=== PATIENT | female | born 1945 | race Caucasian/White ===

== ENCOUNTER → 2020-08-08 14:03 | Outpatient (BNVA) | payer MEDICARE, SELFPAY | PROVIDERS: PCP Internal Medicine; Visit Provider Hospitalist | DX: J47.9 Bronchiectasis, uncomplicated (principal); J45.909 Unspecified asthma, uncomplicated; R91.8 Other nonspecific abnormal finding of lung field; A31.9 Mycobacterial infection, unspecified | CPT/HCPCS: 99212 ==

== ENCOUNTER 2020-10-28 13:59 | Outpatient (REF) | payer MEDICARE, SELFPAY ==
--- NOTE | 2020-10-28 16:34 | PFT_ITS ---
INDICATION: Bronchiectasis. SPIROMETRY: The FEV1 to FVC 54% with an FEV1 of 1.1 L, which is 49% predicted, and an FVC of 2.05 L, which is 69% predicted. There was a significant response to bronchodilators noted. Maximum voluntary ventilation 49% predicted. LUNG VOLUMES: Total lung capacity 73% predicted. DIFFUSION CAPACITY: DLCO 31% predicted. COMPARISONS: None available. INTERPRETATION: There is an obstructive ventilatory defect consistent with severe COPD. There was a significant response to bronchodilators noted. There is a moderate to severe decrease in the maximum voluntary ventilation secondary to likely deconditioning. 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 In addition to that, there appears to be a severe diffusion impairment. Also to note, the patient did go for 6 minutes walk test where she desaturated down to 86% on room air with activity. The patient did qualify for oxygen 2 L with activity, maintaining a pulse ox in the low 90s. MD AZUCENA Gonzalez/VIANEY / [id number]
[2020-10-28 18:13] LABS: MANUAL DIFF FLAG NO
[2020-10-28 18:24] LABS: Basophils Absolute Auto 0.1 X10*3/uL (0.0-0.2); Basophils Percent Auto 0.7 % (0-2); D Dimer 252 NG/ML; Eosinophils Absolute Auto 0.4 X10*3/uL (0.0-0.4); Eosinophils Percent Auto 3.8 % (0-4); Hematocrit 37.1 % (37-47); Hemoglobin 12.9 g/dl (12.0-16.0); Imm Gran Abs Auto 0.05 X10*3/uL (0.00-0.03); Imm Gran Pct Auto 0.5 % (0.0-0.4); Lymphocytes Percent Auto 18.1 % (20-40); Mean Corpuscular HGB Conc 34.8 g/dl (31.0-35.0); Mean Corpuscular Hemoglobin 31.9 pg (27.0-33.0); Mean Corpuscular Volume 91.6 fL (80-98); Mean Platelet Volume 11.1 fL (9.4-12.3); Monocytes Absolute Auto 1.1 X10*3/uL (0.1-1.2); Monocytes Percent Auto 9.5 % (2-11); Neutrophils Absolute Auto 7.4 X10*3/uL (2.0-8.3); Neutrophils Percent Auto 67.4 % (45-73); Platelet Count 250 X10*3/uL (160-400); Red Blood Count 4.05 X10*6/uL (4.20-5.50); Red Cell Distribution Width 11.9 % (11.0-16.0)
[2020-10-28 18:36] LABS: Anion Gap 15 (12-20); Blood Urea Nitrogen 15 mg/dL (9-16); Calcium 9.1 mg/dL (8.4-10.2); Carbon Dioxide 28 mmol/L (22-29); Chloride 96 mmol/L (96-108); Estimated Glomerular Filt Rate > 60; Glucose Random 86 mg/dL (60-115); Potassium 3.6 mmol/L (3.3-5.1); Sodium 135 mmol/L (135-145)
[2020-10-28 18:41] LABS: Troponin-I High Sensitivity 3.9 ng/L (<3.5-17.0)
[2020-10-28 18:56] LABS: Erythrocyte Sedimentation Rate 6 MM/HR (0-20)
[2020-10-30 06:46] LABS: Immunoglobulin E 47 kU/L (<OR=114)
[2020-10-30 13:56] LABS: IgA 256 mg/dL (70-320); IgG 918 mg/dL (600-1540); IgM 34 mg/dL (50-300)
[2020-10-30 23:57] LABS: Immunoglobulin G Subclass 1 573 mg/dL (382-929); Immunoglobulin G Subclass 2 232 mg/dL (241-700); Immunoglobulin G Subclass 3 49 mg/dL (22-178); Immunoglobulin G Subclass 4 3.2 mg/dL (4-86); Immunoglobulin G Total 916 mg/dL (600-1540)
== END 2020-10-28 14:00 | disposition home or self-care (01) ==
LOC: HO.RESP 13:59
PROVIDERS: PCP Internal Medicine; Visit Provider Hospitalist
DX: J47.9 Bronchiectasis, uncomplicated (principal); R09.02 Hypoxemia; R91.8 Other nonspecific abnormal finding of lung field; A31.9 Mycobacterial infection, unspecified; R79.89 Other specified abnormal findings of blood chemistry
CPT/HCPCS: 36415; 80048; 82784; 82785; 84484; 85025; 85379; 85652; 94060; 94727; 94729; 99212

== ENCOUNTER 2020-10-29 13:48 | Outpatient (REF) | payer MEDICARE, SELFPAY ==
--- NOTE | ~2020-10-29 | CT_ITS ---
EXAMINATION: CT ANGIOGRAM OF THE CHEST WITH AND WITHOUT CONTRAST (CT PULMONARY ANGIOGRAM FOR PE) CLINICAL INFORMATION: Reason for Exam R09.02 - Hypoxemia COMPARISON: None TECHNIQUE: Prior to contrast administration, noncontrast localization images were obtained. Subsequently, multidetector volumetric imaging was performed from the thoracic inlet to below the diaphragms following the administration of 65 mL Omnipaque 350 intravenous contrast. No contrast reaction reported Sagittal, coronal, and MIP oblique sagittal reformatted images were obtained on the CT workstation, uploaded to PACS, and reviewed. This CT examination was performed using dose optimization techniques as appropriate, variously including the following: *Automated exposure control *Adjustment of mA and/or kV according to patient size (this includes techniques or standardized protocols for targeted exams where dose is matched to indication/reason for exam; i.e. extremities or head) *Use of iterative reconstruction technique Total exam dose-length product 109 mGy-cm FINDINGS: QUALITY OF STUDY/CONTRAST BOLUS: Satisfactory. PULMONARY ARTERIES: No central or segmental pulmonary emboli. THORACIC AORTA: No aneurysm or dissection. There are vascular calcifications of the wall of the thoracic aorta. LUNG: There is mild mosaic attenuation of lung parenchyma. There are numerous calcified and noncalcified lung nodules bilaterally. Largest nodule in the left upper lobe is densely calcified consistent with granuloma measuring 6 mm, axial image 28/49 series 6. There is a partially calcified 6 mm nodule in the medial right lower lobe axial image 30/49. Most of the nodules are micronodules measuring less than 3 mm in size. There is diffuse scattered mild bronchiectasis. This is associated with bronchial wall thickening. There are a few scattered regions of architectural distortion, for example right upper lobe axial image 15/49 series 6, coronal image 57/104 series 7. There are scattered tree-in-bud opacities predominating in the upper lobes. Focal pleural-based lesion at the anterior right lung base and right middle lobe measuring 2.7 x 1 x 1 cm which has faint calcifications within. PLEURA: No pleural effusion or pneumothorax. MEDIASTINUM: Normal heart size. No pericardial effusion. No hilar or mediastinal lymphadenopathy. No evidence of septal bowing or right heart strain. CHEST WALL/AXILLA: No axillary or internal mammary lymphadenopathy. OSSEOUS STRUCTURES: No acute or suspicious osseous abnormality. UPPER ABDOMEN: There is a vague 6 mm hypodensity in the dome right lobe of liver axial image 43/60 series 5. Visualized portions of spleen, pancreas, kidneys and adrenal gland are unremarkable. No reflux of contrast into the hepatic veins to suggest elevated right heart pressures. CT/CT angio chest PE protocol IMPRESSION: 1. No evidence of pulmonary embolus. 2. Mild mosaic attenuation lung parenchyma. Diffuse mild bronchiectasis with bronchial wall thickening. Scattered micronodules and architectural distortion lungs that are likely chronic. There are tree-in-bud opacities in the upper lobes which can be seen with indolent infection though there is no dense consolidation. 3. Focal pleural density at the right anterior lung base with calcification likely chronic therefore. There are no old films available for comparison. Consider short-term follow-up CT chest study in 3 months. VTE: negative
== END 2020-10-29 13:49 | disposition home or self-care (01) ==
LOC: HO.CT 13:48
PROVIDERS: PCP Internal Medicine; Visit Provider Hospitalist
DX: R09.02 Hypoxemia (principal); R79.89 Other specified abnormal findings of blood chemistry
CPT/HCPCS: 71275

== ENCOUNTER → 2020-11-13 14:02 | Outpatient (BNVA) | payer MEDICARE, SELFPAY | PROVIDERS: PCP Internal Medicine; Visit Provider Hospitalist | DX: J44.9 Chronic obstructive pulmonary disease, unspecified (principal); R91.8 Other nonspecific abnormal finding of lung field; A31.9 Mycobacterial infection, unspecified; J47.9 Bronchiectasis, uncomplicated | CPT/HCPCS: 99212 ==

== ENCOUNTER → 2021-01-01 13:46 | Outpatient (BNVA) | payer MEDICARE, SELFPAY | PROVIDERS: PCP Internal Medicine; Visit Provider Hospitalist | DX: J44.9 Chronic obstructive pulmonary disease, unspecified (principal); A31.9 Mycobacterial infection, unspecified; R09.02 Hypoxemia; R91.8 Other nonspecific abnormal finding of lung field; J47.9 Bronchiectasis, uncomplicated | CPT/HCPCS: 99212 ==

== ENCOUNTER → 2021-03-26 13:21 | Outpatient (BNVA) | payer MEDICARE, SELFPAY | PROVIDERS: PCP Internal Medicine; Visit Provider Hospitalist | DX: J44.9 Chronic obstructive pulmonary disease, unspecified (principal); A31.9 Mycobacterial infection, unspecified; R09.02 Hypoxemia; R91.8 Other nonspecific abnormal finding of lung field; R94.31 Abnormal electrocardiogram [ECG] [EKG]; J47.9 Bronchiectasis, uncomplicated; K76.89 Other specified diseases of liver | CPT/HCPCS: 99212 ==

== ENCOUNTER 2021-06-30 12:53 | Outpatient (REF) | payer MEDICARE, SELFPAY ==
--- NOTE | ~2021-06-30 | CT_ITS ---
EXAMINATION: CT CHEST WITHOUT CONTRAST CLINICAL INFORMATION: Follow-up pulmonary nodules COMPARISON: Previous chest CT scans most recent October 2020 TECHNIQUE: Multidetector volumetric CT imaging of the chest was done. Axial MIP volume rendering provided. Sagittal and coronal reformatted images were obtained. This CT examination was performed using dose optimization techniques as appropriate, variously including the following: *Automated exposure control *Adjustment of mA and/or kV according to patient size (this includes techniques or standardized protocols for targeted exams where dose is matched to indication/reason for exam; i.e. extremities or head) *Use of iterative reconstruction technique DLP: 103 mGy-cm FINDINGS: LUNGS: There is extensive bronchiectasis, bronchial wall thickening, peribronchial attenuation and clustered peribronchial nodules or tree-in-bud appearance seen throughout the lungs. This is greatest in the right right lung and left lower lobe. There are areas of mucus plugging seen in the bilateral lower lobes. This is not appear appreciably changed from previous exams. Large noncalcified pulmonary nodule measures 9 mm in the superior segment of the right lower lobe axial image 27 series 3. Largest calcified pulmonary nodules are multiple adjacent clustered calcified right middle lobe nodules and 6 mm left upper lobe nodule. MEDIASTINUM: There are small subcarinal and left hilar calcified lymph nodes. No enlarged hilar or mediastinal lymph nodes are seen. The mediastinum is otherwise normal. PLEURA: There is no pleural effusion. No pleural mass or thickening. AXILLA: No lymphadenopathy. UPPER ABDOMEN: There is a small 7 mm low-attenuation lesion at the junction of the anterior segment of the right lobe and medial segment the left lobe of the liver axial image 46 that is stable and may represent a small cyst or OSSEOUS STRUCTURES: There are degenerative changes of the spine, curvature to the right and increased thoracic kyphosis. CT/CT chest wo con IMPRESSION: Bronchiectasis and extensive airways disease similar to previous exams. Fleischner guidelines were followed.
== END 2021-06-30 12:54 | disposition home or self-care (01) ==
LOC: HO.CT 12:53
PROVIDERS: PCP Internal Medicine; Visit Provider Hospitalist
DX: R91.8 Other nonspecific abnormal finding of lung field (principal); J47.9 Bronchiectasis, uncomplicated
CPT/HCPCS: 71250

== ENCOUNTER 2021-11-09 12:58 | Outpatient (REF) | payer MEDICARE, SELFPAY ==
--- NOTE | 2021-11-09 16:56 | PFT_ITS ---
INDICATION: Dyspnea and bronchiectasis. SPIROMETRY: FEV1 to FVC of 55% with an FEV1 of 1.13 L which is 53% predicted, an FVC of 2.06 L which is 72% predicted. No significant response to bronchodilators noted. Of note, the patient has significant small airways disease with a FEF 25/75 of 16% predicted. Maximum voluntary ventilation 42% predicted. LUNG VOLUMES: Total lung capacity 68% predicted. DIFFUSION CAPACITY: DLCO 35% predicted. COMPARISONS: PFTs from 2020. INTERPRETATION: There is an obstructive ventilatory defect consistent with [id number] COPD. No significant response to bronchodilators noted. There is also [id number] decrease in the maximum voluntary ventilation secondary to likely deconditioning. In addition to the lung volumes demonstrate a restrictive ventilatory defect, consistent with moderate restrictive lung disease. The patient also has severe diffusion impairment. When compared to 2020, there was a trend improvement of the FVC, a trend improvement in the FEV1, trend improvement in the diffusion capacity, but trend decrease in the total lung capacity. Clinical correlation warranted. MD AZUCENA Gonzalez/MODL / [id number]
== END 2021-11-09 12:59 | disposition home or self-care (01) ==
LOC: HO.RESP 12:58
PROVIDERS: PCP Internal Medicine; Visit Provider Hospitalist
DX: R06.00 Dyspnea, unspecified (principal); R91.8 Other nonspecific abnormal finding of lung field; A31.9 Mycobacterial infection, unspecified; J47.9 Bronchiectasis, uncomplicated; M54.50 Low back pain, unspecified; M54.6 Pain in thoracic spine; Z79.899 Other long term (current) drug therapy
CPT/HCPCS: 94060; 94727; 94729; 99212

== ENCOUNTER 2021-12-31 11:53 | Outpatient (RCR) | payer MEDICARE, SELFPAY ==
--- NOTE | 2021-12-31 14:45 | MHC.PT.EP ---
[facility] [place] Office [place] [facility] [place] Office [address] [phone] F: [phone] F: [phone] F: [phone] F: [phone] Physical Therapy Plan of Care Date of Evaluation: Date of Surgery: n/a Diagnosis: Low back pain, unspecified pain in thoracic spine Assessment: Pt is a pleasant 76yo F who presents to PT with burning sensation in thoracic spine region for years. She reports recently burning sensation has increased in frequency. She has also been wearing percussion vest recently as she has significant pulmonary PMH. She presents today with current impairments in pain/burning, decreased thoracic ROM, soft tissue restrictions, impaired posture and gait. She is TTP throughout medial scap border B, B UT and levator, and B thoracic paraspinals. She is limited functionally by prolonged standing and walking. She is a good candidate for skilled PT in order to address current impairments to facilitate return to PLOF. She will be seen 2x/week for 4 weeks and will be reassessed at that time. Frequency and Duration: The patient will be seen 2x/week for 4 weeks Short Term Goals: Pt will be I with HEP to promote self management of symptoms Pt will demonstrate improvements in postural awareness Mcc Goals: Pt will tolerate prolonged standing > 30 min with minimal to no discomfort to assist with standing functional tasks Pt will demonstrate improvements in function as evidenced by statistically significant improvement in Modified Oswestry Low Back Pain Disability Questionnaire Treatment Plan: Modalities to reduce pain, spasms and effusion. Manual therapy to restore motion and function. Therapeutic exercise to improve strength and flexibility. Neuromuscular re-education for posture and balance. Therapeutic activities to return to functional activities of daily living. Electronically signed by: Carolyn Bal, PT, DPT Please sign and return to therapist. Thank you for your referral.
--- NOTE | 2022-02-04 15:23 | MHC.PT.DC ---
[facility] [place] [facility] [place] [facility] [place] Office [address] Vipul Serrano [address] [phone] F: [phone] F: [phone] F: [phone] F: [phone] Physical Therapy Discharge Report Diagnosis: Low back pain, unspecified pain in thoracic spine Date of Surgery: n/a Date of Evaluation: 12/31/21 Date of Discharge: 02/04/22 Treatments to Date: 1 Cancellations to Date: 9 No Shows to Date: Discharge Status: Visit Non-compliance Discharge Summary: Pt attended initial PT evaluation on 12/31/21. She has had 9 cancellations since initial PT evaluation. Pt is being D/C per visit non-compliance as she has not attended in > 30 days. Pt current level of function unknown at this time. Electronically signed by: Carolyn Bal, PT, DPT Please sign and return to therapist. Thank you for your referral.
== END 2022-02-04 15:23 | disposition home or self-care (01) ==
LOC: HO.PT 11:53
PROVIDERS: PCP Internal Medicine; Visit Provider Hospitalist
DX: M54.50 Low back pain, unspecified (principal); M54.6 Pain in thoracic spine
CPT/HCPCS: 97110; 97162

== ENCOUNTER → 2022-05-17 13:54 | Outpatient (BNVA) | payer MEDICARE, SELFPAY | PROVIDERS: PCP Internal Medicine; Visit Provider Hospitalist | DX: J44.9 Chronic obstructive pulmonary disease, unspecified (principal); R09.02 Hypoxemia; R91.8 Other nonspecific abnormal finding of lung field; A31.9 Mycobacterial infection, unspecified; J47.9 Bronchiectasis, uncomplicated; K76.89 Other specified diseases of liver | CPT/HCPCS: 93005; 99212 ==

== ENCOUNTER 2022-06-03 09:28 | Outpatient (REF) | payer MEDICARE, SELFPAY ==
--- NOTE | ~2022-06-03 | CT_ITS ---
EXAMINATION: CT CHEST WITHOUT CONTRAST CLINICAL INFORMATION: R91.8 - Other nonspecific abnormal finding of lung field. Pulmonary nodules, bronchiectasis. COMPARISON: CT chest noncontrast 06/30/2021, CT chest with contrast 06/30/2021, outside CT chest noncontrast 07/02/2020 ([facility] TECHNIQUE: Multidetector volumetric CT imaging of the chest is performed without intravenous contrast. Axial MIP volume rendering provided. Sagittal and coronal reformatted images were obtained. This CT examination was performed using dose optimization techniques as appropriate, variously including the following: *Automated exposure control *Adjustment of mA and/or kV according to patient size (this includes techniques or standardized protocols for targeted exams where dose is matched to indication/reason for exam; i.e. extremities or head) *Use of iterative reconstruction technique DLP: 98 mGy-cm FINDINGS: LUNGS: The lungs appear stable from prior exam 06/30/2021 and outside exam 07/02/2020. There is no interval mass or enlarging nodule or airspace consolidation. Extensive bronchiectasis and bronchiolar wall thickening is again seen with some scattered areas of mucous plugging. Dominant predominantly calcified nodule anterior lateral left upper lobe approximately 0.7 cm again seen. There is a stable 0.4 cm nodule superior segment left lower lobe. Scattered accentuated reticular markings are similar in distribution and severity. There are reticulonodular changes left apex. Scattered reticular nodular densities right upper lobe and apex. Pleural superior segment right lower lobe stable. There is a pleural-based lobulated density anterior lateral base with scattered coarse calcifications which is a chronic finding. Small scattered calcified granulomata are again noted right upper lobe adjacent to minor fissure. MEDIASTINUM: Heart size normal. No pericardial effusion. Thoracic aorta normal in caliber. No hilar or mediastinal adenopathy. Small calcified subcarinal and left hilar nodes again seen. There is nonspecific mild circumferential thickening lower esophagus. No definable esophageal mass. CORONARY ARTERY CALCIFICATION: No definite coronary artery calcification. PLEURA: No pleural effusion. No interval pleural mass or thickening. No pneumothorax. AXILLA: No lymphadenopathy. UPPER ABDOMEN: Probable small cysts on liver similar to CT with contrast 2020. OSSEOUS STRUCTURES: No acute bony abnormality. CT/CT chest wo IV con IMPRESSION: -Chronic lung abnormalities similar to prior studies 06/30/2021,07/02/2020. -No enlarging nodule or interval mass, airspace consolidation, adenopathy, or effusion. -Bronchiectasis and bronchiolar wall thickening with scattered areas of mucous plugging. -Scattered reticular nodular densities and pleural-based densities stable from prior exams. -Mild nonspecific circumferential thickening lower esophagus. No definable esophageal mass. Fleischner guidelines were followed.
== END 2022-06-03 09:29 | disposition home or self-care (01) ==
LOC: HO.CT 09:28
PROVIDERS: Visit Provider Hospitalist
DX: R91.8 Other nonspecific abnormal finding of lung field (principal)
CPT/HCPCS: 71250

== ENCOUNTER → 2022-08-02 14:09 | Outpatient (BNVA) | payer MEDICARE, SELFPAY | PROVIDERS: PCP Internal Medicine; Visit Provider Hospitalist | DX: J47.1 Bronchiectasis with (acute) exacerbation (principal); R09.02 Hypoxemia; A31.9 Mycobacterial infection, unspecified; R91.8 Other nonspecific abnormal finding of lung field; K76.89 Other specified diseases of liver | CPT/HCPCS: 87070; 87077; 87116; 87185; 87205; 87206; 94640; 99212 ==

== ENCOUNTER 2022-08-02 15:09 | Outpatient (REF) | payer MEDICARE, SELFPAY | END 2022-08-02 15:10 | disposition home or self-care (01) | LOC: HO.LNP 15:09 | PROVIDERS: Visit Provider Hospitalist | DX: Z13.89 Encounter for screening for other disorder (principal) | CPT/HCPCS: 87070; 87116; 87205; 87206; 99212 ==

== ENCOUNTER → 2022-09-20 14:02 | Outpatient (BNVA) | payer MEDICARE, SELFPAY | PROVIDERS: PCP Internal Medicine; Visit Provider Hospitalist | DX: J47.1 Bronchiectasis with (acute) exacerbation (principal); A31.9 Mycobacterial infection, unspecified; R09.02 Hypoxemia; R91.8 Other nonspecific abnormal finding of lung field; K76.89 Other specified diseases of liver; Z79.899 Other long term (current) drug therapy; Z99.81 Dependence on supplemental oxygen | CPT/HCPCS: 99212 ==

== ENCOUNTER 2022-10-29 14:21 | Emergency (ER) | payer MEDICARE, SELFPAY ==
--- NOTE | ~2022-10-29 | XR_ITS ---
EXAMINATION: XR CHEST CLINICAL INFORMATION: Torus breath COMPARISON: CT of June 03, 2022 and studies dating back to July 02, 2020 TECHNIQUE: 2 views of the chest were obtained. FINDINGS: There are changes of chronic interstitial lung disease and scarring within the right lung with some loss of volume. Stable irregular density about the right lower lung with diaphragmatic attachment again seen. Calcified granuloma noted within the mid left lung. No pneumothorax or significant pleural effusion. Heart normal size. No evidence of pulmonary edema. XR/XR chest 2V IMPRESSION: Chronic interstitial lung disease with associated scarring. Old granulomatous disease. No significant acute parenchymal disease appreciated.
[2022-10-29 14:31] VITALS: BP 146/67; PULSE 73; RESP 18; TEMP 37.1; O2SAT 93; BMI 23.1
[2022-10-29 14:49] LABS: MANUAL DIFF FLAG NO
[2022-10-29 14:58] LABS: Basophils Absolute Auto 0.1 X10*3/uL (0.0-0.2); Basophils Percent Auto 0.7 % (0-2); Eosinophils Percent Auto 7.8 % (0-4); Hematocrit 33.8 % (37.0-47.0); Hemoglobin 11.5 g/dl (12.0-16.0); Imm Gran Pct Auto 0.8 % (0.0-0.4); Lymphocytes Absolute Auto 1.6 X10*3/uL (1.2-4.9); Lymphocytes Percent Auto 13.4 % (20-40); Mean Corpuscular Hemoglobin 31.3 pg (27.0-33.0); Mean Corpuscular Volume 92.1 fL (80.0-98.0); Monocytes Absolute Auto 1.1 X10*3/uL (0.1-1.2); Monocytes Percent Auto 9.1 % (2-11); Neutrophils Absolute Auto 8.4 x10*3/uL (2.0-8.3); Neutrophils Percent Auto 68.2 % (45-73); Platelet Count 189 X10*3/uL (160-400); Red Blood Count 3.67 X10*6/uL (4.20-5.50); White Blood Count 12.2 X10*3/uL (4.8-10.8)
[2022-10-29 15:03] LABS: Anion Gap 10 (12-20); Blood Urea Nitrogen 31 mg/dL (9-16); Calcium 8.9 mg/dL (8.4-10.2); Carbon Dioxide 28 mmol/L (22-29); Chloride 101 mmol/L (96-108); Creatinine Clr Calc Pharmacy 44.4; Estimated Glomerular Filt Rate 59; Glucose Random 118 mg/dL (60-115); Potassium 3.7 mmol/L (3.3-5.1); Sodium 135 mmol/L (135-145)
--- NOTE | 2022-10-29 18:30 | ED_ITS ---
HPI - General Adult General Chief complaint: Dyspnea <STEPHEN Bryant - Last Filed: 10/29/22 18:31> Stated complaint: Diff Breathing <STEPHEN Bryant - Last Filed: 10/29/22 18:31> Time Seen by Provider: 10/29/22 21:34 <STEPHEN Bryant - Last Filed: 10/29/22 18:31> Source: patient <Fareed Sotelo MD - Last Filed: 10/29/22 23:10> Mode of arrival: ambulatory <Fareed Sotelo MD - Last Filed: 10/29/22 23:10> Limitations: no limitations <Fareed Sotelo MD - Last Filed: 10/29/22 23:10> History of Present Illness HPI narrative: Patient is 77 years old with history of bronchiectasis, COPD, known tuberculosis mycobacterial infection, colonization with Pseudomonas and frequent exacerbation of bronchiectasis on 3 L of oxygen as needed on exertion at home comes here as patient noticed pulse ox dropped to 85% on slight ambulation u sually patient dropped to 89% but this time to 85% no fever no chills no increase in phlegm production no chest pain or palpitations. Patient just finished a course of prednisone and doxycycline <Fareed Sotelo MD - Last Filed: 10/29/22 23:10> Related Data Home medications: Home Medications Medication Instructions Recorded Confirmed amlodipine 5 mg tablet 5 mg PO DAILY 08/08/20 01/01/21 hydrochlorothiazide 25 mg tablet 25 mg PO DAILY 08/08/20 01/01/21 levothyroxine 88 mcg capsule 88 mcg PO DAILY 08/08/20 01/01/21 metoprolol tartrate 50 mg tablet 50 mg PO DAILY 08/08/20 01/01/21 trazodone 50 mg tablet 50 mg PO DAILY 08/08/20 01/01/21 nebulizers 05/17/22 Previous Rx's Medication Instructions Recorded budesonide-formoterol HFA 160 2 puff inhalation BID #10.2 grams 08/11/20 mcg-4.5 mcg/actuation aerosol inhaler (Symbicort) sodium chloride 7 % for 4 ml inhalation BID #240 mL 05/13/22 nebulization azithromycin 500 mg tablet 500 mg PO 3XW #12 tabs 05/17/22 benzonatate 200 mg capsule 200 mg PO BID PRN cough 30 days 05/17/22 #30 caps codeine 10 mg-guaifenesin 100 mg/5 10 ml PO Q6H PRN cough 10 days 05/17/22 mL oral liquid #300 mL amoxicillin 875 mg-potassium 1 tab PO BID 14 days #28 tabs 09/20/22 clavulanate 125 mg tablet prednisone 20 mg tablet See Rx Instructions PO DAILY 10 09/20/22 days #15 tabs doxycycline monohydrate 100 mg 100 mg PO BID 14 days #28 tabs 10/15/22 tablet prednisone 20 mg tablet See Rx Instructions PO DAILY 10 10/15/22 days #15 tabs albuterol sulfate 2.5 mg/3 mL 2.5 mg (3 mL) inhalation Q4H #150 10/27/22 (0.083 %) solution for nebulization mL <STEPHEN Bryant - Last Filed: 10/29/22 18:31> Allergies/adverse reactions: Allergies Allergy/AdvReac Type Severity Reaction Status Date / Time Cipro Allergy Severe Rash Uncoded 09/20/22 14:12 <STEPHEN Bryant - Last Filed: 10/29/22 18:31> Review of Systems Review of Systems: Yes all other systems are reviewed and are negative <Fareed Sotelo MD - Last Filed: 10/29/22 23:10> [facility] Past Medical History Medical History: Medical History Abnormal EKG Asthma Asthma-COPD overlap syndrome Back pain of thoracolumbar region Bronchiectasis Chest pain D-dimer, elevated Hypoxia Mycobacterial disease Nodule on liver Pulmonary nodules <STEPHEN Bryant - Last Filed: 10/29/22 18:31> Social History Social History: Social History Household Members: Spouse Household Members Other:: Fili Patient Tobacco Use Status: Never used Tobacco Second Hand Smoke Exposure: No Advance Directives: No Advance Directives Information Provided: No <STEPHEN Bryant - Last Filed: 10/29/22 18:31> Physical Exam ED Vital Signs: Vital Signs - 24 hr 10/29/22 14:31 10/29/22 21:36 10/29/22 23:04 Temperature 98.7 F 98.0 F 97.9 F Pulse Rate 73 71 69 Respiratory Rate 18 21 H 17 Blood Pressure 146/67 H 158/80 H 169/76 H Pulse Oximetry 93 92 92 Oxygen Delivery Method Room Air Room Air Room Air BMI result Body Mass Index 23.1 <STEPHEN Bryant - Last Filed: 10/29/22 18:31> Vital Signs - 24 hr 10/29/22 14:31 10/29/22 21:36 10/29/22 23:04 Temperature 98.7 F 98.0 F 97.9 F Pulse Rate 73 71 69 Respiratory Rate 18 21 H 17 Blood Pressure 146/67 H 158/80 H 169/76 H Pulse Oximetry 93 92 92 Oxygen Delivery Method Room Air Room Air Room Air BMI result Body Mass Index 23.1 <Fareed Sotelo MD - Last Filed: 10/29/22 23:10> Appearance: Alert. Oriented X3. No acute distress. Eyes: PERRLA, No Nystagmus ENT: Pharynx normal. Oral Mucosa moist Neck: Normal inspection. Neck supple. CVS: Normal heart rate and rhythm. Pulses normal. Respiratory: No respiratory distress. Equal air entry bilateral, prolonged expiration occasional crackles Abdomen: Soft and nontender. Bowel sounds are present, no mass palpable, no CVA tenderness Skin: Skin warm and dry. Normal skin color. Normal skin turgor. Extremities: No lower extremity edema. No calf tenderness Neuro: Oriented X 3. No motor deficit. No sensory deficit.No cerebellar signs , cranial nerves II-XII intact <Fareed Sotelo MD - Last Filed: 10/29/22 23:10> Course Course Course Narrative: RME performed by Anitha Feliz PA-C. Patient is a 77 year old assigned female at presenting to the emergency department with increased SOB and decreased SPO2 levels. Patient was sent in by her buttonhole maker Dr. Rocha. Labs, imaging, and swab ordered. Patient placed back in the waiting room pending room availability and results. <STEPHEN Bryant - Last Filed: 10/29/22 18:31> Medications Administered Discontinued Medications Generic Name Dose Route Start Last Admin Trade Name Freq PRN Reason Stop Dose Admin Albuterol Sulfate 2.5 mg/ 0 mg 10/29/22 21:45 10/29/22 22:49 Albuterol/Ipratropium 3 ml INHALE 10/29/22 21:46 Not Given ONCE ONE <STEPHEN Bryant - Last Filed: 10/29/22 18:31> Medications Administered Discontinued Medications Generic Name Dose Route Start Last Admin Trade Name Karlie PRN Reason Stop Dose Admin Albuterol Sulfate 2.5 mg/ 0 mg 10/29/22 21:45 10/29/22 22:49 Albuterol/Ipratropium 3 ml INHALE 10/29/22 21:46 Not Given ONCE ONE <Fareed Sotelo MD - Last Filed: 10/29/22 23:10> Medical Decision Making Medical Decision Making [facility] Narrative: Patient with known lung disease with bronchiectasis no acute chest x-ray findings labs are stable saturating 93% at room air will discharge patient home advised to use oxygen and nebulized treatment as needed and follow with lung spe cialist <Fareed Sotelo MD - Last Filed: 10/29/22 23:10> Lab Data [facility] Lab Attestation statement: I reviewed the patient's lab results. <Fareed Sotelo MD - Last Filed: 10/29/22 23:10> Result Diagrams: 10/29/22 14:45 10/29/22 14:45 <STEPHEN Bryant - Last Filed: 10/29/22 18:31> Labs: Lab Results 10/29/22 10/29/22 10/29/22 Range/Units 14:45 14:45 18:41 WBC 12.2 H (4.8-10.8) X10*3/uL RBC 3.67 L (4.20-5.50) X10*6/uL Hgb 11.5 L (12.0-16.0) g/dl Hct 33.8 L (37.0-47.0) % MCV 92.1 (80.0-98.0) fL MCH 31.3 (27.0-33.0) pg MCHC 34.0 (31.0-35.0) g/dl RDW 12.0 (11.0-16.0) % Plt Count 189 (160-400) X10*3/uL MPV 10.0 (9.4-12.3) fL Immature Gran % (Auto) 0.8 H (0.0-0.4) % Neut % (Auto) 68.2 (45-73) % Lymph % (Auto) 13.4 L (20-40) % [place] % (Auto) 9.1 (2-11) % Eos % (Auto) 7.8 H (0-4) % Baso % (Auto) 0.7 (0-2) % Lymph # (Auto) 1.6 (1.2-4.9) X10*3/uL [place] # (Auto) 1.1 (0.1-1.2) X10*3/uL Eos # (Auto) 1.0 H (0.0-0.4) X10*3/uL Baso # (Auto) 0.1 (0.0-0.2) X10*3/uL Abs Immat Gran (auto) 0.10 H (0.00-0.03) X10*3/uL Absolute Neuts (auto) 8.4 H (2.0-8.3) x10*3/uL Absolute Nucleated RBC 0.000 (0.0-0.012) X10*3/uL Nucleated RBC % (auto) 0.0 (0.0-0.2) /100WBC Sodium 135 (135-145) mmol/L Potassium 3.7 (3.3-5.1) mmol/L Chloride 101 (96-108) mmol/L Carbon Dioxide 28 (22-29) mmol/L Anion Gap 10 L (12-20) BUN 31 H (9-16) mg/dL Creatinine 0.93 (0.5-1.4) mg/dL Estim Creat Clear Calc 44.4 Estimated GFR 59 Random Glucose 118 H (60-115) mg/dL Calcium 8.9 (8.4-10.2) mg/dL Influenza Type A (PCR) NEGATIVE (Negative) Influenza Type B (PCR) NEGATIVE (Negative) RSV RNA Qual (PCR) NEGATIVE (Negative) SARS-CoV-2 RNA (RT-PCR) NEGATIVE (Negative) <STEPHEN Bryant - Last Filed: 10/29/22 18:31> Lab Results 10/29/22 10/29/22 10/29/22 Range/Units 14:45 14:45 18:41 WBC 12.2 H (4.8-10.8) X10*3/uL RBC 3.67 L (4.20-5.50) X10*6/uL Hgb 11.5 L (12.0-16.0) g/dl Hct 33.8 L (37.0-47.0) % MCV 92.1 (80.0-98.0) fL MCH 31.3 (27.0-33.0) pg MCHC 34.0 (31.0-35.0) g/dl RDW 12.0 (11.0-16.0) % Plt Count 189 (160-400) X10*3/uL MPV 10.0 (9.4-12.3) fL Immature Gran % (Auto) 0.8 H (0.0-0.4) % Neut % (Auto) 68.2 (45-73) % Lymph % (Auto) 13.4 L (20-40) % [place] % (Auto) 9.1 (2-11) % Eos % (Auto) 7.8 H (0-4) % Baso % (Auto) 0.7 (0-2) % Lymph # (Auto) 1.6 (1.2-4.9) X10*3/uL [place] # (Auto) 1.1 (0.1-1.2) X10*3/uL Eos # (Auto) 1.0 H (0.0-0.4) X10*3/uL Baso # (Auto) 0.1 (0.0-0.2) X10*3/uL Abs Immat Gran (auto) 0.10 H (0.00-0.03) X10*3/uL Absolute Neuts (auto) 8.4 H (2.0-8.3) x10*3/uL Absolute Nucleated RBC 0.000 (0.0-0.012) X10*3/uL Nucleated RBC % (auto) 0.0 (0.0-0.2) /100WBC Sodium 135 (135-145) mmol/L Potassium 3.7 (3.3-5.1) mmol/L Chloride 101 (96-108) mmol/L Carbon Dioxide 28 (22-29) mmol/L Anion Gap 10 L (12-20) BUN 31 H (9-16) mg/dL Creatinine 0.93 (0.5-1.4) mg/dL Estim Creat Clear Calc 44.4 Estimated GFR 59 Random Glucose 118 H (60-115) mg/dL Calcium 8.9 (8.4-10.2) mg/dL Influenza Type A (PCR) NEGATIVE (Negative) Influenza Type B (PCR) NEGATIVE (Negative) RSV RNA Qual (PCR) NEGATIVE (Negative) SARS-CoV-2 RNA (RT-PCR) NEGATIVE (Negative) <Fareed Sotelo MD - Last Filed: 10/29/22 23:10> Discharge Plan Discharge Clinical Impression: Chronic interstitial lung disease, Bronchiectasis <STEPHEN Bryant - Last Filed: 10/29/22 18:31> Patient Disposition: Home, Self-Care <STEPHEN Bryant - Last Filed: 10/29/22 18:31> Instructions: Bronchiectasis (ED) <STEPHEN Bryant - Last Filed: 10/29/22 18:31> Additional Instructions: Continue antibiotics and nebulizing treatment as provided by a lung specialist Continue to use your oxygen as needed Follow with your lung specialist <STEPHEN Bryant - Last Filed: 10/29/22 18:31> Prescriptions: No Action budesonide-formoterol [Symbicort] 160-4.5 mcg/actuation HFA aerosol inhaler 2 puff inhalation BID Qty: 10.2 2RF sodium chloride 7 % solution for nebulization 4 ml inhalation BID Qty: 240 11RF azithromycin 500 mg tablet 500 mg PO 3XW Qty: 12 6RF prednisone 20 mg tablet See Rx Instructions PO DAILY 10 Days Qty: 15 0RF Rx Instructions: PO daily; Take 2 tabs daily x 5 days, then 1 tablet daily x 5 days doxycycline monohydrate 100 mg tablet 100 mg PO BID 14 Days Qty: 28 0RF albuterol sulfate 2.5 mg /3 mL (0.083 %) solution for nebulization 2.5 mg inhalation Q4H Qty: 150 0RF metoprolol tartrate 50 mg tablet 50 mg PO DAILY amlodipine 5 mg tablet 5 mg PO DAILY levothyroxine 88 mcg capsule 88 mcg PO DAILY trazodone 50 mg tablet 50 mg PO DAILY hydrochlorothiazide 25 mg tablet 25 mg PO DAILY (DME) nebulizers Mis See Rx Instructions .ROUTE Rx Instructions: As directed benzonatate 200 mg capsule 200 mg PO BID PRN (Reason: cough) 30 Days Qty: 30 0RF codeine-guaifenesin 10-100 mg/5 mL liquid 10 ml PO Q6H PRN (Reason: cough) 10 Days Qty: 300 0RF prednisone 20 mg tablet See Rx Instructions PO DAILY 10 Days Qty: 15 0RF Rx Instructions: PO daily; Take 2 tabs daily x 5 days, then 1 tablet daily x 5 days amoxicillin-pot clavulanate 875-125 mg tablet 1 tab PO BID 14 Days Qty: 28 0RF <STEPHEN Bryant - Last Filed: 10/29/22 18:31>
[2022-10-29 19:27] LABS: Influenza A PCR NEGATIVE (Negative); Influenza B PCR NEGATIVE (Negative); Resp Syncy Virus RNA Qual PCR NEGATIVE (Negative); SARS COV2 PCR INHOUSE NEGATIVE (Negative)
[2022-10-29 21:36] VITALS: BP 158/80; PULSE 71; RESP 21; TEMP 36.7; O2SAT 92
[2022-10-29 23:04] VITALS: BP 169/76; PULSE 69; RESP 17; TEMP 36.6; O2SAT 92
== END 2022-10-29 23:19 | disposition home or self-care (01) ==
PROVIDERS: Physician Assistant Medical; Emergency Provider Internal Medicine
DX: J47.9 Bronchiectasis, uncomplicated (principal); Z99.81 Dependence on supplemental oxygen; Z20.822 Contact with and (suspected) exposure to COVID-19; Z20.828 Contact with and (suspected) exposure to other viral communicable diseases; Z79.899 Other long term (current) drug therapy
CPT/HCPCS: 0241U; 36415; 71046; 80048; 85025; 99283; 99284

== ENCOUNTER → 2022-11-30 08:31 | Outpatient (BNVA) | payer MEDICARE, SELFPAY | PROVIDERS: PCP Internal Medicine; Visit Provider Hospitalist | DX: J44.9 Chronic obstructive pulmonary disease, unspecified (principal); J47.9 Bronchiectasis, uncomplicated; I26.99 Other pulmonary embolism without acute cor pulmonale; R09.02 Hypoxemia; R91.8 Other nonspecific abnormal finding of lung field; A31.9 Mycobacterial infection, unspecified; K76.89 Other specified diseases of liver | CPT/HCPCS: 99212 ==

== ENCOUNTER 2022-12-16 13:06 | Outpatient (REF) | payer MEDICARE, SELFPAY ==
--- NOTE | ~2022-12-16 | XR_ITS ---
EXAMINATION: XR CHEST CLINICAL INFORMATION: Hypoxemia. COMPARISON: 10/29/2022 chest radiographs, chest CT scan dated 06/03/2022. TECHNIQUE: 2 views of the chest were obtained. FINDINGS: Chronic interstitial changes including a calcified subpleural nodule at the right lung base and calcified granuloma in the left lower lung without significant change. There are no pleural effusions. The heart and mediastinal structures are unremarkable. XR/XR chest 2V IMPRESSION: Chronic interstitial changes and nodularity bilaterally demonstrating similar distribution and severity to previous studies including the most recent CT scan. No definitive acute abnormality.
[2022-12-16 14:31] LABS: MANUAL DIFF FLAG NO
[2022-12-16 15:03] LABS: Basophils Absolute Auto 0.1 X10*3/uL (0.0-0.2); Basophils Percent Auto 1.3 % (0-2); Eosinophils Absolute Auto 0.2 X10*3/uL (0.0-0.4); Eosinophils Percent Auto 3.2 % (0-4); Hematocrit 24.3 % (37.0-47.0); Hemoglobin 7.7 g/dl (12.0-16.0); Imm Gran Abs Auto 0.06 X10*3/uL (0.00-0.03); Imm Gran Pct Auto 0.9 % (0.0-0.4); Lymphocytes Absolute Auto 1.2 X10*3/uL (1.2-4.9); Lymphocytes Percent Auto 17.8 % (20-40); Mean Corpuscular HGB Conc 31.7 g/dl (31.0-35.0); Mean Corpuscular Hemoglobin 28.9 pg (27.0-33.0); Mean Corpuscular Volume 91.4 fL (80.0-98.0); Mean Platelet Volume 10.5 fL (9.4-12.3); Monocytes Absolute Auto 0.9 X10*3/uL (0.1-1.2); Monocytes Percent Auto 13.6 % (2-11); Neutrophils Absolute Auto 4.3 x10*3/uL (2.0-8.3); Neutrophils Percent Auto 63.2 % (45-73); Platelet Count 410 X10*3/uL (160-400); Red Blood Count 2.66 X10*6/uL (4.20-5.50); Red Cell Distribution Width 12.8 % (11.0-16.0); White Blood Count 6.9 X10*3/uL (4.8-10.8)
[2022-12-16 15:31] LABS: Anion Gap 11 (12-20); Blood Urea Nitrogen 18 mg/dL (9-16); Calcium 9.3 mg/dL (8.4-10.2); Carbon Dioxide 27 mmol/L (22-29); Chloride 105 mmol/L (96-108); Estimated Glomerular Filt Rate > 60; Glucose Random 138 mg/dL (60-115); Potassium 3.7 mmol/L (3.3-5.1); Sodium 139 mmol/L (135-145)
[2022-12-16 15:38] LABS: B Type Natriuretic Peptide 629 pg/mL (<100)
[2022-12-16 15:58] LABS: Troponin-I High Sensitivity < 2.7 ng/L (<3.5-17.0)
[2022-12-16 16:13] LABS: Erythrocyte Sedimentation Rate 14 MM/HR (0-20)
== END 2022-12-16 13:07 | disposition home or self-care (01) ==
LOC: HO.XRAY 13:06
PROVIDERS: PCP Internal Medicine; Visit Provider Hospitalist
DX: R07.9 Chest pain, unspecified (principal); R09.02 Hypoxemia; I26.99 Other pulmonary embolism without acute cor pulmonale; I50.9 Heart failure, unspecified; J44.9 Chronic obstructive pulmonary disease, unspecified; R91.8 Other nonspecific abnormal finding of lung field; A31.9 Mycobacterial infection, unspecified; K76.89 Other specified diseases of liver; R06.00 Dyspnea, unspecified
CPT/HCPCS: 36415; 71046; 80048; 83880; 84484; 85025; 85652; 99212

== ENCOUNTER → 2022-12-20 07:52 | Outpatient (BNV) | payer MEDICARE, SELFPAY | PROVIDERS: PCP Internal Medicine; Visit Provider Internal Medicine Medical Oncology | DX: D64.9 Anemia, unspecified (principal); I26.99 Other pulmonary embolism without acute cor pulmonale | CPT/HCPCS: 99204; 99213 ==

== ENCOUNTER 2022-12-20 13:31 | Outpatient (REF) | payer MEDICARE, SELFPAY ==
--- NOTE | ~2022-12-20 | US_ITS ---
EXAMINATION: US VENOUS ULTRASOUND WITH DOPPLER LOWER EXTREMITY, BILATERAL CLINICAL INFORMATION: Bilateral lower extremity edema, history of PE COMPARISON: None available. TECHNIQUE: Ultrasound of the deep veins is performed from the hip to the calf with compression sonography and color and pulse Doppler assessment. Spectral analysis with color-flow imaging is performed. FINDINGS: RIGHT: There is normal venous compression and respiratory variation and augmented flow. The visualized common femoral vein, superficial femoral vein, profunda femoral vein, popliteal vein, and the trifurcation region shows no evidence of deep venous thrombosis. There is no significant popliteal fossa cyst. LEFT: There is normal venous compression and respiratory variation and augmented flow. The visualized common femoral vein, superficial femoral vein, profunda femoral vein, popliteal vein, and the trifurcation region shows no evidence of deep venous thrombosis. There is no significant popliteal fossa cyst. If the patient's symptoms persist, followup ultrasound in 5 days 7 days might be of value to exclude proximal propagation from a non-visualized calf vein. US/US venous duplex LE BI IMPRESSION: No DVT demonstrated in the bilateral lower extremities.
--- NOTE | 2022-12-20 14:00 | CA_ITS ---
Transthoracic Echocardiogram Patient (Last, First, Middle): Karlene Coates D Gender: Female Date of : 1945 Age: 77 Procedure Date: 12/20/2022 Procedure Type: Transthoracic Echocardiogram Location: OP Height: 162.56 cm Weight: 61.24 kg BSA: 1.66 m2 Heart Rate: bpm BP: 151 / 70 mmHg Liquefaction And Regasification Helper: ALPA Referring MD: Bang Rocha MD Symptoms: I27.20 - Pulmonary hypertension, unspecified Study Quality: Adequate ECG Rhythm: Sinus Conclusions: - The left ventricular systolic function is normal. The calculated ejection fraction is 63% by biplane method. - No obvious valvular pathology seen on this study. - The right ventricular systolic pressure is 51 mmHg. Mild pulmonary hypertension is present. Findings Left Ventricle Normal left ventricular cavity size. There is mildly increased left ventricular wall thickness. The left ventricular systolic function is normal. The calculated ejection fraction is 63% by biplane method. There is no evidence of regional wall motion abnormalities. E/E prime ratio is >15, consistent with elevated filling pressures. Evidence suggests grade I (mild) diastolic dysfunction. LV peak GLS -22.4%. Right Ventricle Normal right ventricular cavity size and systolic function. Atria Both atria are normal in size. Interatrial shunt cannot be excluded. Possible aneurysmal atrial septum. Aortic Valve There is a normal trileaflet aortic valve. There is no aortic valve stenosis. There is no aortic valve regurgitation. Mitral Valve The mitral valve appears normal. There is mild mitral valve regurgitation. There is no mitral valve stenosis. Pulmonic Valve The pulmonic valve is likely normal. Tricuspid Valve There is mild tricuspid valve regurgitation. The right ventricular systolic pressure is 51 mmHg. Mild pulmonary hypertension is present. Great Vessels The asc aorta is normal in size. Venous The inferior vena cava is mildly dilated and collapses greater than 50% with inspiration. Pericardium/Pleural There is no evidence of pericardial effusion. Prior Study Comparison No prior study available for comparison. Recommendations, Care & Conclusions No obvious valvular pathology seen on this study. Measurements 2D Linear Measurements IVSd: 1.14 0.6-0.9/0.6-1.0 cm LVIDd: 3.79 3.9-5.3/4.2-5.9 cm LVIDd Index: 2.28 2.4-3.2/2.2-3.1 cm/m2 LVIDs: 2.77 2.0-3.6 cm LVPWd: 1.03 0.7-1.1 cm LA Diam: 3.30 2.7-3.8/3.0-4.0 cm LAIDs Index: 1.99 1.5-2.3 cm/m2 LV Mass: 163.56 67-162/88-224 g LV Mass Index: 98.53 43-95/49-115 g/m2 LVOT Diam: 1.90 3.0+(-)1.3 cm 2D Systolic Function EF 4C: 62.80 >55% EF 2C: 63.40 >55% EF BiP: 63.30 >55% Mitral Valve MV Pk E: 1.12 MV PK A: 1.22 MV Decel Time: 227.00 E/A: 0.90 E'Lateral: 6.74 E'Medial: 5.77 E/E' Med: 19.40 E/E' Lat: 16.60 PHT: 67.00 MVA PHT: 3.28 Decel [place]: 4.92 Aortic Valve AoV Pk Mitchell: 1.66 AoV Mn Mitchell: 1.17 AoV VTI: 0.39 AoV Pk Grad: 11.00 Aov Mn Grad: 6.00 GENE Cont.VTI: 1.83 LVOT LVOT Pk Mitchell: 1.03 LVOT Mn Mitchell: 0.75 LVOT VTI: 0.25 LVOT Pk Grad: 4.00 LVOT Mn Grad: 3.00 LVOT Diam: 1.90 LVOT Area: 2.84 Diastolic Function MV Pk E: 1.12 MV Pk A: 1.22 E/A: 0.90 E'Medial: 5.77 E/E' Med: 19.40 E' Laterial: 6.74 E/E' Lat: 16.60 Right Ventricle TAPSE (mm): 23.60 TVS' Mitchell: 11.00 Tricuspid Valve TR Pk Mitchell: 3.26 TR Pk Grad: 43.00 RA Press: 8.00 RVSP: 51.00 Great Vessels Aorta Sinus of Valsalva: 2.55 2.0-3.[address] [place]: 1.85 1.7-3.4 cm Ao Asc: 2.80 2.1-3.4 cm Updated in Other Vendor System with Status of Final Juan Almanzar MD electronically signed on 12/21/2022 12:10:52 PM with status of Final
== END 2022-12-20 13:32 | disposition home or self-care (01) ==
LOC: HO.US 13:31
PROVIDERS: PCP Internal Medicine; Visit Provider Hospitalist
DX: I26.99 Other pulmonary embolism without acute cor pulmonale (principal); I27.20 Pulmonary hypertension, unspecified; R60.0 Localized edema
CPT/HCPCS: 93306; 93356; 93970

== ENCOUNTER 2022-12-23 | Outpatient (REF) | payer MEDICARE, SELFPAY ==
[2022-12-25 07:51] LABS: OBS1 POSITIVE (NEGATIVE); OBS2 POSITIVE (NEGATIVE)
[2022-12-25 07:52] LABS: OBS Int Ctl Valid YES; OBS3 POSITIVE (NEGATIVE)
== END 2022-12-23 00:01 | disposition home or self-care (01) ==
LOC: HO.LNP
PROVIDERS: Visit Provider Internal Medicine Medical Oncology
DX: D64.9 Anemia, unspecified (principal)
CPT/HCPCS: 82270

== ENCOUNTER 2022-12-24 15:16 | Outpatient (REF) | payer MEDICARE, SELFPAY | END 2022-12-24 15:17 | disposition home or self-care (01) | LOC: HO.LNP 15:16 | PROVIDERS: Visit Provider Internal Medicine Medical Oncology | DX: Z13.89 Encounter for screening for other disorder (principal) ==

== ENCOUNTER → 2023-01-13 14:10 | Outpatient (BNVA) | payer MEDICARE, SELFPAY | PROVIDERS: PCP Internal Medicine; Visit Provider Hospitalist | DX: I27.20 Pulmonary hypertension, unspecified (principal); I26.99 Other pulmonary embolism without acute cor pulmonale; D64.9 Anemia, unspecified; J47.9 Bronchiectasis, uncomplicated; A31.9 Mycobacterial infection, unspecified; R91.8 Other nonspecific abnormal finding of lung field; R09.02 Hypoxemia; R06.00 Dyspnea, unspecified; Z79.01 Long term (current) use of anticoagulants | CPT/HCPCS: 99212 ==

== ENCOUNTER → 2023-02-18 08:02 | Outpatient (REF) | payer MEDICARE, SELFPAY ==
--- NOTE | ~2023-02-18 | NM_ITS ---
EXAMINATION: PULMONARY PERFUSION STUDY CLINICAL INFORMATION: Other pulmonary embolism without acute cor pulmonale COMPARISON: No previous lung scan is available for comparison. Radiographs of the chest dated 02/18/2023, the same date as this lung scan are available for comparison. CT scan of the chest dated 06/03/2022 is also available for comparison. TECHNIQUE: Following the intravenous administration of 1.0 mCi Tc-99m MAA an 8-view perfusion study was performed using a dual detector gamma scintillation camera. No ventilation images were obtained. FINDINGS: Perfusion images: Multiple segmental and subsegmental perfusion defects are present bilaterally. There is a segmental defect in the anterobasilar segment of the right lower lobe and multiple subsegmental defects are present bilaterally. The contemporaneous chest radiograph shows chronic interstitial changes and subcentimeter nodules which are stable from prior studies. Similar findings are present on the 06/03/[address] scan. NM/NM pul perfusion IMPRESSION: Intermediate probability of pulmonary embolism. These abnormalities may be due to acute or chronic pulmonary embolism superimposed on known interstitial lung disease. Ventilation images were not obtained, but it is unlikely that these would further differentiate acute or chronic pulmonary embolism from perfusion abnormalities due to extensive interstitial lung disease.
--- NOTE | ~2023-02-18 | XR_ITS ---
EXAMINATION: XR CHEST CLINICAL INFORMATION: Pulmonary embolus without cor pulmonale. COMPARISON: Chest radiograph 12/16/[address] chest 06/03/2022 and 10/29/2020. TECHNIQUE: 2 views of the chest were obtained. FINDINGS: Heart size upper limits of normal. Chronic interstitial changes are again noted, most prominent in the right upper lobe and left lower lobe. Again seen is a calcified left-sided granuloma. The right hemidiaphragm is tented anteriorly with an unchanged pleural-based anterior mass with calcifications, better demonstrated on 06/03/2022 CT scan (6:79). No acute infiltrates. No CHF. No pleural effusions. XR/XR chest 2V IMPRESSION: No acute intrathoracic disease. Chronic findings as described above. Stable right lower lobe pleural-based mass with calcifications.
== END ==
LOC: HO.NUCMED 08:02
PROVIDERS: PCP Internal Medicine; Visit Provider Hospitalist
DX: I26.99 Other pulmonary embolism without acute cor pulmonale (principal)
CPT/HCPCS: 71046; 78580; 99212; A9540

== ENCOUNTER 2023-02-18 09:12 | Outpatient (AMB) | payer MEDICARE, SELFPAY ==
[2023-02-18 09:13] VITALS: BP 128/60; PULSE 80; O2SAT 92; BMI 22.3
--- NOTE | 2023-02-18 09:13 | A.OFFVIS_ITS ---
Intake Vital Signs 02/18/23 09:13 Height 5 ft 4 in Weight 130 lb BMI 22.3 BP 128/60 Blood Pressure Location Lt brachial Position Sitting Pulse 80 Pulse Source Pulse Oximeter Pulse Oximetry (%) 92 Oxygen Delivery Method Room Air Intake Visit Reasons: [employer] Required: No Allergies Cipro Allergy (Severe, Uncoded 02/18/23 09:16) Rash HPI HPI Comments History of Present Illness Details The patient is a 78-year-old woman with known history of bronchiectasis, COPD and also nontuberculous mycobacterial infection. She had been treated in the past for this condition. 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 Unfortunately she cannot tolerate quinolones nor THOR due to adverse reactions. She has been doing very well in the meantime. She continues to have shortness of breath with activity mild in severity. Also got worse when she did go up to the high altitudes. Also had productive cough off and on. She continues to use the flutter valve. She has also pulmonary nodules. She had a last CT scan of the chest back in March 2018 that we personally reviewed demonstrating stable pulmonary no 11/09/2021 the patient is here for a pulmonary follow-up visit. Overall the patient has been doing well. She has been participating in pulmonary rehab and has been staying active. She does use her oxygen with activity. This also has been helpful. She also continue with severe chest physical therapy. She does use a percussion vest and this may be affecting her back possibly resulting in some back pain. Patient also has evidence of significant scoliosis. She did undergo pulmonary function studies which was personally by me. It appears that her FVC, FEV1 and diffusing capacity are trending a little bit better. However, her total lung capacity slightly decreased although not significant. This may be multifactorial. But it may to some degree be due to her musculoskeletal issues. I will have her be evaluated by Physical therapy to see if they can provide her with some relief as far as her scoliosis and potentially lung expansion. However, she continues the back pain she also may have to decrease the frequency on her percussion vest which could also be contributing to the pain. In the meantime she will continue participating in pulmonary rehabilitation. No changes on the medications at this time. She did have an EKG sometime in March and she did follow-up with cardiology after that. Will plan to repeat an EKG sometime in the fall 2021. 05/17/2022 the patient is here for pulmonary follow-up visit. Overall she continues to do well from a respiratory status. She continues on the azithromycin. She is using that 3 times a week for the treatment of mycobacterial lung disease. Patient understands that using medication by itself can result in resistance. She also continues to use the hypertonic saline for chest physical therapy. She continues to participate in pulmonary rehab which has been very effective beneficial for her. The only issue is that she still has a persistent cough. The cough for the most part is nonproductive in nature. Sometimes when she starts coughing she has a hard time stopping in therefore she has a hard time going to places like muslim or the gatherings where she becomes conscientious about her cough. We talked about different cough suppressants use. Tessalon Perles may be effective however the probably will not be covered. She can also use cough medicine with codeine also in certain occasions where she is at home and not driving which she can take a small dose to help with suppress the cough. The patient has had also some pleuritic chest discomfort. Currently she she states that her symptoms have resolved. If her symptoms persist she is to get a chest x-ray. In the meantime she did have a CT scan of the chest back in June 2021 demonstrating pulmonary nodules and bronchiectatic changes. She is scheduled to have a repeat CT scan June of this year. During the visit the patient did have an EKG done demonstrating normal QTC. Although, her EKG is abnormal with a left bundle branch block and left axis deviation. I did give her a copy of the EKG. This left bundle branch block has been well documented in the past. 08/02/2022 the patient is here for a pulmonary follow-up visit. The patient has not been feeling well now for the last several months. However, she has further declining the last several weeks. Started developing worsening cough with chest congestion. Addition to increasing shortness of breath. She denies any fevers or chills. She denies any sick contacts. The phlegm is thicker and darker in color. Usually yellowish green. She has been taking the azithromycin 3 times a week and was working well for her. She did have a CT scan of the chest sometime in May 2022 which demonstrated the underlying bronchiectatic changes in the bronchiolitis. Relatively unchanged. In the office we were able to give her neb treatment with Xopenex and hypertonic saline. She was able to produce a sputum that was sent for culture and also AFB. In the meantime the patient does have some increased wheezing on examination so therefore will start her on a course of prednisone. She is reluctant to take high doses therefore I gave a small prednisone taper. She has responded well to Augmentin in the past therefore she will also start that. She has had history of Pseudomonas so therefore the patient understands that Pseudomonas would only be treated with quinolones and unfortunately she had a hard time tolerating quinolones in the past. Other options to treat Pseudomonas would be inhaled tobramycin or IV antibiotics if she were to worsen further. For now will just have to await the results of the culture. In meantime she is going to start the antibiotic therapy. 09/20/2022 the patient is here for a pulmonary follow-up visit. Overall she is feeling a lot better. She did complete the prednisone and also the Augmentin. Her sputum culture was positive for Haemophilus influenzae which was penicillin resistant. In addition to that her sputum culture was positive for mycobacterium speciaes. The she has been on the azithromycin 3 times a week. Therefore, explained to her that we are waiting for sensitivities. Clinically the patient is doing better so which is weight she get back the results. Based on the result will talk about any a mentation of the therapy that needs to be done in order to avoid progression of disease. The patient also has complaint of intermittent right-sided chest discomfort. Right now she feels better. She does not have it all the time. It is not reproducible. I did give her chest x- ray order for her to have it x-ray if her symptoms worsen or persist. The patient otherwise feels well and she will monitor closely. Her last CT scan was back in the fall 2021. Therefore will hopefully hold off to repeating the CAT scan of that time. I am hoping to be able to discuss this insipidus with her and decide on management before repeating the imaging. 11/30/2022 the patient is here for a pulmonary hospital follow-up visit. The patient recently came back from [place]. She was noted to have more shortness of breath and hypoxia. She required additional oxygen. Check call the office initially and our nurse triage recommend that she go to the ER. She did go to the ER here although she was subsequently discharged. Unclear the workup she had. She continued having difficulties with breathing. A week later she called again to the office and again will concerned because of the acute on chronic hypoxic respiratory failure airway recommended this time that she go to the [facility] ER. She went to the ER there quickly had a CT scan of the chest PE protocol demonstrating bilateral basilar pulmonary emboli. The patient also had extensive treating budding bronchiectasis due to mycobacterial disease. Therefore, she was started on Eliquis and was subsequently discharged. She the patient did not have an echocardiogram and did not have lower extremity Dopplers for reason. Patient feels a little better. Although she is still short of breath with activity. Kzbb-[id number] severity. She has wondered if she is going to be able to get back to her baseline. The patient did have mo derate amount of blood clot burden. Explained to her that this will take a couple months her to clear. In the meantime we need to address her mycobacterial disease. She did culture different organism still sensitive to the azithromycin. I am concerned that monotherapy will result in increased resistance specially with the exposure to other mycobacterial disease. The patient is willing to start ethambutol. She can not started 3 times a week and then increase the azithromycin to daily. If the patient can tolerate that regimen then she can increase the ethambutol to daily as well. On the combination therapy we will plan to repeat her sputum in a couple months. Hopefully the cultures come back negative and we can decrease her regimen again to 3 times a week. In regards the blood clots the patient will have to get an echocardiogram and also a V/Q scan in a couple months to make sure there is complete clearance of her clot burden. She will continue with the Eliquis twice a day as prescribed at this time. 12/16/2022 the patient is here for sick visit. She has been experiencing worsening dyspnea on exertion for the last 1-2 weeks. Progressively getting worse. Denies any significant wheezing are productive cough. Denies any chest pains. He is mainly progressive dyspnea with any exertion. She has been using her oxygen more often. The patient did go for chest x-ray demonstrating his chronic airway disease. No evidence of any active disease. On examination she did not have any worsening wheezing or rhonchi. She has been taking her anticoagulation for the recent blood clots and that she has been taking with good adherence. She has not noticed any red blood in her urine or any black stools or any blood in the stools. The patient has been having increasing lower extremity edema. Also, reviewing her x-ray I do appreciate some haziness suggesting the possibility of increasing vascular congestion. Therefore you treatment with diuretics will be reasonable. The patient also undergo blood work. 01/13/2023 the patient is here for a pulmonary follow-up visit. Overall she is doing about the same. Still complaining of dyspnea on exertion. Her last hemoglobin was 7.5. She does have an appointment with Hematology today. The patient does have very low iron levels. It also very low ferritin level. This is likely aggravated by the starting of the anticoagulation. The patient will need to have this further evaluated. The anticoagulation she should continue likely indefinitely if she can tolerate it especially there was no significant bleeding. The patient did have an unprovoked event. She does have a GI doctor that she sees in the past and I do believe that she needs to go back for re- evaluation. I will put in referral at this time. The patient also is complaining of lower extremity swelling. She did respond well to the Lasix. She takes additional Lasix at this time. She also had an echocardiogram that was personally reviewed. The patient does have mild pulmonary hypertension that is likely contributing to the edema although not completely. She has also taken a calcium channel rosio that may also be contributing as well. The patient will take the Lasix for 3 days and movement in a low-sodium diet and will reassess. If she continues to have swelling she will call as far as the mycobacterial disease the patient is tolerating the macrolide and ethambutol on a daily basis. Her blood work was reassuring. She will continue taking the daily dose at this time since she can not tolerate it. Her cough is overall better new lungs are clear. Her CT scan did demonstrate significant tree in budding and bronchiectasis. She will need a repeat CT scan in the near future. 02/18/2023 the patient is here for AA follow-up visit. Patient continues to have dyspnea on exertion. Moderate severity. The oxygen is partially helpful. She has been on all her respiratory therapy. The patient did undergo a V/Q scan in order to follow-up with her pulmonary emboli. I did get a critical call with the V/Q scan findings therefore I had her come in so we can discuss it. It appears that the V/Q scan still shows V/Q mismatches in the areas where she was documented to have blood clots back in October. Therefore the patient has not had significant improvement of the clot brought in after more than 3 months of therapy with Eliquis. Therefore, she is not responding to the anticoagulation. She did have an echocardiogram also in December demonstrating pulmonary hypertension likely from the result of the chronic thromboembolic disease. In the meantime she has been dealing with the issue with the anemia. She will be evaluated by GI soon regarding potential endoscopy to assess for any occult bleeding in view of the significant anemia while on the Eliquis. We did talk about alternative therapies for anticoagulation. Coumadin will be difficult in view of her antibiotic use for the mycobacterial disease. We also talked but injectables including Lovenox and doubt the parent. I did speak briefly with Hematology and they did agree that does to injectables would be reasonable. The dalteparin would be easier as it is only once a day. Fondaparinux is also as good option. I will make a referral to the [facility] [place] disease clinic for furter evaluation. [facility] Medical History (Updated 02/20/23 @ 20:49 by Bang Rocha MD) Abnormal EKG Anemia Anemia aplastic aregenerative Asthma Asthma-COPD overlap syndrome Back pain of thoracolumbar region Bronchiectasis Chest pain Chronic thromboembolic disease D-dimer, elevated Dyspnea Hypoxia Mycobacterial disease Nodule on liver Pulmonary emboli Pulmonary hypertension Pulmonary nodules Social History Household Members: Spouse Household Members Other:: Fili Patient Tobacco Use Status: Never used Tobacco Second Hand Smoke Exposure: No service: No Review of Systems Const Denies chills, Denies fever(s) and Denies night sweats ENT Denies change in voice, Denies lip swelling, Denies mouth pain, Reports nasal congestion, Reports nasal discharge and Denies tongue swelling Card Denies chest pain, Reports leg edema, Reports dyspnea and Reports dyspnea on exertion Resp Denies change in phlegm color, Denies chest congestion, Reports cough, Denies hemoptysis, Reports excessive phlegm production, Denies pain on inspiration, Denies pain with cough, Reports dyspnea, Reports dyspnea on exertion and Denies wheezing GI Denies abdominal pain Musc Reports back pain Neuro Denies Neuro-related abnormal movements Psych Denies no additional complaints Jake/Lymph Denies easy bleeding and Denies lymphadenopathy Aller/Immun Denies lip swelling, Denies tongue swelling and Denies wheezing Physical Exam Vital Signs: Last Vital Signs Pulse 80 02/18/23 09:13 BP 128/60 02/18/23 09:13 Pulse Ox 92 02/18/23 09:13 Oxygen Delivery Method Room Air 02/18/23 09:13 BMI result Body Mass Index 22.3 Const General: alert Neck Neck: Yes normal visual inspection, Yes full ROM and Yes no lymphadenopathy Chest Chest palpation & inspection: normal inspection of the chest Resp Auscultation: no crackles, no rales, no rhonchi, no wheezes and diminished lung sounds Cardio Rate: regular rate Rhythm: regular rhythm Heart sounds: S1 normal heart sound present and S2 normal heart sound present GI Palpation (GI): Soft to palpation and nontender Auscultation: normal bowel sounds Skin General skin exam: rashes and/or lesions noted Extrem General: No clubbing, No cyanosis and Yes edema Results Reviewed Results Reviewed: [address] [address] Nuclear Medicine Report Signed Patient: Karlene Coates MR#: [id number] : 1945 Acct:[id number] Age/Sex: 78 / F ADM Date: 02/18/23 Loc: [facility] Attending Dr: Bang Rocha MD Ordering Physician: Bang Rocha MD Date of Service: 02/18/23 Procedure(s): NM pul perfusion Accession Number(s): [id number] cc: Bang Rocha MD~ EXAMINATION: PULMONARY PERFUSION STUDY CLINICAL INFORMATION: Other pulmonary embolism without acute cor pulmonale COMPARISON: No previous lung scan is available for comparison. Radiographs of the chest dated 02/18/2023, the same date as this lung scan are available for comparison. CT scan of the chest dated 06/03/2022 is also available for comparison. TECHNIQUE: Following the intravenous administration of 1.0 mCi Tc-99m MAA an 8-view perfusion study was performed using a dual detector gamma scintillation camera. No ventilation images were obtained. FINDINGS: Perfusion images: Multiple segmental and subsegmental perfusion defects are present bilaterally. There is a segmental defect in the anterobasilar segment of the right lower lobe and multiple subsegmental defects are present bilaterally. The contemporaneous chest radiograph shows chronic interstitial changes and subcentimeter nodules which are stable from prior studies. Similar findings are present on the 06/03/[address] scan. NM/NM pul perfusion IMPRESSION: Intermediate probability of pulmonary embolism. These abnormalities may be due to acute or chronic pulmonary embolism superimposed on known interstitial lung disease. Ventilation images were not obtained, but it is unlikely that these would further differentiate acute or chronic pulmonary embolism from perfusion abnormalities due to extensive interstitial lung disease. ? Dictated By: Jose Crouch MD Signed By: <Electronically signed by Jose Crouch MD in OV> 02/18/2338 DD/ Assessment & Plan Assessment & Plan (1) Pulmonary hypertension: Code(s): I27.20 - Pulmonary hypertension, unspecified (2) Pulmonary embolism: Code(s): I26.99 - Other pulmonary embolism without acute cor pulmonale (3) Chronic thromboembolic disease: Code(s): I74.9 - Embolism and thrombosis of unspecified artery (4) Dyspnea: Code(s): R06.00 - Dyspnea, unspecified (5) Mycobacterial disease: Code(s): A31.9 - Mycobacterial infection, unspecified (6) Bronchiectasis: Code(s): J47.9 - Bronchiectasis, uncomplicated (7) Pulmonary nodules: Code(s): R91.8 - Other nonspecific abnormal finding of lung field Plan The patient seems to be failing Eliquis based on the persistent findings on the VQ, abnormal ECHO and persistent dyspnea. Not a good Coumadin candidate due to her Abx use for her chrmonic lung infection. Would benefit from assistance for hematology. LMWH versus Factor 1o inhibitor. REC: Bloodwork Switch anticoagulation to LMWH, could also consider Fondaparinux. Ideally, should have her GI evaluation before switching her anticoagulation. referral to [facility] [place] [place] Continue Azithromycin/Ethambutol daily Awaiting GI eval for the anemia. Hematology eval regarding the lack of response to Eliquis. Will start the process to look for alternative medication approval Continue oxygen supplementation Would recommend holding off on the pulmonary rehab while evaluationg these issues Orders: Orders Ferritin 02/18/23 I26.99 - Other pulmonary embolism without acute cor pulmonale, I27.20 - Pulmonary hypertension, unspecified IRON PROFILE 02/18/23 I26.99 - Other pulmonary embolism without acute cor pul monale, I27.20 - Pulmonary hypertension, unspecified Complete Blood Count Auto Diff 02/18/23 I26.99 - Other pulmonary embolism without acute cor pulmonale, I27.20 - Pulmonary hypertension, unspecified Basic Metabolic Panel 02/18/23 I26.99 - Other pulmonary embolism without acute cor pulmonale, I27.20 - Pulmonary hypertension, unspecified Liver Panel 02/18/23 I26.99 - Other pulmonary embolism without acute cor pulmonale, I27.20 - Pulmonary hypertension, unspecified PT, INR - Anti Coag 02/18/23 I26.99 - Other pulmonary embolism without acute cor pulmonale, I27.20 - Pulmonary hypertension, unspecified Referrals Pulmonology Referral I26.99 - Other pulmonary embolism without acute cor pulmonale, I27.20 - Pulmonary hypertension, unspecified, I74.9 - Embolism and thrombosis of unspecified artery Medications: New dalteparin (porcine) 12,500 units (0.5 mL) subcut DAILY 30 days 15 mL 11RF Coding Level of Care Code Est Pt Level 5 (22039) Diagnoses Pulmonary hypertension I27.20 Pulmonary embolism I26.99 Chronic thromboembolic disease I74.9 Dyspnea R06.00 Mycobacterial disease A31.9 Bronchiectasis J47.9 Pulmonary nodules R91.8 Time Spent (min) 60
== END 2023-02-18 09:41 | disposition home or self-care (01) ==
PROVIDERS: PCP Internal Medicine; Visit Provider Hospitalist
DX: I27.20 Pulmonary hypertension, unspecified (principal); I26.99 Other pulmonary embolism without acute cor pulmonale; I74.9 Embolism and thrombosis of unspecified artery; R06.00 Dyspnea, unspecified; A31.9 Mycobacterial infection, unspecified; J47.9 Bronchiectasis, uncomplicated; R91.8 Other nonspecific abnormal finding of lung field
CPT/HCPCS: 99215

== ENCOUNTER 2023-03-17 10:26 | Outpatient (AMB) | payer MEDICARE, SELFPAY ==
[2023-03-17 10:34] VITALS: BP 128/60; PULSE 70; O2SAT 96; BMI 22.3
--- NOTE | 2023-03-17 10:34 | A.OFFVIS_ITS ---
Intake Vital Signs 03/17/23 10:34 Height 5 ft 4 in Weight 130 lb BMI 22.3 BP 128/60 Blood Pressure Location Lt brachial Position Sitting Pulse 70 Pulse Source Pulse Oximeter Pulse Oximetry (%) 96 Oxygen Delivery Method Room Air Intake Visit Reasons: PE [employer] Required: No Allergies Cipro Allergy (Severe, Uncoded 03/17/23 10:37) Rash HPI HPI Comments History of Present Illness Details The patient is a 78-year-old woman with known history of bronchiectasis, COPD and also nontuberculous mycobacterial infection. She had been treated in the past for this condition. 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 Unfortunately she cannot tolerate quinolones nor THOR due to adverse reactions. She has been doing very well in the meantime. She continues to have shortness of breath with activity mild in severity. Also got worse when she did go up to the high altitudes. Also had productive cough off and on. She continues to use the flutter valve. She has also pulmonary nodules. She had a last CT scan of the chest back in March 2018 that we personally reviewed demonstrating stable pulmonary no 11/09/2021 the patient is here for a pulmonary follow-up visit. Overall the patient has been doing well. She has been participating in pulmonary rehab and has been staying active. She does use her oxygen with activity. This also has been helpful. She also continue with severe chest physical therapy. She does use a percussion vest and this may be affecting her back possibly resulting in some back pain. Patient also has evidence of significant scoliosis. She did undergo pulmonary function studies which was personally by me. It appears that her FVC, FEV1 and diffusing capacity are trending a little bit better. However, her total lung capacity slightly decreased although not significant. This may be multifactorial. But it may to some degree be due to her musculoskeletal issues. I will have her be evaluated by Physical therapy to see if they can provide her with some relief as far as her scoliosis and potentially lung expansion. However, she continues the back pain she also may have to decrease the frequency on her percussion vest which could also be contributing to the pain. In the meantime she will continue participating in pulmonary rehabilitation. No changes on the medications at this time. She did have an EKG sometime in March and she did follow-up with cardiology after that. Will plan to repeat an EKG sometime in the fall 2021. 05/17/2022 the patient is here for pulmonary follow-up visit. Overall she continues to do well from a respiratory status. She continues on the azithromycin. She is using that 3 times a week for the treatment of mycobacterial lung disease. Patient understands that using medication by itself can result in resistance. She also continues to use the hypertonic saline for chest physical therapy. She continues to participate in pulmonary rehab which has been very effective beneficial for her. The only issue is that she still has a persistent cough. The cough for the most part is nonproductive in nature. Sometimes when she starts coughing she has a hard time stopping in therefore she has a hard time going to places like pentecostalism or the gatherings where she becomes conscientious about her cough. We talked about different cough suppressants use. Tessalon Perles may be effective however the probably will not be covered. She can also use cough medicine with codeine also in certain occasions where she is at home and not driving which she can take a small dose to help with suppress the cough. The patient has had also some pleuritic chest discomfort. Currently she she states that her symptoms have resolved. If her symptoms persist she is to get a chest x-ray. In the meantime she did have a CT scan of the chest back in June 2021 demonstrating pulmonary nodules and bronchiectatic changes. She is scheduled to have a repeat CT scan June of this year. During the visit the patient did have an EKG done demonstrating normal QTC. Although, her EKG is abnormal with a left bundle branch block and left axis deviation. I did give her a copy of the EKG. This left bundle branch block has been well documented in the past. 08/02/2022 the patient is here for a pulmonary follow-up visit. The patient has not been feeling well now for the last several months. However, she has further declining the last several weeks. Started developing worsening cough with chest congestion. Addition to increasing shortness of breath. She denies any fevers or chills. She denies any sick contacts. The phlegm is thicker and darker in color. Usually yellowish green. She has been taking the azithromycin 3 times a week and was working well for her. She did have a CT scan of the chest sometime in May 2022 which demonstrated the underlying bronchiectatic changes in the bronchiolitis. Relatively unchanged. In the office we were able to give her neb treatment with Xopenex and hypertonic saline. She was able to produce a sputum that was sent for culture and also AFB. In the meantime the patient does have some increased wheezing on examination so therefore will start her on a course of prednisone. She is reluctant to take high doses therefore I gave a small prednisone taper. She has responded well to Augmentin in the past therefore she will also start that. She has had history of Pseudomonas so therefore the patient understands that Pseudomonas would only be treated with quinolones and unfortunately she had a hard time tolerating quinolones in the past. Other options to treat Pseudomonas would be inhaled tobramycin or IV antibiotics if she were to worsen further. For now will just have to await the results of the culture. In meantime she is going to start the antibiotic therapy. 09/20/2022 the patient is here for a pulmonary follow-up visit. Overall she is feeling a lot better. She did complete the prednisone and also the Augmentin. Her sputum culture was positive for Haemophilus influenzae which was penicillin resistant. In addition to that her sputum culture was positive for mycobacterium speciaes. The she has been on the azithromycin 3 times a week. Therefore, explained to her that we are waiting for sensitivities. Clinically the patient is doing better so which is weight she get back the results. Based on the result will talk about any a mentation of the therapy that needs to be done in order to avoid progression of disease. The patient also has complaint of intermittent right-sided chest discomfort. Right now she feels better. She does not have it all the time. It is not reproducible. I did give her chest x- ray order for her to have it x-ray if her symptoms worsen or persist. The patient otherwise feels well and she will monitor closely. Her last CT scan was back in the fall 2021. Therefore will hopefully hold off to repeating the CAT scan of that time. I am hoping to be able to discuss this insipidus with her and decide on management before repeating the imaging. 11/30/2022 the patient is here for a pulmonary hospital follow-up visit. The patient recently came back from [place]. She was noted to have more shortness of breath and hypoxia. She required additional oxygen. Check call the office initially and our nurse triage recommend that she go to the ER. She did go to the ER here although she was subsequently discharged. Unclear the workup she had. She continued having difficulties with breathing. A week later she called again to the office and again will concerned because of the acute on chronic hypoxic respiratory failure airway recommended this time that she go to the [facility] ER. She went to the ER there quickly had a CT scan of the chest PE protocol demonstrating bilateral basilar pulmonary emboli. The patient also had extensive treating budding bronchiectasis due to mycobacterial disease. Therefore, she was started on Eliquis and was subsequently discharged. She the patient did not have an echocardiogram and did not have lower extremity Dopplers for reason. Patient feels a little better. Although she is still short of breath with activity. [id number] severity. She has wondered if she is going to be able to get back to her baseline. The patient did have mo derate amount of blood clot burden. Explained to her that this will take a couple months her to clear. In the meantime we need to address her mycobacterial disease. She did culture different organism still sensitive to the azithromycin. I am concerned that monotherapy will result in increased resistance specially with the exposure to other mycobacterial disease. The patient is willing to start ethambutol. She can not started 3 times a week and then increase the azithromycin to daily. If the patient can tolerate that regimen then she can increase the ethambutol to daily as well. On the combination therapy we will plan to repeat her sputum in a couple months. Hopefully the cultures come back negative and we can decrease her regimen again to 3 times a week. In regards the blood clots the patient will have to get an echocardiogram and also a V/Q scan in a couple months to make sure there is complete clearance of her clot burden. She will continue with the Eliquis twice a day as prescribed at this time. 12/16/2022 the patient is here for sick visit. She has been experiencing worsening dyspnea on exertion for the last 1-2 weeks. Progressively getting worse. Denies any significant wheezing are productive cough. Denies any chest pains. He is mainly progressive dyspnea with any exertion. She has been using her oxygen more often. The patient did go for chest x-ray demonstrating his chronic airway disease. No evidence of any active disease. On examination she did not have any worsening wheezing or rhonchi. She has been taking her anticoagulation for the recent blood clots and that she has been taking with good adherence. She has not noticed any red blood in her urine or any black stools or any blood in the stools. The patient has been having increasing lower extremity edema. Also, reviewing her x-ray I do appreciate some haziness suggesting the possibility of increasing vascular congestion. Therefore you treatment with diuretics will be reasonable. The patient also undergo blood work. 01/13/2023 the patient is here for a pulmonary follow-up visit. Overall she is doing about the same. Still complaining of dyspnea on exertion. Her last hemoglobin was 7.5. She does have an appointment with Hematology today. The patient does have very low iron levels. It also very low ferritin level. This is likely aggravated by the starting of the anticoagulation. The patient will need to have this further evaluated. The anticoagulation she should continue likely indefinitely if she can tolerate it especially there was no significant bleeding. The patient did have an unprovoked event. She does have a GI doctor that she sees in the past and I do believe that she needs to go back for re- evaluation. I will put in referral at this time. The patient also is complaining of lower extremity swelling. She did respond well to the Lasix. She takes additional Lasix at this time. She also had an echocardiogram that was personally reviewed. The patient does have mild pulmonary hypertension that is likely contributing to the edema although not completely. She has also taken a calcium channel rosio that may also be contributing as well. The patient will take the Lasix for 3 days and movement in a low-sodium diet and will reassess. If she continues to have swelling she will call as far as the mycobacterial disease the patient is tolerating the macrolide and ethambutol on a daily basis. Her blood work was reassuring. She will continue taking the daily dose at this time since she can not tolerate it. Her cough is overall better new lungs are clear. Her CT scan did demonstrate significant tree in budding and bronchiectasis. She will need a repeat CT scan in the near future. 02/18/2023 the patient is here for AA follow-up visit. Patient continues to have dyspnea on exertion. Moderate severity. The oxygen is partially helpful. She has been on all her respiratory therapy. The patient did undergo a V/Q scan in order to follow-up with her pulmonary emboli. I did get a critical call with the V/Q scan findings therefore I had her come in so we can discuss it. It appears that the V/Q scan still shows V/Q mismatches in the areas where she was documented to have blood clots back in October. Therefore the patient has not had significant improvement of the clot brought in after more than 3 months of therapy with Eliquis. Therefore, she is not responding to the anticoagulation. She did have an echocardiogram also in December demonstrating pulmonary hypertension likely from the result of the chronic thromboembolic disease. In the meantime she has been dealing with the issue with the anemia. She will be evaluated by GI soon regarding potential endoscopy to assess for any occult bleeding in view of the significant anemia while on the Eliquis. We did talk about alternative therapies for anticoagulation. Coumadin will be difficult in view of her antibiotic use for the mycobacterial disease. We also talked but injectables including Lovenox and doubt the parent. I did speak briefly with Hematology and they did agree that does to injectables would be reasonable. The dalteparin would be easier as it is only once a day. Fondaparinux is also as good option. I will make a referral to the [facility] chronic thrombo-embolic disease clinic for furter evaluation. 03/17/2023 the patient is here for a pulmonary follow-up visit. She continues to have significant dyspnea on exertion. Has a hard time doing any activities outside of the house causing her to have significant fatigue the next day. She is having hard time. Recently was evaluated by Hematology. It was noted that hemoglobin dropped from 9.9-9.1. Ferritin level continues to be low even on iron supplementation. Not she is scheduled to undergo IV iron infusions. In addition to that she is scheduled for her endoscopy colonoscopy on Tuesday. I did recommend she can talk to her chef about a capsule endoscopy if nothing is found on her studies. We also again talked about her abnormal V/Q scan. the results were suggestive of the possibility of acute or chronic clot. Difficult to differentiate since a did not have the CTA available. I had looked at the CTA and felt strongly that there were all chronic clots. Although still suggesting that she is failing Eliquis. In view of the positive of acute on chronic clots will request a CTA to better address the abnormal V/Q scan findings. Also based on the fact the patient continues to be symptomatic. we did talk about the importance of considering a different anticoagulation agent. However, will have to wait until after she is further evaluated for the anemia as additional blood thinners may be potential problematic if they worsen her anemia. We have referred her to [place] to the Pulmonary hypertension Clinic based on the fact that she does have evidence of chronic thromboembolic disease resulting in pulmonary hypertension. will wait to see if she is consider. One option will be to consider vasodilators therapy for the patient to help her with the pulmonary hypertension. 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 She also continues use her oxygen. She finds that she is using her oxygen more often. [facility] Medical History (Updated 03/14/23 @ 15:24 by Charles Burton MD) Abnormal EKG Anemia Anemia aplastic aregenerative Asthma Asthma-COPD overlap syndrome Back pain of thoracolumbar region Bronchiectasis Chest pain Chronic thromboembolic disease D-dimer, elevated Dyspnea Hypoxia Mycobacterial disease Nodule on liver Pulmonary emboli Pulmonary hypertension Pulmonary nodules Social History Household Members: Spouse Household Members Other:: Fili Patient Tobacco Use Status: Never used Tobacco Second Hand Smoke Exposure: No service: No Review of Systems Const Denies chills, Reports fatigue, Denies fever(s), Reports lethargy and Denies night sweats ENT Denies change in voice, Denies lip swelling, Denies mouth pain, Reports nasal congestion, Reports nasal discharge and Denies tongue swelling Card Denies chest pain, Reports leg edema, Reports dyspnea and Reports dyspnea on exertion Resp Denies change in phlegm color, Denies chest congestion, Reports cough, Denies hemoptysis, Reports excessive phlegm production, Denies pain on inspiration, Denies pain with cough, Reports dyspnea, Reports dyspnea on exertion and Denies wheezing GI Denies abdominal pain Musc Reports back pain Neuro Denies Neuro-related abnormal movements Psych Denies no additional complaints Endo Reports fatigue Jake/Lymph Denies easy bleeding and Denies lymphadenopathy Aller/Immun Denies lip swelling, Denies tongue swelling and Denies wheezing Physical Exam Vital Signs: Last Vital Signs Pulse 70 03/17/23 10:34 BP 128/60 03/17/23 10:34 Pulse Ox 96 03/17/23 10:34 Oxygen Delivery Method Room Air 03/17/23 10:34 BMI result Body Mass Index 22.3 Const General: alert Neck Neck: Yes normal visual inspection, Yes full ROM and Yes no lymphadenopathy Chest Chest palpation & inspection: normal inspection of the chest Resp Auscultation: no crackles, no rales, no rhonchi, no wheezes and diminished lung sounds Cardio Rate: regular rate Rhythm: regular rhythm Heart sounds: S1 normal heart sound present and S2 normal heart sound present GI Palpation (GI): Soft to palpation and nontender Auscultation: normal bowel sounds Skin General skin exam: rashes and/or lesions noted Extrem General: No clubbing, No cyanosis and Yes edema Assessment & Plan Assessment & Plan (1) Pulmonary hypertension: Code(s): I27.20 - Pulmonary hypertension, unspecified (2) Pulmonary embolism: Code(s): I26.99 - Other pulmonary embolism without acute cor pulmonale (3) Chronic thromboembolic disease: Code(s): I74.9 - Embolism and thrombosis of unspecified artery (4) Dyspnea: Code(s): R06.00 - Dyspnea, unspecified (5) Mycobacterial disease: Code(s): A31.9 - Mycobacterial infection, unspecified (6) Bronchiectasis: Code(s): J47.9 - Bronchiectasis, uncomplicated (7) Pulmonary nodules: Code(s): R91.8 - Other nonspecific abnormal finding of lung field (8) Anemia: Code(s): D64.9 - Anemia, unspecified Plan CTA to better address the abnormal VQ and her on going symptoms referral to [facility] CTED clinic pending Continue Azithromycin/Ethambutol daily Awaiting GI eval for the anemia. EGD/colonoscopy Tuesday. ?capsule enteroscopy Hematology following, IV Iron x 2 Continue oxygen supplementation Would recommend holding off on the pulmonary rehab while evaluationg these issues Orders: Orders CT angio chest PE protocol Today I26.99 - Other pulmonary embolism without acute cor pulmonale Medications: Discontinued ferrous sulfate 325 mg PO BID 60 tabs 5RF Coding Level of Care Code Est Pt Level 5 (96735) Diagnoses Pulmonary hypertension I27.20 Pulmonary embolism I26.99 Chronic thromboembolic disease I74.9 Dyspnea R06.00 Mycobacterial disease A31.9 Bronchiectasis J47.9 Pulmonary nodules R91.8 Anemia D64.9 Time Spent (min) 60
== END 2023-03-17 11:11 | disposition home or self-care (01) ==
PROVIDERS: PCP Internal Medicine; Visit Provider Hospitalist
DX: I26.99 Other pulmonary embolism without acute cor pulmonale (principal); J47.9 Bronchiectasis, uncomplicated; R91.8 Other nonspecific abnormal finding of lung field; I27.20 Pulmonary hypertension, unspecified; A31.9 Mycobacterial infection, unspecified; I74.9 Embolism and thrombosis of unspecified artery
CPT/HCPCS: 99215

== ENCOUNTER → 2023-03-17 10:26 | Outpatient (BNVA) | payer MEDICARE, SELFPAY | PROVIDERS: PCP Internal Medicine; Visit Provider Hospitalist | DX: I26.99 Other pulmonary embolism without acute cor pulmonale (principal); I27.20 Pulmonary hypertension, unspecified; I74.9 Embolism and thrombosis of unspecified artery; R06.00 Dyspnea, unspecified; A31.9 Mycobacterial infection, unspecified; J47.9 Bronchiectasis, uncomplicated; R91.8 Other nonspecific abnormal finding of lung field; D64.9 Anemia, unspecified; Z79.899 Other long term (current) drug therapy; Z99.81 Dependence on supplemental oxygen | CPT/HCPCS: 99212 ==

== ENCOUNTER 2023-03-18 11:27 | Outpatient (REF) | payer MEDICARE, SELFPAY ==
--- NOTE | ~2023-03-18 | CT_ITS ---
EXAMINATION: CT ANGIOGRAM OF THE CHEST WITH AND WITHOUT CONTRAST (CT PULMONARY ANGIOGRAM FOR PE) CLINICAL INFORMATION: Reason for Exam I26.99 - Other pulmonary embolism without acute cor pulmonale COMPARISON: Previous chest CT May 2022 TECHNIQUE: Prior to contrast administration, noncontrast localization images were obtained. Subsequently, multidetector volumetric imaging was performed from the thoracic inlet to below the diaphragms following the administration of 65 mL Omnipaque 350 intravenous contrast. No contrast reaction reported Sagittal, coronal, and MIP oblique sagittal reformatted images were obtained on the CT workstation, uploaded to PACS, and reviewed. This CT examination was performed using dose optimization techniques as appropriate, variously including the following: *Automated exposure control *Adjustment of mA and/or kV according to patient size (this includes techniques or standardized protocols for targeted exams where dose is matched to indication/reason for exam; i.e. extremities or head) *Use of iterative reconstruction technique Total exam dose-length product 104 mGy-cm FINDINGS: QUALITY OF STUDY/CONTRAST BOLUS: Satisfactory. PULMONARY ARTERIES: No pulmonary emboli. THORACIC AORTA: No aneurysm. Atherosclerotic disease. Replaced right subclavian artery. LUNG: Biapical pleural and parenchymal scarring that is stable. Right upper lobe bronchial wall thickening and clustered peribronchial nodules suggestive of airways disease. This is similar to previous exam. Focal right middle lobe, right upper lobe bronchiectasis. Stable mild bronchiectasis bronchial wall thickening and increased peribronchial attenuation in the left lower lobe. Stable calcified pulmonary nodules. Largest pulmonary nodule is a 1.5 cm calcified right middle lobe nodule axial image 36 series 5. PLEURA: No pleural effusion or pneumothorax. MEDIASTINUM: Normal heart size. No pericardial effusion. Small calcified and noncalcified mediastinal and bilateral hilar lymph nodes. No enlarged lymph nodes. No evidence of septal bowing or right heart strain. CORONARY ARTERY CALCIFICATION: None visualized on this study. CHEST WALL/AXILLA: No axillary or internal mammary lymphadenopathy. OSSEOUS STRUCTURES: No acute or suspicious osseous abnormality. Degenerative changes of the spine. UPPER ABDOMEN: Unremarkable. No reflux of contrast into the hepatic veins to suggest elevated right heart pressures. CT/CT angio chest PE protocol IMPRESSION: No evidence of pulmonary embolism. Diffuse airways disease similar to previous exam. Stable bilateral calcified pulmonary nodules probably from old granulomatous disease. VTE: negative
[2023-03-18] MEDS: iohexoL 350 MG/ML 100 ML INFUS..BTL IV (12:56)
== END 2023-03-18 11:28 | disposition home or self-care (01) ==
LOC: HO.CT 11:27
PROVIDERS: PCP Internal Medicine; Visit Provider Hospitalist
DX: I26.99 Other pulmonary embolism without acute cor pulmonale (principal)
CPT/HCPCS: 71275; Q9967

== ENCOUNTER 2023-03-25 08:31 | Outpatient (REF) | payer MEDICARE, SELFPAY | END 2023-03-25 08:32 | disposition home or self-care (01) | LOC: HO.MDS 08:31 | PROVIDERS: Visit Provider Internal Medicine Medical Oncology | DX: D50.8 Other iron deficiency anemias (principal) | CPT/HCPCS: 96365; J1756 ==

== ENCOUNTER 2023-03-28 12:27 | Outpatient (REF) | payer MEDICARE, SELFPAY | END 2023-03-28 12:28 | disposition home or self-care (01) | LOC: HO.MDS 12:27 | PROVIDERS: Visit Provider Internal Medicine Medical Oncology | DX: D50.8 Other iron deficiency anemias (principal) | CPT/HCPCS: 96365; J1756 ==

== ENCOUNTER 2023-04-04 14:27 | Outpatient (REF) | payer MEDICARE, SELFPAY | END 2023-04-04 14:28 | disposition home or self-care (01) | LOC: HO.MDS 14:27 | PROVIDERS: Visit Provider Internal Medicine Medical Oncology | DX: D50.8 Other iron deficiency anemias (principal) | CPT/HCPCS: 96365; J1756 ==

== ENCOUNTER 2023-04-19 14:51 | Outpatient (REF) | payer MEDICARE, SELFPAY ==
[2023-04-19 15:22] LABS: MANUAL DIFF FLAG NO
[2023-04-19 15:27] LABS: Basophils Percent Auto 0.3 % (0-2); Eosinophils Percent Auto 0.1 % (0-4); Hematocrit 28.5 % (37.0-47.0); Hemoglobin 9.3 g/dl (12.0-16.0); Imm Gran Abs Auto 0.09 X10*3/uL (0.00-0.03); Imm Gran Pct Auto 1.2 % (0.0-0.4); Lymphocytes Absolute Auto 0.5 X10*3/uL (1.2-4.9); Lymphocytes Percent Auto 6.5 % (20-40); Mean Corpuscular HGB Conc 32.6 g/dl (31.0-35.0); Mean Corpuscular Hemoglobin 31.8 pg (27.0-33.0); Mean Corpuscular Volume 97.6 fL (80.0-98.0); Mean Platelet Volume 10.5 fL (9.4-12.3); Monocytes Absolute Auto 0.3 X10*3/uL (0.1-1.2); Monocytes Percent Auto 4.2 % (2-11); Neutrophils Absolute Auto 6.4 x10*3/uL (2.0-8.3); Neutrophils Percent Auto 87.7 % (45-73); Platelet Count 266 X10*3/uL (160-400); Red Blood Count 2.92 X10*6/uL (4.20-5.50); Red Cell Distribution Width 13.1 % (11.0-16.0); White Blood Count 7.3 X10*3/uL (4.8-10.8)
== END 2023-04-19 14:52 | disposition home or self-care (01) ==
LOC: HO.MDS 14:51
PROVIDERS: Visit Provider Internal Medicine Medical Oncology
DX: D50.8 Other iron deficiency anemias (principal)
CPT/HCPCS: 36415; 85025; 96365; J1756

== ENCOUNTER 2023-04-20 08:52 | Outpatient (REF) | payer MEDICARE, SELFPAY ==
[2023-04-20 10:00] VITALS: O2SAT 96
== END 2023-04-20 08:53 | disposition home or self-care (01) ==
LOC: HO.RESP 08:52
PROVIDERS: PCP Internal Medicine; Visit Provider Hospitalist
DX: R06.00 Dyspnea, unspecified (principal)
CPT/HCPCS: 36600; 82803; 94010; 94727; 94729

== ENCOUNTER 2023-04-21 09:55 | Outpatient (AMB) | payer MEDICARE, SELFPAY ==
[2023-04-21 09:59] VITALS: BP 132/70; PULSE 77; O2SAT 95; BMI 22.2
--- NOTE | 2023-04-21 09:59 | MHC.OFFVIS ---
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 She had been treated in the past for this condition. 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 Unfortunately she cannot tolerate quinolones nor THOR due to adverse reactions. She has been doing very well in the meantime. She continues to have shortness of breath with activity mild in severity. Also got worse when she did go up to the high altitudes. Also had productive cough off and on. She continues to use the flutter valve. She has also pulmonary nodules. She had a last CT scan of the chest back in March 2018 that we personally reviewed demonstrating stable pulmonary no 11/09/2021 the patient is here for a pulmonary follow-up visit. Overall the patient has been doing well. She has been participating in pulmonary rehab and has been staying active. She does use her oxygen with activity. This also has been helpful. She also continue with severe chest physical therapy. She does use a percussion vest and this may be affecting her back possibly resulting in some back pain. Patient also has evidence of significant scoliosis. She did undergo pulmonary function studies which was personally by me. It appears that her FVC, FEV1 and diffusing capacity are trending a little bit better. However, her total lung capacity slightly decreased although not significant. This may be multifactorial. But it may to some degree be due to her musculoskeletal issues. I will have her be evaluated by Physical therapy to see if they can provide her with some relief as far as her scoliosis and potentially lung expansion. However, she continues the back pain she also may have to decrease the frequency on her percussion vest which could also be contributing to the pain. In the meantime she will continue participating in pulmonary rehabilitation. No changes on the medications at this time. She did have an EKG sometime in March and she did follow-up with cardiology after that. Will plan to repeat an EKG sometime in the fall 2021. 05/17/2022 the patient is here for pulmonary follow-up visit. Overall she continues to do well from a respiratory status. She continues on the azithromycin. She is using that 3 times a week for the treatment of mycobacterial lung disease. Patient understands that using medication by itself can result in resistance. She also continues to use the hypertonic saline for chest physical therapy. She continues to participate in pulmonary rehab which has been very effective beneficial for her. The only issue is that she still has a persistent cough. The cough for the most part is nonproductive in nature. Sometimes when she starts coughing she has a hard time stopping in therefore she has a hard time going to places like latter-day or the gatherings where she becomes conscientious about her cough. We talked about different cough suppressants use. Tessalon Perles may be effective however the probably will not be covered. She can also use cough medicine with codeine also in certain occasions where she is at home and not driving which she can take a small dose to help with suppress the cough. The patient has had also some pleuritic chest discomfort. Currently she she states that her symptoms have resolved. If her symptoms persist she is to get a chest x-ray. In the meantime she did have a CT scan of the chest back in June 2021 demonstrating pulmonary nodules and bronchiectatic changes. She is scheduled to have a repeat CT scan June of this year. During the visit the patient did have an EKG done demonstrating normal QTC. Although, her EKG is abnormal with a left bundle branch block and left axis deviation. I did give her a copy of the EKG. This left bundle branch block has been well documented in the past. 08/02/2022 the patient is here for a pulmonary follow-up visit. The patient has not been feeling well now for the last several months. However, she has further declining the last several weeks. Started developing worsening cough with chest congestion. Addition to increasing shortness of breath. She denies any fevers or chills. She denies any sick contacts. The phlegm is thicker and darker in color. Usually yellowish green. She has been taking the azithromycin 3 times a week and was working well for her. She did have a CT scan of the chest sometime in May 2022 which demonstrated the underlying bronchiectatic changes in the bronchiolitis. Relatively unchanged. In the office we were able to give her neb treatment with Xopenex and hypertonic saline. She was able to produce a sputum that was sent for culture and also AFB. In the meantime the patient does have some increased wheezing on examination so therefore will start her on a course of prednisone. She is reluctant to take high doses therefore I gave a small prednisone taper. She has responded well to Augmentin in the past therefore she will also start that. She has had history of Pseudomonas so therefore the patient understands that Pseudomonas would only be treated with quinolones and unfortunately she had a hard time tolerating quinolones in the past. Other options to treat Pseudomonas would be inhaled tobramycin or IV antibiotics if she were to worsen further. For now will just have to await the results of the culture. In meantime she is going to start the antibiotic therapy. 09/20/2022 the patient is here for a pulmonary follow-up visit. Overall she is feeling a lot better. She did complete the prednisone and also the Augmentin. Her sputum culture was positive for Haemophilus influenzae which was penicillin resistant. In addition to that her sputum culture was positive for mycobacterium speciaes. The she has been on the azithromycin 3 times a week. Therefore, explained to her that we are waiting for sensitivities. Clinically the patient is doing better so which is weight she get back the results. Based on the result will talk about any a mentation of the therapy that needs to be done in order to avoid progression of disease. The patient also has complaint of intermittent right-sided chest discomfort. Right now she feels better. She does not have it all the time. It is not reproducible. I did give her chest x-ray order for her to have it x-ray if her symptoms worsen or persist. The patient otherwise feels well and she will monitor closely. Her last CT scan was back in the fall 2021. Therefore will hopefully hold off to repeating the CAT scan of that time. I am hoping to be able to discuss this insipidus with her and decide on management before repeating the imaging. 11/30/2022 the patient is here for a pulmonary hospital follow-up visit. The patient recently came back from [place]. She was noted to have more shortness of breath and hypoxia. She required additional oxygen. Check call the office initially and our nurse triage recommend that she go to the ER. She did go to the ER here although she was subsequently discharged. Unclear the workup she had. She continued having difficulties with breathing. A week later she called again to the office and again will concerned because of the acute on chronic hypoxic respiratory failure airway recommended this time that she go to the [facility] ER. She went to the ER there quickly had a CT scan of the chest PE protocol demonstrating bilateral basilar pulmonary emboli. The patient also had extensive treating budding bronchiectasis due to mycobacterial disease. Therefore, she was started on Eliquis and was subsequently discharged. She the patient did not have an echocardiogram and did not have lower extremity Dopplers for reason. Patient feels a little better. Although she is still short of breath with activity. [id number] severity. She has wondered if she is going to be able to get back to her baseline. The patient did have moderate amount of blood clot burden. Explained to her that this will take a couple months her to clear. In the meantime we need to address her mycobacterial disease. She did culture different organism still sensitive to the azithromycin. I am concerned that monotherapy will result in increased resistance specially with the exposure to other mycobacterial disease. The patient is willing to start ethambutol. She can not started 3 times a week and then increase the azithromycin to daily. If the patient can tolerate that regimen then she can increase the ethambutol to daily as well. On the combination therapy we will plan to repeat her sputum in a couple months. Hopefully the cultures come back negative and we can decrease her regimen again to 3 times a week. In regards the blood clots the patient will have to get an echocardiogram and also a V/Q scan in a couple months to make sure there is complete clearance of her clot burden. She will continue with the Eliquis twice a day as prescribed at this time. 12/16/2022 the patient is here for sick visit. She has been experiencing worsening dyspnea on exertion for the last 1-2 weeks. Progressively getting worse. Denies any significant wheezing are productive cough. Denies any chest pains. He is mainly progressive dyspnea with any exertion. She has been using her oxygen more often. The patient did go for chest x-ray demonstrating his chronic airway disease. No evidence of any active disease. On examination she did not have any worsening wheezing or rhonchi. She has been taking her anticoagulation for the recent blood clots and that she has been taking with good adherence. She has not noticed any red blood in her urine or any black stools or any blood in the stools. The patient has been having increasing lower extremity edema. Also, reviewing her x-ray I do appreciate some haziness suggesting the possibility of increasing vascular congestion. Therefore you treatment with diuretics will be reasonable. The patient also undergo blood work. 01/13/2023 the patient is here for a pulmonary follow-up visit. Overall she is doing about the same. Still complaining of dyspnea on exertion. Her last hemoglobin was 7.5. She does have an appointment with Hematology today. The patient does have very low iron levels. It also very low ferritin level. This is likely aggravated by the starting of the anticoagulation. The patient will need to have this further evaluated. The anticoagulation she should continue likely indefinitely if she can tolerate it especially there was no significant bleeding. The patient did have an unprovoked event. She does have a GI doctor that she sees in the past and I do believe that she needs to go back for re-evaluation. I will put in referral at this time. The patient also is complaining of lower extremity swelling. She did respond well to the Lasix. She takes additional Lasix at this time. She also had an echocardiogram that was personally reviewed. The patient does have mild pulmonary hypertension that is likely contributing to the edema although not completely. She has also taken a calcium channel rosio that may also be contributing as well. The patient will take the Lasix for 3 days and movement in a low-sodium diet and will reassess. If she continues to have swelling she will call as far as the mycobacterial disease the patient is tolerating the macrolide and ethambutol on a daily basis. Her blood work was reassuring. She will continue taking the daily dose at this time since she can not tolerate it. Her cough is overall better new lungs are clear. Her CT scan did demonstrate significant tree in budding and bronchiectasis. She will need a repeat CT scan in the near future. 02/18/2023 the patient is here for a follow-up visit. Patient continues to have dyspnea on exertion. Moderate severity. The oxygen is partially helpful. She has been on all her respiratory therapy. The patient did undergo a V/Q scan in order to follow-up with her pulmonary emboli. I did get a critical call with the V/Q scan findings therefore I had her come in so we can discuss it. It appears that the V/Q scan still shows V/Q mismatches in the areas where she was documented to have blood clots back in October. Therefore the patient has not had significant improvement of the clot brought in after more than 3 months of therapy with Eliquis. Therefore, she is not responding to the anticoagulation. She did have an echocardiogram also in December demonstrating pulmonary hypertension likely from the result of the chronic thromboembolic disease. In the meantime she has been dealing with the issue with the anemia. She will be evaluated by GI soon regarding potential endoscopy to assess for any occult bleeding in view of the significant anemia while on the Eliquis. We did talk about alternative therapies for anticoagulation. Coumadin will be difficult in view of her antibiotic use for the mycobacterial disease. We also talked but injectables including Lovenox and doubt the parent. I did speak briefly with Hematology and they did agree that does to injectables would be reasonable. The dalteparin would be easier as it is only once a day. Fondaparinux is also as good option. I will make a referral to the [facility] chronic thrombo-embolic disease clinic for furter evaluation. 03/17/2023 the patient is here for a pulmonary follow-up visit. She continues to have significant dyspnea on exertion. Has a hard time doing any activities outside of the house causing her to have significant fatigue the next day. She is having hard time. Recently was evaluated by Hematology. It was noted that hemoglobin dropped from 9.9-9.1. Ferritin level continues to be low even on iron supplementation. Not she is scheduled to undergo IV iron infusions. In addition to that she is scheduled for her endoscopy colonoscopy on Tuesday. I did recommend she can talk to her progressive care nurse about a capsule endoscopy if nothing is found on her studies. We also again talked about her abnormal V/Q scan. the results were suggestive of the possibility of acute or chronic clot. Difficult to differentiate since a did not have the CTA available. I had looked at the CTA and felt strongly that there were all chronic clots. Although still suggesting that she is failing Eliquis. In view of the positive of acute on chronic clots will request a CTA to better address the abnormal V/Q scan findings. Also based on the fact the patient continues to be symptomatic. we did talk about the importance of considering a different anticoagulation agent. However, will have to wait until after she is further evaluated for the anemia as additional blood thinners may be potential problematic if they worsen her anemia. We have referred her to [facility] [place] to the Pulmonary hypertension Clinic based on the fact that she does have evidence of chronic thromboembolic disease resulting in pulmonary hypertension. will wait to see if she is consider. One option will be to consider vasodilators therapy for the patient to help her with the pulmonary hypertension. 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 She also continues use her oxygen. She finds that she is using her oxygen more often. 04/21/2023 the patient is here for preoperative evaluation. The patient overall is feeling better today. She has been using her oxygen with good effect. She is completing a course of prednisone. She has 3 more days. Her respiratory exam is indeed better without any significant wheezing which is reassuring. Right now I believe she is at her best from a respiratory status. She did undergo pulmonary function studies the in addition to an ABG. It appears that she does have a severe obstruction consistent with severe COPD which is very similar to her PFTs for the last 2 years. She also has a mild restriction and has a severe diffusion impairment hence the need for oxygen supplementation. Her blood work asthma is actually very reassuring with a normal pH the the and a pCO2 of 34.6 mmHg which is reassuring the the. The PO2 was 78 mmHg on her oxygen supplementation of 2 L. the patient also has been on Eliquis for the blood clots. She understands because she is high risk for further clot formation when she has surgery she will need to stop the Eliquis 3 days prior and ultimately start Lovenox 12 hours after stopping her Eliquis. We did talk about her risk regarding surgery. The patient does have severe respiratory disease and therefore she does have high risk for perioperative pulmonary complications which includes worsening hypoxia, atelectasis, pneumonia and also prolonged mechanical ventilation. At this point the patient is medically maximized from a respiratory status and there are no other alternative, only surgery. [facility] Medical History (Updated 04/21/23 @ 12:03 by Bang Rocha MD) Chronic thromboembolic disease Anemia aplastic aregenerative Pulmonary hypertension Dyspnea Anemia Pulmonary emboli Chest pain Back pain of thoracolumbar region Nodule on liver Abnormal EKG Asthma-COPD overlap syndrome Hypoxia D-dimer, elevated Pulmonary nodules Mycobacterial disease Asthma Bronchiectasis Social History Household Members: Spouse Household Members Other:: Fili Patient Tobacco Use Status: Never used Tobacco Second Hand Smoke Exposure: No service: No Review of Systems Const Denies chills, Denies fever(s) and Denies night sweats ENT Denies change in voice, Denies lip swelling, Denies mouth pain, Reports nasal congestion, Reports nasal discharge and Denies tongue swelling Card Denies chest pain, Reports leg edema and Reports dyspnea on exertion Resp Denies change in phlegm color, Denies chest congestion, Reports cough, Denies hemoptysis, Reports excessive phlegm production, Denies pain on inspiration, Denies pain with cough, Reports dyspnea on exertion and Denies wheezing GI Denies abdominal pain Musc Reports back pain Neuro Denies Neuro-related abnormal movements Psych Denies no additional complaints Jake/Lymph Denies easy bleeding and Denies lymphadenopathy Aller/Immun Denies lip swelling, Denies tongue swelling and Denies wheezing Physical Exam Vital Signs: Last Vital Signs Pulse 77 04/21/23 09:59 BP 132/70 04/21/23 09:59 Pulse Ox 95 04/21/23 09:59 Oxygen Delivery Method Room Air 04/21/23 09:59 BMI result Body Mass Index 22.2 Const General: alert Neck Neck: Yes normal visual inspection, Yes full ROM and Yes no lymphadenopathy Chest Chest palpation & inspection: normal inspection of the chest Resp Auscultation: no crackles, no rales, no rhonchi, no wheezes and diminished lung sounds Cardio Rate: regular rate Rhythm: regular rhythm Heart sounds: S1 normal heart sound present and S2 normal heart sound present GI Palpation (GI): Soft to palpation and nontender Auscultation: normal bowel sounds Skin General skin exam: rashes and/or lesions noted Extrem General: No clubbing, No cyanosis and Yes edema Assessment & Plan Assessment & Plan (1) Pre-op chest exam: Code(s): Z01.811 - Encounter for preprocedural respiratory examination (2) Pulmonary hypertension: Code(s): I27.20 - Pulmonary hypertension, unspecified (3) Pulmonary embolism: Code(s): I26.99 - Other pulmonary embolism without acute cor pulmonale Qualifiers: Pulmonary embolism type: multiple subsegmental (without acute cor pulmonale) Qualified Code(s): I26.94 - Multiple subsegmental pulmonary emboli without acute cor pulmonale (4) Chronic thromboembolic disease: Code(s): I74.9 - Embolism and thrombosis of unspecified artery (5) Dyspnea: Code(s): R06.00 - Dyspnea, unspecified Qualifiers: Dyspnea type: dyspnea on exertion Qualified Code(s): R06.09 - Other forms of dyspnea (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, unspecified (7) Bronchiectasis: Code(s): J47.9 - Bronchiectasis, uncomplicated Qualifiers: Bronchiectasis type: uncomplicated Qualified Code(s): J47.9 - Bronchiectasis, uncomplicated (8) Pulmonary nodules: Code(s): R91.8 - Other nonspecific abnormal finding of lung field (9) Anemia: Code(s): D64.9 - Anemia, unspecified Qualifiers: Anemia type: iron deficiency Iron deficiency anemia type: chronic blood loss Qualified Code(s): D50.0 - Iron deficiency anemia secondary to blood loss (chronic) Plan The patient is here for preoperative evaluation. The patient does have severe COPD based on recent PFTs. Although these have not changed in the last several years. She also has a severe diffusion impairment. The patient did have a blood gas demonstrating a respiratory alkalosis likely due to hyperventilation during the ABG draw. This is reassuring with a pCO2 of 34.6 mmHg and a PaO2 on the 2 L of oxygen on 78 mmHg. Still, the patient has a high risk for perioperative pulmonary complications which includes hypoxia, atelectasis, pneumonia, prolonged mechanical ventilation and exacerbation of her COPD. At this point the patient is medically optimized and is stable from a respiratory status. I do believe that this is the good window for depression to undergo her needed general surgery for her new diagnosis of colon cancer and also received anesthesia. Based on the blood gas the patient should be able to be liberated from the ventilator after surgery. The patient also will need to be monitor closely for her risk for recurrent blood clots. Recommendations: Patient may proceed with consenting for both anesthesia and surgery for colon cancer. The patient understands the risks. She is medically optimize stated above. Start Lovenox 12 hours after stopping the Eliquis in order to avoid recurrent blood clots. She stop the Lovenox 12 hours at least before surgery. The patient should also be started on Lovenox or restart back in Eliquis whenever she has seems safe to do so. To note the patient has evidence of chronic thrombo-embolic disease based on VQ scan. Continue respiratory therapy with bronchodilator therapy pre and post surgery. Early mobilization incentive spirometer and chest physical therapy during the postoperative. Will help with her secretions. Continue Azithromycin/Ethambutol daily for now. She is on mycobacterial therapy. However, the patient may hold the therapy while in the perioperative period Continue oxygen supplementation F/U 2-3 months Coding Level of Care Code Est Pt Level 5 (54611) Diagnoses Pre-op chest exam Z01.811 Pulmonary hypertension I27.20 Multiple subsegmental pulmonary emboli without acute cor pulmonale I26.94 Pulmonary embolism type: multiple subsegmental (without acute cor pulmonale) Chronic thromboembolic disease I74.9 Dyspnea on exertion R06.09 Dyspnea type: dyspnea on exertion Mycobacterial disease A31.9 Bronchiectasis without complication J47.9 Bronchiectasis type: uncomplicated Pulmonary nodules R91.8 Iron deficiency anemia due to chronic blood loss D50.0 Anemia type: iron deficiency Iron deficiency anemia type: chronic blood loss Time Spent (min) 45
== END 2023-04-21 10:26 | disposition home or self-care (01) ==
PROVIDERS: PCP Internal Medicine; Visit Provider Hospitalist
DX: Z01.811 Encounter for preprocedural respiratory examination (principal); I27.20 Pulmonary hypertension, unspecified; I26.94 Multiple subsegmental thrombotic pulmonary emboli without acute cor pulmonale; I74.9 Embolism and thrombosis of unspecified artery
CPT/HCPCS: 94060; 94727; 94729; 99215

== ENCOUNTER → 2023-04-21 09:55 | Outpatient (BNVA) | payer MEDICARE, SELFPAY | PROVIDERS: PCP Internal Medicine; Visit Provider Hospitalist | DX: Z01.811 Encounter for preprocedural respiratory examination (principal); I27.20 Pulmonary hypertension, unspecified; I26.94 Multiple subsegmental thrombotic pulmonary emboli without acute cor pulmonale; I74.9 Embolism and thrombosis of unspecified artery; R06.09 Other forms of dyspnea; A31.9 Mycobacterial infection, unspecified; J47.9 Bronchiectasis, uncomplicated; R91.8 Other nonspecific abnormal finding of lung field; D50.0 Iron deficiency anemia secondary to blood loss (chronic); Z99.81 Dependence on supplemental oxygen | CPT/HCPCS: 99212 ==

== ENCOUNTER 2023-05-02 14:30 | Outpatient (REF) | payer MEDICARE, SELFPAY | END 2023-05-02 14:31 | disposition home or self-care (01) | LOC: HO.MDS 14:30 | PROVIDERS: Visit Provider Internal Medicine Medical Oncology | DX: D50.8 Other iron deficiency anemias (principal) | CPT/HCPCS: 96374; J1756 ==

== ENCOUNTER 2023-07-28 13:21 | Outpatient (AMB) | payer MEDICARE, SELFPAY ==
[2023-07-28 13:27] VITALS: BP 128/70; PULSE 90; O2SAT 94; BMI 18.3
--- NOTE | 2023-07-28 13:27 | MHC.OFFVIS ---
Intake Vital Signs 07/28/23 13:27 Height 5 ft 8 in Weight 120 lb 2.431 oz BMI 18.3 BP 128/70 Blood Pressure Location Rt brachial Position Sitting Pulse 90 Pulse Source Pulse Oximeter Pulse Oximetry (%) 94 Oxygen Delivery Method Room Air Intake Visit Reasons: COPD Photogeologist Required: No Allergies codeine Adverse Reaction (Severe, Verified 07/28/23 13:32) Agitated Cipro Allergy (Severe, Uncoded 07/28/23 13:32) Rash HPI HPI Comments History of Present Illness Details The patient is a 78-year-old woman with known history of bronchiectasis, COPD and also nontuberculous mycobacterial infection. She had been treated in the past for this condition. 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 Unfortunately she cannot tolerate quinolones nor THOR due to adverse reactions. She has been doing very well in the meantime. She continues to have shortness of breath with activity mild in severity. Also got worse when she did go up to the high altitudes. Also had productive cough off and on. She continues to use the flutter valve. She has also pulmonary nodules. She had a last CT scan of the chest back in March 2018 that we personally reviewed demonstrating stable pulmonary no 11/09/2021 the patient is here for a pulmonary follow-up visit. Overall the patient has been doing well. She has been participating in pulmonary rehab and has been staying active. She does use her oxygen with activity. This also has been helpful. She also continue with severe chest physical therapy. She does use a percussion vest and this may be affecting her back possibly resulting in some back pain. Patient also has evidence of significant scoliosis. She did undergo pulmonary function studies which was personally by me. It appears that her FVC, FEV1 and diffusing capacity are trending a little bit better. However, her total lung capacity slightly decreased although not significant. This may be multifactorial. But it may to some degree be due to her musculoskeletal issues. I will have her be evaluated by Physical therapy to see if they can provide her with some relief as far as her scoliosis and potentially lung expansion. However, she continues the back pain she also may have to decrease the frequency on her percussion vest which could also be contributing to the pain. In the meantime she will continue participating in pulmonary rehabilitation. No changes on the medications at this time. She did have an EKG sometime in March and she did follow-up with cardiology after that. Will plan to repeat an EKG sometime in the fall 2021. 05/17/2022 the patient is here for pulmonary follow-up visit. Overall she continues to do well from a respiratory status. She continues on the azithromycin. She is using that 3 times a week for the treatment of mycobacterial lung disease. Patient understands that using medication by itself can result in resistance. She also continues to use the hypertonic saline for chest physical therapy. She continues to participate in pulmonary rehab which has been very effective beneficial for her. The only issue is that she still has a persistent cough. The cough for the most part is nonproductive in nature. Sometimes when she starts coughing she has a hard time stopping in therefore she has a hard time going to places like faith or the gatherings where she becomes conscientious about her cough. We talked about different cough suppressants use. Tessalon Perles may be effective however the probably will not be covered. She can also use cough medicine with codeine also in certain occasions where she is at home and not driving which she can take a small dose to help with suppress the cough. The patient has had also some pleuritic chest discomfort. Currently she she states that her symptoms have resolved. If her symptoms persist she is to get a chest x-ray. In the meantime she did have a CT scan of the chest back in June 2021 demonstrating pulmonary nodules and bronchiectatic changes. She is scheduled to have a repeat CT scan June of this year. During the visit the patient did have an EKG done demonstrating normal QTC. Although, her EKG is abnormal with a left bundle branch block and left axis deviation. I did give her a copy of the EKG. This left bundle branch block has been well documented in the past. 08/02/2022 the patient is here for a pulmonary follow-up visit. The patient has not been feeling well now for the last several months. However, she has further declining the last several weeks. Started developing worsening cough with chest congestion. Addition to increasing shortness of breath. She denies any fevers or chills. She denies any sick contacts. The phlegm is thicker and darker in color. Usually yellowish green. She has been taking the azithromycin 3 times a week and was working well for her. She did have a CT scan of the chest sometime in May 2022 which demonstrated the underlying bronchiectatic changes in the bronchiolitis. Relatively unchanged. In the office we were able to give her neb treatment with Xopenex and hypertonic saline. She was able to produce a sputum that was sent for culture and also AFB. In the meantime the patient does have some increased wheezing on examination so therefore will start her on a course of prednisone. She is reluctant to take high doses therefore I gave a small prednisone taper. She has responded well to Augmentin in the past therefore she will also start that. She has had history of Pseudomonas so therefore the patient understands that Pseudomonas would only be treated with quinolones and unfortunately she had a hard time tolerating quinolones in the past. Other options to treat Pseudomonas would be inhaled tobramycin or IV antibiotics if she were to worsen further. For now will just have to await the results of the culture. In meantime she is going to start the antibiotic therapy. 09/20/2022 the patient is here for a pulmonary follow-up visit. Overall she is feeling a lot better. She did complete the prednisone and also the Augmentin. Her sputum culture was positive for Haemophilus influenzae which was penicillin resistant. In addition to that her sputum culture was positive for mycobacterium speciaes. The she has been on the azithromycin 3 times a week. Therefore, explained to her that we are waiting for sensitivities. Clinically the patient is doing better so which is weight she get back the results. Based on the result will talk about any a mentation of the therapy that needs to be done in order to avoid progression of disease. The patient also has complaint of intermittent right-sided chest discomfort. Right now she feels better. She does not have it all the time. It is not reproducible. I did give her chest x-ray order for her to have it x-ray if her symptoms worsen or persist. The patient otherwise feels well and she will monitor closely. Her last CT scan was back in the fall 2021. Therefore will hopefully hold off to repeating the CAT scan of that time. I am hoping to be able to discuss this insipidus with her and decide on management before repeating the imaging. 11/30/2022 the patient is here for a pulmonary hospital follow-up visit. The patient recently came back from [place]. She was noted to have more shortness of breath and hypoxia. She required additional oxygen. Check call the office initially and our nurse triage recommend that she go to the ER. She did go to the ER here although she was subsequently discharged. Unclear the workup she had. She continued having difficulties with breathing. A week later she called again to the office and again will concerned because of the acute on chronic hypoxic respiratory failure airway recommended this time that she go to the [facility] ER. She went to the ER there quickly had a CT scan of the chest PE protocol demonstrating bilateral basilar pulmonary emboli. The patient also had extensive treating budding bronchiectasis due to mycobacterial disease. Therefore, she was started on Eliquis and was subsequently discharged. She the patient did not have an echocardiogram and did not have lower extremity Dopplers for reason. Patient feels a little better. Although she is still short of breath with activity. [id number] severity. She has wondered if she is going to be able to get back to her baseline. The patient did have moderate amount of blood clot burden. Explained to her that this will take a couple months her to clear. In the meantime we need to address her mycobacterial disease. She did culture different organism still sensitive to the azithromycin. I am concerned that monotherapy will result in increased resistance specially with the exposure to other mycobacterial disease. The patient is willing to start ethambutol. She can not started 3 times a week and then increase the azithromycin to daily. If the patient can tolerate that regimen then she can increase the ethambutol to daily as well. On the combination therapy we will plan to repeat her sputum in a couple months. Hopefully the cultures come back negative and we can decrease her regimen again to 3 times a week. In regards the blood clots the patient will have to get an echocardiogram and also a V/Q scan in a couple months to make sure there is complete clearance of her clot burden. She will continue with the Eliquis twice a day as prescribed at this time. 12/16/2022 the patient is here for sick visit. She has been experiencing worsening dyspnea on exertion for the last 1-2 weeks. Progressively getting worse. Denies any significant wheezing are productive cough. Denies any chest pains. He is mainly progressive dyspnea with any exertion. She has been using her oxygen more often. The patient did go for chest x-ray demonstrating his chronic airway disease. No evidence of any active disease. On examination she did not have any worsening wheezing or rhonchi. She has been taking her anticoagulation for the recent blood clots and that she has been taking with good adherence. She has not noticed any red blood in her urine or any black stools or any blood in the stools. The patient has been having increasing lower extremity edema. Also, reviewing her x-ray I do appreciate some haziness suggesting the possibility of increasing vascular congestion. Therefore you treatment with diuretics will be reasonable. The patient also undergo blood work. 01/13/2023 the patient is here for a pulmonary follow-up visit. Overall she is doing about the same. Still complaining of dyspnea on exertion. Her last hemoglobin was 7.5. She does have an appointment with Hematology today. The patient does have very low iron levels. It also very low ferritin level. This is likely aggravated by the starting of the anticoagulation. The patient will need to have this further evaluated. The anticoagulation she should continue likely indefinitely if she can tolerate it especially there was no significant bleeding. The patient did have an unprovoked event. She does have a GI doctor that she sees in the past and I do believe that she needs to go back for re-evaluation. I will put in referral at this time. The patient also is complaining of lower extremity swelling. She did respond well to the Lasix. She takes additional Lasix at this time. She also had an echocardiogram that was personally reviewed. The patient does have mild pulmonary hypertension that is likely contributing to the edema although not completely. She has also taken a calcium channel rosio that may also be contributing as well. The patient will take the Lasix for 3 days and movement in a low-sodium diet and will reassess. If she continues to have swelling she will call as far as the mycobacterial disease the patient is tolerating the macrolide and ethambutol on a daily basis. Her blood work was reassuring. She will continue taking the daily dose at this time since she can not tolerate it. Her cough is overall better new lungs are clear. Her CT scan did demonstrate significant tree in budding and bronchiectasis. She will need a repeat CT scan in the near future. 02/18/2023 the patient is here for a follow-up visit. Patient continues to have dyspnea on exertion. Moderate severity. The oxygen is partially helpful. She has been on all her respiratory therapy. The patient did undergo a V/Q scan in order to follow-up with her pulmonary emboli. I did get a critical call with the V/Q scan findings therefore I had her come in so we can discuss it. It appears that the V/Q scan still shows V/Q mismatches in the areas where she was documented to have blood clots back in October. Therefore the patient has not had significant improvement of the clot brought in after more than 3 months of therapy with Eliquis. Therefore, she is not responding to the anticoagulation. She did have an echocardiogram also in December demonstrating pulmonary hypertension likely from the result of the chronic thromboembolic disease. In the meantime she has been dealing with the issue with the anemia. She will be evaluated by GI soon regarding potential endoscopy to assess for any occult bleeding in view of the significant anemia while on the Eliquis. We did talk about alternative therapies for anticoagulation. Coumadin will be difficult in view of her antibiotic use for the mycobacterial disease. We also talked but injectables including Lovenox and doubt the parent. I did speak briefly with Hematology and they did agree that does to injectables would be reasonable. The dalteparin would be easier as it is only once a day. Fondaparinux is also as good option. I will make a referral to the [facility] chronic thrombo-embolic disease clinic for furter evaluation. 03/17/2023 the patient is here for a pulmonary follow-up visit. She continues to have significant dyspnea on exertion. Has a hard time doing any activities outside of the house causing her to have significant fatigue the next day. She is having hard time. Recently was evaluated by Hematology. It was noted that hemoglobin dropped from 9.9-9.1. Ferritin level continues to be low even on iron supplementation. Not she is scheduled to undergo IV iron infusions. In addition to that she is scheduled for her endoscopy colonoscopy on Tuesday. I did recommend she can talk to her healthcare project manager about a capsule endoscopy if nothing is found on her studies. We also again talked about her abnormal V/Q scan. the results were suggestive of the possibility of acute or chronic clot. Difficult to differentiate since a did not have the CTA available. I had looked at the CTA and felt strongly that there were all chronic clots. Although still suggesting that she is failing Eliquis. In view of the positive of acute on chronic clots will request a CTA to better address the abnormal V/Q scan findings. Also based on the fact the patient continues to be symptomatic. we did talk about the importance of considering a different anticoagulation agent. However, will have to wait until after she is further evaluated for the anemia as additional blood thinners may be potential problematic if they worsen her anemia. We have referred her to [place] to the Pulmonary hypertension Clinic based on the fact that she does have evidence of chronic thromboembolic disease resulting in pulmonary hypertension. will wait to see if she is consider. One option will be to consider vasodilators therapy for the patient to help her with the pulmonary hypertension. 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 She also continues use her oxygen. She finds that she is using her oxygen more often. 04/21/2023 the patient is here for preoperative evaluation. The patient overall is feeling better today. She has been using her oxygen with good effect. She is completing a course of prednisone. She has 3 more days. Her respiratory exam is indeed better without any significant wheezing which is reassuring. Right now I believe she is at her best from a respiratory status. She did undergo pulmonary function studies the in addition to an ABG. It appears that she does have a severe obstruction consistent with severe COPD which is very similar to her PFTs for the last 2 years. She also has a mild restriction and has a severe diffusion impairment hence the need for oxygen supplementation. Her blood work asthma is actually very reassuring with a normal pH the the and a pCO2 of 34.6 mmHg which is reassuring the the. The PO2 was 78 mmHg on her oxygen supplementation of 2 L. the patient also has been on Eliquis for the blood clots. She understands because she is high risk for further clot formation when she has surgery she will need to stop the Eliquis 3 days prior and ultimately start Lovenox 12 hours after stopping her Eliquis. We did talk about her risk regarding surgery. The patient does have severe respiratory disease and therefore she does have high risk for perioperative pulmonary complications which includes worsening hypoxia, atelectasis, pneumonia and also prolonged mechanical ventilation. At this point the patient is medically maximized from a respiratory status and there are no other alternative, only surgery. 07/28/2023 the patient is here for pulmonary follow-up visit. She has had a very eventful few months. She did undergo her bowel resection for the colon cancer and that was successful. The patient has been able to tolerate the Eliquis and seems like hemoglobins overall better. The iron and ferritin levels also normalized. She has having a lot of constipation so I did recommend she can stop the iron supplementation for now to see if that can improve her significant constipation. Also the patient was evaluated in [place] for her chronic thromboembolic disease and pulmonary hypertension. 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 however, during the angiogram apparently she went into cardiac arrest. I do not have the records at this time . the patient had to be defibrillated and she did stay in the hospital for 3 days. Now she has a Holter monitor. She was started on sildenafil which she will be starting the next day or so for her pulmonary hypertension. In the meantime she continues on the azithromycin and ethambutol for her mycobacterial disease. She was kept in the macrolide therapy. We have to make sure that she is tolerating the macrolide therapy with cardiac history. She did have an EKG in [place]. Will also make sure she has the referral with Cardiology locally as she had this very significant event. [facility] Medical History (Updated 07/28/23 @ 13:56 by Bang Rocha MD) Cardiac arrest Chronic thromboembolic disease Anemia aplastic aregenerative Pulmonary hypertension Dyspnea Anemia Pulmonary emboli Chest pain Back pain of thoracolumbar region Nodule on liver Abnormal EKG Asthma-COPD overlap syndrome Hypoxia D-dimer, elevated Pulmonary nodules Mycobacterial disease Asthma Bronchiectasis Social History Household Members: Spouse Household Members Other:: Fili Patient Tobacco Use Status: Never used Tobacco Second Hand Smoke Exposure: No service: No Review of Systems Const Denies chills, Denies fever(s), Denies night sweats and Reports weight loss ENT Denies change in voice, Denies lip swelling, Denies mouth pain, Reports nasal congestion, Reports nasal discharge and Denies tongue swelling Card Denies chest pain and Reports dyspnea on exertion Resp Denies change in phlegm color, Denies chest congestion, Reports cough, Denies hemoptysis, Reports excessive phlegm production, Denies pain on inspiration, Denies pain with cough, Reports dyspnea on exertion and Denies wheezing GI Reports constipation and Reports nausea Musc Reports back pain Skin/Breast Denies rash Neuro Denies Neuro-related abnormal movements Psych Denies no additional complaints Jake/Lymph Denies easy bleeding and Denies lymphadenopathy Aller/Immun Denies lip swelling, Denies tongue swelling and Denies wheezing Physical Exam Vital Signs: Last Vital Signs Pulse 90 07/28/23 13:27 BP 128/70 07/28/23 13:27 Pulse Ox 94 07/28/23 13:27 Oxygen Delivery Method Room Air 07/28/23 13:27 BMI result Body Mass Index 18.3 Const General: alert Neck Neck: Yes normal visual inspection, Yes full ROM and Yes no lymphadenopathy Chest Chest palpation & inspection: normal inspection of the chest Resp Auscultation: no crackles, no rales, no rhonchi, no wheezes and diminished lung sounds Cardio Rate: regular rate Rhythm: regular rhythm Heart sounds: S1 normal heart sound present and S2 normal heart sound present GI Palpation (GI): Soft to palpation and nontender Auscultation: normal bowel sounds Skin General skin exam: rashes and/or lesions noted Extrem General: No clubbing, No cyanosis and Yes edema Assessment & Plan Assessment & Plan (1) Anemia: Code(s): D64.9 - Anemia, unspecified Qualifiers: Anemia type: iron deficiency Iron deficiency anemia type: chronic blood loss Qualified Code(s): D50.0 - Iron deficiency anemia secondary to blood loss (chronic) (2) Cardiac arrest: Code(s): I46.9 - Cardiac arrest, cause unspecified (3) Pulmonary hypertension: Code(s): I27.20 - Pulmonary hypertension, unspecified (4) Pulmonary embolism: Code(s): I26.99 - Other pulmonary embolism without acute cor pulmonale Qualifiers: Pulmonary embolism type: multiple subsegmental (without acute cor pulmonale) Qualified Code(s): I26.94 - Multiple subsegmental pulmonary emboli without acute cor pulmonale (5) Chronic thromboembolic disease: Code(s): I74.9 - Embolism and thrombosis of unspecified artery (6) Dyspnea: Code(s): R06.00 - Dyspnea, unspecified Qualifiers: Dyspnea type: dyspnea on exertion Qualified Code(s): R06.09 - Other forms of dyspnea (7) Mycobacterial disease: Code(s): A31.9 - Mycobacterial infection, unspecified (8) Bronchiectasis: Code(s): J47.9 - Bronchiectasis, uncomplicated Qualifiers: Bronchiectasis type: uncomplicated Qualified Code(s): J47.9 - Bronchiectasis, uncomplicated (9) Pulmonary nodules: Code(s): R91.8 - Other nonspecific abnormal finding of lung field Plan Continue azithromycin/Ethambutol ANUSHA as needed CPT Awaiting holter monitor results Needs an urgent cardiology eval after her cardiac arrest in [place], saw Dr Metz in the past Bloodwork Stop Iron supplement for now due to contipation continue oxygen supplementation Will be starting Revatio TID as per [facility] continue Eliquis F/U 8-12 weeks Orders: Orders Ferritin Today D64.9 - Anemia, unspecified IRON PROFILE Today D64.9 - Anemia, unspecified Basic Metabolic Panel Today D64.9 - Anemia, unspecified Complete Blood Count Auto Diff Today D64.9 - Anemia, unspecified Referrals Cardiology Referral I46.9 - Cardiac arrest, cause unspecified Coding Level of Care Code Est Pt Level 5 (64603) Diagnoses Iron deficiency anemia due to chronic blood loss D50.0 Anemia type: iron deficiency Iron deficiency anemia type: chronic blood loss Cardiac arrest I46.9 Pulmonary hypertension I27.20 Multiple subsegmental pulmonary emboli without acute cor pulmonale I26.94 Pulmonary embolism type: multiple subsegmental (without acute cor pulmonale) Chronic thromboembolic disease I74.9 Dyspnea on exertion R06.09 Dyspnea type: dyspnea on exertion Mycobacterial disease A31.9 Bronchiectasis without complication J47.9 Bronchiectasis type: uncomplicated Pulmonary nodules R91.8 Time Spent (min) 45
== END 2023-07-28 14:03 | disposition home or self-care (01) ==
PROVIDERS: PCP Internal Medicine; Visit Provider Hospitalist
DX: D50.0 Iron deficiency anemia secondary to blood loss (chronic) (principal); I46.9 Cardiac arrest, cause unspecified; I27.20 Pulmonary hypertension, unspecified; I26.94 Multiple subsegmental thrombotic pulmonary emboli without acute cor pulmonale; I74.9 Embolism and thrombosis of unspecified artery; R06.09 Other forms of dyspnea; A31.9 Mycobacterial infection, unspecified; J47.9 Bronchiectasis, uncomplicated; R91.8 Other nonspecific abnormal finding of lung field
CPT/HCPCS: 99215

== ENCOUNTER → 2023-07-28 13:21 | Outpatient (BNVA) | payer MEDICARE, SELFPAY | PROVIDERS: PCP Internal Medicine; Visit Provider Hospitalist | DX: J47.9 Bronchiectasis, uncomplicated (principal); I27.20 Pulmonary hypertension, unspecified; I46.9 Cardiac arrest, cause unspecified; I26.94 Multiple subsegmental thrombotic pulmonary emboli without acute cor pulmonale; I74.9 Embolism and thrombosis of unspecified artery; D50.0 Iron deficiency anemia secondary to blood loss (chronic); R06.09 Other forms of dyspnea; A31.9 Mycobacterial infection, unspecified; R91.8 Other nonspecific abnormal finding of lung field | CPT/HCPCS: 99212 ==

== ENCOUNTER 2023-10-14 13:21 | Outpatient (AMB) | payer MEDICARE, SELFPAY ==
--- NOTE | 2023-10-14 13:27 | A.OFFVIS_ITS ---
Intake Vital Signs 10/14/23 13:28 Height 5 ft 4 in Weight 111 lb 5.335 oz BMI 19.1 BP 122/64 Blood Pressure Location Lt brachial Position Sitting Pulse 87 Pulse Source Doppler Pulse Oximetry (%) 94 Oxygen Delivery Method Room Air Intake Visit Reasons: COPD Allergies codeine Adverse Reaction (Severe, Verified 10/14/23 13:33) Agitated Cipro Allergy (Severe, Uncoded 07/28/23 13:32) Rash HPI HPI Comments History of Present Illness Details The patient is a 78-year-old woman with known history of bronchiectasis, COPD and also nontuberculous mycobacterial infection. She had been treated in the past for this condition. 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 Unfortunately she cannot tolerate quinolones nor THOR due to adverse reactions. She has been doing very well in the meantime. She continues to have shortness of breath with activity mild in severity. Also got worse when she did go up to the high altitudes. Also had productive cough off and on. She continues to use the flutter valve. She has also pulmonary nodules. She had a last CT scan of the chest back in March 2018 that we personally reviewed demonstrating stable pulmonary no 11/09/2021 the patient is here for a pulmonary follow-up visit. Overall the patient has been doing well. She has been participating in pulmonary rehab and has been staying active. She does use her oxygen with activity. This also has been helpful. She also continue with severe chest physical therapy. She does use a percussion vest and this may be affecting her back possibly resulting in some back pain. Patient also has evidence of significant scoliosis. She did undergo pulmonary function studies which was personally by me. It appears that her FVC, FEV1 and diffusing capacity are trending a little bit better. However, her total lung capacity slightly decreased although not significant. This may be multifactorial. But it may to some degree be due to her musculoskeletal issues. I will have her be evaluated by Physical therapy to see if they can provide her with some relief as far as her scoliosis and potentially lung expansion. However, she continues the back pain she also may have to decrease the frequency on her percussion vest which could also be contributing to the pain. In the meantime she will continue participating in pulmonary rehabilitation. No changes on the medications at this time. She did have an EKG sometime in March and she did follow-up with cardiology after that. Will plan to repeat an EKG sometime in the fall 2021. 05/17/2022 the patient is here for pulmonary follow-up visit. Overall she continues to do well from a respiratory status. She continues on the azithromycin. She is using that 3 times a week for the treatment of mycobacterial lung disease. Patient understands that using medication by itself can result in resistance. She also continues to use the hypertonic saline for chest physical therapy. She continues to participate in pulmonary rehab which has been very effective beneficial for her. The only issue is that she still has a persistent cough. The cough for the most part is nonproductive in nature. Sometimes when she starts coughing she has a hard time stopping in therefore she has a hard time going to places like yazidism or the gatherings where she becomes conscientious about her cough. We talked about different cough suppressants use. Tessalon Perles may be effective however the probably will not be covered. She can also use cough medicine with codeine also in certain occasions where she is at home and not driving which she can take a small dose to help with suppress the cough. The patient has had also some pleuritic chest discomfort. Currently she she states that her symptoms have resolved. If her symptoms persist she is to get a chest x-ray. In the meantime she did have a CT scan of the chest back in June 2021 demonstrating pulmonary nodules and bronchiectatic changes. She is scheduled to have a repeat CT scan June of this year. During the visit the patient did have an EKG done demonstrating normal QTC. Although, her EKG is abnormal with a left bundle branch block and left axis deviation. I did give her a copy of the EKG. This left bundle branch block has been well documented in the past. 08/02/2022 the patient is here for a pulmonary follow-up visit. The patient has not been feeling well now for the last several months. However, she has further declining the last several weeks. Started developing worsening cough with chest congestion. Addition to increasing shortness of breath. She denies any fevers or chills. She denies any sick contacts. The phlegm is thicker and darker in color. Usually yellowish green. She has been taking the azithromycin 3 times a week and was working well for her. She did have a CT scan of the chest sometime in May 2022 which demonstrated the underlying bronchiectatic changes in the bronchiolitis. Relatively unchanged. In the office we were able to give her neb treatment with Xopenex and hypertonic saline. She was able to produce a sputum that was sent for culture and also AFB. In the meantime the patient does have some increased wheezing on examination so therefore will start her on a course of prednisone. She is reluctant to take high doses therefore I gave a small prednisone taper. She has responded well to Augmentin in the past therefore she will also start that. She has had history of Pseudomonas so therefore the patient understands that Pseudomonas would only be treated with quinolones and unfortunately she had a hard time tolerating quinolones in the past. Other options to treat Pseudomonas would be inhaled tobramycin or IV antibiotics if she were to worsen further. For now will just have to await the results of the culture. In meantime she is going to start the antibiotic therapy. 09/20/2022 the patient is here for a pulmonary follow-up visit. Overall she is feeling a lot better. She did complete the prednisone and also the Augmentin. Her sputum culture was positive for Haemophilus influenzae which was penicillin resistant. In addition to that her sputum culture was positive for mycobacterium speciaes. The she has been on the azithromycin 3 times a week. Therefore, explained to her that we are waiting for sensitivities. Clinically the patient is doing better so which is weight she get back the results. Based on the result will talk about any a mentation of the therapy that needs to be done in order to avoid progression of disease. The patient also has complaint of intermittent right-sided chest discomfort. Right now she feels better. She does not have it all the time. It is not reproducible. I did give her chest x- ray order for her to have it x-ray if her symptoms worsen or persist. The patient otherwise feels well and she will monitor closely. Her last CT scan was back in the fall 2021. Therefore will hopefully hold off to repeating the CAT scan of that time. I am hoping to be able to discuss this insipidus with her and decide on management before repeating the imaging. 11/30/2022 the patient is here for a pulmonary hospital follow-up visit. The patient recently came back from [place]. She was noted to have more shortness of breath and hypoxia. She required additional oxygen. Check call the office initially and our nurse triage recommend that she go to the ER. She did go to the ER here although she was subsequently discharged. Unclear the workup she had. She continued having difficulties with breathing. A week later she called again to the office and again will concerned because of the acute on chronic hypoxic respiratory failure airway recommended this time that she go to the [facility] ER. She went to the ER there quickly had a CT scan of the chest PE protocol demonstrating bilateral basilar pulmonary emboli. The patient also had extensive treating budding bronchiectasis due to mycobacterial disease. Therefore, she was started on Eliquis and was subsequently discharged. She the patient did not have an echocardiogram and did not have lower extremity Dopplers for reason. Patient feels a little better. Although she is still short of breath with activity. [id number]-az-[id number] severity. She has wondered if she is going to be able to get back to her baseline. The patient did have moderate amount of blood clot burden. Explained to her that this will take a couple months her to clear. In the meantime we need to address her mycobacterial disease. She did culture different organism still sensitive to the azithromycin. I am concerned that monotherapy will result in increased resistance specially with the exposure to other mycobacterial disease. The pa tonja is willing to start ethambutol. She can not started 3 times a week and then increase the azithromycin to daily. If the patient can tolerate that regimen then she can increase the ethambutol to daily as well. On the combination therapy we will plan to repeat her sputum in a couple months. Hopefully the cultures come back negative and we can decrease her regimen again to 3 times a week. In regards the blood clots the patient will have to get an echocardiogram and also a V/Q scan in a couple months to make sure there is complete clearance of her clot burden. She will continue with the Eliquis twice a day as prescribed at this time. 12/16/2022 the patient is here for sick visit. She has been experiencing worsening dyspnea on exertion for the last 1-2 weeks. Progressively getting worse. Denies any significant wheezing are productive cough. Denies any chest pains. He is mainly progressive dyspnea with any exertion. She has been using her oxygen more often. The patient did go for chest x-ray demonstrating his chronic airway disease. No evidence of any active disease. On examination she did not have any worsening wheezing or rhonchi. She has been taking her antico agulation for the recent blood clots and that she has been taking with good adherence. She has not noticed any red blood in her urine or any black stools or any blood in the stools. The patient has been having increasing lower extremity edema. Also, reviewing her x-ray I do appreciate some haziness suggesting the possibility of increasing vascular congestion. Therefore you treatment with diuretics will be reasonable. The patient also undergo blood work. 01/13/2023 the patient is here for a pulmonary follow-up visit. Overall she is doing about the same. Still complaining of dyspnea on exertion. Her last hemoglobin was 7.5. She does have an appointment with Hematology today. The patient does have very low iron levels. It also very low ferritin level. This is likely aggravated by the starting of the anticoagulation. The patient will need to have this further evaluated. The anticoagulation she should continue likely indefinitely if she can tolerate it especially there was no significant bleeding. The patient did have an unprovoked event. She does have a GI doctor that she sees in the past and I do believe that she needs to go back for re- evaluation. I will put in referral at this time. The patient also is complaining of lower extremity swelling. She did respond well to the Lasix. She takes additional Lasix at this time. She also had an echocardiogram that wa s personally reviewed. The patient does have mild pulmonary hypertension that is likely contributing to the edema although not completely. She has also taken a calcium channel rosio that may also be contributing as well. The patient will take the Lasix for 3 days and movement in a low-sodium diet and will reassess. If she continues to have swelling she will call as far as the mycobacterial disease the patient is tolerating the macrolide and ethambutol on a daily basis. Her blood work was reassuring. She will continue taking the daily dose at this time since she can not tolerate it. Her cough is overall better new lungs are clear. Her CT scan did demonstrate significant tree in budding and bronchiectasis. She will need a repeat CT scan in the near future. 02/18/2023 the patient is here for a follow-up visit. Patient continues to have dyspnea on exertion. Moderate severity. The oxygen is partially helpful. She has been on all her respiratory therapy. The patient did undergo a V/Q scan in order to follow-up with her pulmonary emboli. I did get a critical call with the V/Q scan findings therefore I had her come in so we can discuss it. It appears that the V/Q scan still shows V/Q mismatches in the areas where she was documented to have blood clots back in October. Therefore the patient has not had significant improvement of the clot brought in after more than 3 months of therapy with Eliquis. Therefore, she is not responding to the anticoagulation. She did have an echocardiogram also in December demonstrating pulmonary hypertension likely from the result of the chronic thromboembolic disease. In the meantime she has been dealing with the issue with the anemia. She will be evaluated by GI soon regarding potential endoscopy to assess for any occult bleeding in view of the significant anemia while on the Eliquis. We did talk about alternative therapies for anticoagulation. Coumadin will be difficult in view of her antibiotic use for the mycobacterial disease. We also talked but injectables including Lovenox and doubt the parent. I did speak briefly with Hematology and they did agree that does to injectables would be reasonable. The dalteparin wo uld be easier as it is only once a day. Fondaparinux is also as good option. I will make a referral to the [facility] chronic thrombo-embolic disease clinic for furter evaluation. 03/17/2023 the patient is here for a pulmonary follow-up visit. She continues to have significant dyspnea on exertion. Has a hard time doing any activities outside of the house causing her to have significant fatigue the next day. She is having hard time. Recently was evaluated by Hematology. It was noted that hemoglobin dropped from 9.9-9.1. Ferritin level continues to be low even on iron supplementation. Not she is scheduled to undergo IV iron infusions. In addition to that she is scheduled for her endoscopy colonoscopy on Tuesday. I did recommend she can talk to her senior cytotechnologist about a capsule endoscopy if nothing is found on her studies. We also again talked about her abnormal V/Q scan. the results were suggestive of the possibility of acute or chronic clot. Difficult to differentiate since a did not have the CTA available. I had looked at the CTA and felt strongly that there were all chronic clots. Although still suggesting that she is failing Eliquis. In view of the positive of acute on chronic clots will request a CTA to better address the abnormal V/Q scan findings. Also based on the fact the patient continues to be symptomatic. we did talk about the importance of considering a different anticoagulation agent. However, will have to wait until after she is further evaluated for the anemia as additional blood thinners may be potential problematic if they worsen her anemia. 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 will wait to see if she is consider. One option will be to consider vasodilators therapy for the patient to help her with the pulmonary hypertension. 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 She also continues use her oxygen. She finds that she is using her oxygen more often. 04/21/2023 the patient is here for preoperative evaluation. The patient overall is feeling better today. She has been using her oxygen with good effect. She is completing a course of prednisone. She has 3 more days. Her respiratory exam is indeed better without any significant wheezing which is reassuring. Right now I believe she is at her best from a respiratory status. She did undergo pulmonary function studies the in addition to an ABG. It appears that she does have a severe obstruction consistent with severe COPD which is very similar to her PFTs for the last 2 years. She also has a mild restriction and has a severe diffusion impairment hence the need for oxygen supplementation. Her blood work asthma is actually very reassuring with a normal pH the the and a pCO2 of 34.6 mmHg which is reassuring the the. The PO2 was 78 mmHg on her oxygen supplementation of 2 L. the patient also has been on Eliquis for the blood clots. She understands because she is high risk for further clot formation when she has surgery she will need to stop the Eliquis 3 days prior and ultimately start Lovenox 12 hours after stopping her Eliquis. We did talk about her risk regarding surgery. The patient does have severe respiratory disease and therefore she does have high risk for perioperative pulmonary complications which includes worsening hypoxia, atelectasis, pneumonia and also prolonged mechanical ventilation. At this point the patient is medically maximized from a respiratory status and there are no other alternative, only surgery. 07/28/2023 the patient is here for pulmonary follow-up visit. She has had a very eventful few months. She did undergo her bowel resection for the colon cancer and that was successful. The patient has been able to tolerate the Eliquis and seems like hemoglobins overall better. The iron and ferritin levels also normalized. She has having a lot of constipation so I did recommend she can stop the iron supplementation for now to see if that can improve her significant constipation. Also the patient was evaluated in [place] for her chronic thromboembolic disease and pulmonary hypertension. 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 however, during the angiogram apparently she went into cardiac arrest. I do not have the records at this time . the patient had to be defibrillated and she did stay in the hospital for 3 days. Now she has a Holter monitor. She was started on sildenafil which she will be starting the next day or so for her pulmonary hypertension. In the meantime she continues on the azithromycin and ethambutol for her mycobacterial disease. She was kept in the macrolide therapy. We have to make sure that she is tolerating the macrolide therapy with cardiac history. She did have an EKG in [place]. Will also make sure she has the referral with Cardiology locally as she had this very significant event. 10/14/2023 the patient is here for a pulmonary follow-up visit. Overall she has been doing better on the sildenafil. She is taking it 3 times a day. She has been able to have less shortness of breath. She is able to ambulate without the oxygen regularly which is referring. The patient has been having issues with weight loss. She will be seeing her oncologist soon regarding her lung cancer. The patient has been using the azithromycin in the rifampin for the treatment of the mycobacterial disease. At this point will continue the therapy. The patient has cough and chest congestion has improved significantly. The patient has underlying pulmonary nodules. She should have a repeat CT scan of the chest soon to address the nodular densities. the patient also continues on the anticoagulation therapy. She does tolerated well. No evidence of any active bleeding. [facility] Medical History (Updated 07/28/23 @ 13:56 by Bang Rocha MD) Cardiac arrest Chronic thromboembolic disease Anemia aplastic aregenerative Pulmonary hypertension Dyspnea Anemia Pulmonary emboli Chest pain Back pain of thoracolumbar region Nodule on liver Abnormal EKG Asthma-COPD overlap syndrome Hypoxia D-dimer, elevated Pulmonary nodules Mycobacterial disease Asthma Bronchiectasis Social History Household Members: Spouse Household Members Other:: Fili Patient Tobacco Use Status: Never used Tobacco Second Hand Smoke Exposure: No service: No Review of Systems Const Denies chills, Denies fever(s), Denies night sweats and Reports weight loss ENT Denies change in voice, Denies lip swelling, Denies mouth pain, Reports nasal congestion, Reports nasal discharge and Denies tongue swelling Card Denies chest pain and Reports dyspnea on exertion Resp Denies change in phlegm color, Denies chest congestion, Reports cough, Denies hemoptysis, Reports excessive phlegm production, Denies pain on inspiration, Denies pain with cough, Reports dyspnea on exertion and Denies wheezing GI Reports constipation and Reports nausea Musc Reports back pain Skin/Breast Denies rash Neuro Denies Neuro-related abnormal movements Psych Denies no additional complaints Jake/Lymph Denies easy bleeding and Denies lymphadenopathy Aller/Immun Denies lip swelling, Denies tongue swelling and Denies wheezing Physical Exam Vital Signs: Last Vital Signs Pulse 87 10/14/23 13:28 BP 122/64 10/14/23 13:28 Pulse Ox 94 10/14/23 13:28 Oxygen Delivery Method Room Air 10/14/23 13:28 BMI result Body Mass Index 19.1 Const General: alert Neck Neck: Yes normal visual inspection, Yes full ROM and Yes no lymphadenopathy Chest Chest palpation & inspection: normal inspection of the chest Resp Auscultation: no crackles, no rales, no rhonchi, no wheezes and diminished lung sounds Cardio Rate: regular rate Rhythm: regular rhythm Heart sounds: S1 normal heart sound present and S2 normal heart sound present GI Palpation (GI): Soft to palpation and nontender Auscultation: normal bowel sounds Skin General skin exam: rashes and/or lesions noted Extrem General: No clubbing, No cyanosis and Yes edema Assessment & Plan Assessment & Plan (1) Anemia: Code(s): D64.9 - Anemia, unspecified Qualifiers: Anemia type: iron deficiency Iron deficiency anemia type: chronic blood loss Qualified Code(s): D50.0 - Iron deficiency anemia secondary to blood loss (chronic) (2) Pulmonary hypertension: Code(s): I27.20 - Pulmonary hypertension, unspecified (3) Pulmonary embolism: Code(s): I26.99 - Other pulmonary embolism without acute cor pulmonale Qualifiers: Pulmonary embolism type: multiple subsegmental (without acute cor pulmonale) Qualified Code(s): I26.94 - Multiple subsegmental pulmonary emboli without acute cor pulmonale (4) Chronic thromboembolic disease: Code(s): I74.9 - Embolism and thrombosis of unspecified artery (5) Dyspnea: Code(s): R06.00 - Dyspnea, unspecified Qualifiers: Dyspnea type: dyspnea on exertion Qualified Code(s): R06.09 - Other forms of dyspnea (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, unspecified (7) Bronchiectasis: Code(s): J47.9 - Bronchiectasis, uncomplicated Qualifiers: Bronchiectasis type: uncomplicated Qualified Code(s): J47.9 - Bronchiectasis, uncomplicated (8) Pulmonary nodules: Code(s): R91.8 - Other nonspecific abnormal finding of lung field Plan Continue azithromycin/Ethambutol ANUSHA as needed CPT Bloodwork continue oxygen supplementation continue Revatio TID as per [facility] repeat ECHO pending at [facility] F/U wit Oncology CT chest at [facility], if she does not have it, then she will call so I can order one locally continue Eliquis F/U 3-4 months Orders: Orders Liver Panel 10/14/23 D64.9 - Anemia, unspecified, I27.20 - Pulmonary hypertension, unspecified, I74.9 - Embolism and thrombosis of unspecified artery, J47.9 - Bronchiectasis, uncomplicated Ferritin 10/14/23 D64.9 - Anemia, unspecified, I27.20 - Pulmonary hypertension, unspecified, I74.9 - Embolism and thrombosis of unspecified artery, J47.9 - Bronchiectasis, uncomplicated Complete Blood Count Auto Diff 10/14/23 D64.9 - Anemia, unspecified, I27.20 - Pulmonary hypertension, unspecified, I74.9 - Embolism and thrombosis of unspecified artery, J47.9 - Bronchiectasis, uncomplicated Basic Metabolic Panel 10/14/23 D64.9 - Anemia, unspecified, I27.20 - Pulmonary hypertension, unspecified, I74.9 - Embolism and thrombosis of unspecified artery, J47.9 - Bronchiectasis, uncomplicated TSH reflex Free T4 10/14/23 D64.9 - Anemia, unspecified, I27.20 - Pulmonary hypertension, unspecified, I74.9 - Embolism and thrombosis of unspecified artery, 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 - Bronchiectasis, uncomplicated Coding Level of Care Code Est Pt Level 4 (08243) Diagnoses Iron deficiency anemia due to chronic blood loss D50.0 Anemia type: iron deficiency Iron deficiency anemia type: chronic blood loss Pulmonary hypertension I27.20 Multiple subsegmental pulmonary emboli without acute cor pulmonale I26.94 Pulmonary embolism type: multiple subsegmental (without acute cor pulmonale) 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
[2023-10-14 13:28] VITALS: BP 122/64; PULSE 87; O2SAT 94; BMI 19.1
== END 2023-10-14 14:05 | disposition home or self-care (01) ==
PROVIDERS: PCP Internal Medicine; Visit Provider Hospitalist
DX: D50.0 Iron deficiency anemia secondary to blood loss (chronic) (principal); I27.20 Pulmonary hypertension, unspecified; I26.94 Multiple subsegmental thrombotic pulmonary emboli without acute cor pulmonale; I74.9 Embolism and thrombosis of unspecified artery; R06.09 Other forms of dyspnea; A31.9 Mycobacterial infection, unspecified; J47.9 Bronchiectasis, uncomplicated; R91.8 Other nonspecific abnormal finding of lung field
CPT/HCPCS: 99214

== ENCOUNTER → 2023-10-14 13:21 | Outpatient (BNVA) | payer MEDICARE, SELFPAY | PROVIDERS: PCP Internal Medicine; Visit Provider Hospitalist | DX: J44.9 Chronic obstructive pulmonary disease, unspecified (principal); J47.9 Bronchiectasis, uncomplicated; I27.20 Pulmonary hypertension, unspecified; I26.99 Other pulmonary embolism without acute cor pulmonale; I74.9 Embolism and thrombosis of unspecified artery; D64.9 Anemia, unspecified; C34.90 Malignant neoplasm of unspecified part of unspecified bronchus or lung; R06.09 Other forms of dyspnea; A31.9 Mycobacterial infection, unspecified; R91.8 Other nonspecific abnormal finding of lung field; Z79.01 Long term (current) use of anticoagulants | CPT/HCPCS: 99212 ==

== ENCOUNTER 2024-01-12 13:12 | Outpatient (AMB) | payer MEDICARE, SELFPAY ==
[2024-01-12 13:17] VITALS: PULSE 82; O2SAT 90; BMI 18.4
--- NOTE | 2024-01-12 13:17 | A.OFFVIS_ITS ---
Vital Signs 01/12/24 13:17 Height 5 ft 4 in Weight 107 lb BMI 18.4 Pulse 82 Pulse Source Pulse Oximeter Pulse Oximetry (%) 90 L Oxygen Delivery Method Room Air Intake Visit Reasons: COPD Box Printer Required: No Allergies codeine Adverse Reaction (Severe, Verified 01/12/24 13:18) Agitated Cipro Allergy (Severe, Uncoded 01/12/24 13:18) Rash HPI Comments Details: The patient is a 78-year-old woman with known history of bronchiectasis, COPD and also nontuberculous mycobacterial infection. She had been treated in the past for this condition. 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 Unfortunately she cannot tolerate quinolones nor THOR due to adverse reactions. She has been doing very well in the meantime. She continues to have shortness of breath with activity mild in severity. Also got worse when she did go up to the high altitudes. Also had productive cough off and on. She continues to use the flutter valve. She has also pulmonary nodules. She had a last CT scan of the chest back in March 2018 that we personally reviewed demonstrating stable pulmonary no 11/09/2021 the patient is here for a pulmonary follow-up visit. Overall the patient has been doing well. She has been participating in pulmonary rehab and has been staying active. She does use her oxygen with activity. This also has been helpful. She also continue with severe chest physical therapy. She does use a percussion vest and this may be affecting her back possibly resulting in some back pain. Patient also has evidence of significant scoliosis. She did undergo pulmonary function studies which was personally by me. It appears that her FVC, FEV1 and diffusing capacity are trending a little bit better. However, her total lung capacity slightly decreased although not significant. This may be multifactorial. But it may to some degree be due to her musculoskeletal issues. I will have her be evaluated by Physical therapy to see if they can provide her with some relief as far as her scoliosis and potentially lung expansion. However, she continues the back pain she also may have to decrease t he frequency on her percussion vest which could also be contributing to the pain. In the meantime she will continue participating in pulmonary rehabilitation. No changes on the medications at this time. She did have an EKG sometime in March and she did follow-up with cardiology after that. Will plan to repeat an EKG sometime in the fall 2021. 05/17/2022 the patient is here for pulmonary follow-up visit. Overall she continues to do well from a respiratory status. She continues on the azithromycin. She is using that 3 times a week for the treatment of mycobacterial lung disease. Patient understands that using medication by itself can result in resistance. She also continues to use the hypertonic saline for chest physical therapy. She continues to participate in pulmonary rehab which has been very effective beneficial for her. The only issue is that she still has a persistent cough. The cough for the most part is nonproductive in nature. Sometimes when she starts coughing she has a hard time stopping in therefore she has a hard time going to places like restoration or the gatherings where she becomes conscientious about her cough. We talked about different cough grissom ppressants use. Tessalon Perles may be effective however the probably will not be covered. She can also use cough medicine with codeine also in certain occasions where she is at home and not driving which she can take a small dose to help with suppress the cough. The patient has had also some pleuritic chest discomfort. Currently she she states that her symptoms have resolved. If her symptoms persist she is to get a chest x-ray. In the meantime she did have a CT scan of the chest back in June 2021 demonstrating pulmonary nodules and bronchiectatic changes. She is scheduled to have a repeat CT scan June of this year. During the visit the patient did have an EKG done demonstrating normal QTC. Although, her EKG is abnormal with a left bundle branch block and left axis deviation. I did give her a copy of the EKG. This left bundle branch block has been well documented in the past. 08/02/2022 the patient is here for a pulmonary follow-up visit. The patient has not been feeling well now for the last several months. However, she has further declining the last several weeks. Started developing worsening cough with chest congestion. Addition to increasing shortness of breath. She denies any fevers or chills. She denies any sick contacts. The phlegm is thicker and darker in color. Usually yellowish green. She has been taking the azithromycin 3 times a week and was working well for her. She did have a CT scan of the chest sometime in May 2022 which demonstrated the underlying bronchiectatic changes in the bronchiolitis. Relatively unchanged. In the office we were able to give her neb treatment with Xopenex and hypertonic saline. She was able to produce a sputum that was sent for culture and also AFB. In the meantime the patient does have some increased wheezing on examination so therefore will start her on a course of prednisone. She is reluctant to take high doses therefore I gave a small prednisone taper. She has responded well to Augmentin in the past therefore she will also start that. She has had history of Pseudomonas so therefore the patient understands that Pseudomonas would only be treated with quinolones and unfortunately she had a hard time tolerating quinolones in the past. Other options to treat Pseudomonas would be inhaled tobramycin or IV antibiotics if she were to worsen further. For now will just have to await the results of the culture. In meantime she is going to start the antibiotic therapy. 09/20/2022 the patient is here for a pulmonary follow-up visit. Overall she is feeling a lot better. She did complete the prednisone and also the Augmentin. Her sputum culture was positive for Haemophilus influenzae which was penicillin resistant. In addition to that her sputum culture was positive for mycobacterium speciaes. The she has been on the azithromycin 3 times a week. Therefore, explained to her that we are waiting for sensitivities. Clinically the patient is doing better so which is weight she get back the results. Based on the result will talk about any a mentation of the therapy that needs to be done in order to avoid progression of disease. The patient also has complaint of intermittent right-sided chest discomfort. Right now she feels better. She does not have it all the time. It is not reproducible. I did give her chest x- ray order for her to have it x-ray if her symptoms worsen or persist. The patient otherwise feels well and she will monitor closely. Her last CT scan was back in the fall 2021. Therefore will hopefully hold off to repeating the CAT scan of that time. I am hoping to be able to discuss this insipidus with her and decide on management before repeating the imaging. 11/30/2022 the patient is here for a pulmonary hospital follow-up visit. The patient recently came back from [place]. She was noted to have more shortness of breath and hypoxia. She required additional oxygen. Check call the office initially and our nurse triage recommend that she go to the ER. She did go to the ER here although she was subsequently discharged. Unclear the workup she had. She continued having difficulties with breathing. A week later she called again to the office and again will concerned because of the acute on chronic hypoxic respiratory failure airway recommended this time that she go to the [facility] ER. She went to the ER there quickly had a CT scan of the chest PE protocol demonstrating bilateral basilar pulmonary emboli. The patient also had extensive treating budding bronchiectasis due to mycobacterial disease. Therefore, she was started on Eliquis and was subsequently discharged. She the patient did not have an echocardiogram and did not have lower extremity Dopplers for reason. Patient feels a little better. Although she is still short of breath with activity. Cvus-ek-xsxqdsey severity. She has wondered if she is going to be able to get back to her baseline. The patient did have moderate amount of blood clot burden. Explained to her that this will take a couple months her to clear. In the meantime we need to address her mycobacterial disease. She did culture different organism still sensitive to the azithromycin. I am concerned that monotherapy will result in increased resistance specially with the exposure to other mycobacterial disease. The patient is willing to start ethambutol. She can not started 3 times a week and then increase the azithromycin to daily. If the patient can tolerate that regimen then she can increase the ethambutol to daily as well. On the combinat ion therapy we will plan to repeat her sputum in a couple months. Hopefully the cultures come back negative and we can decrease her regimen again to 3 times a week. In regards the blood clots the patient will have to get an echocardiogram and also a V/Q scan in a couple months to make sure there is complete clearance of her clot burden. She will continue with the Eliquis twice a day as prescrib ed at this time. 12/16/2022 the patient is here for sick visit. She has been experiencing worsening dyspnea on exertion for the last 1-2 weeks. Progressively getting worse. Denies any significant wheezing are productive cough. Denies any chest pains. He is mainly progressive dyspnea with any exertion. She has been using her oxygen more often. The patient did go for chest x-ray demonstrating his chronic airway disease. No evidence of any active disease. On examination she did not have any worsening wheezing or rhonchi. She has been taking her anticoagulation for the recent blood clots and that she has been taking with good adherence. She has not noticed any red blood in her urine or any black stools or any blood in the stools. The patient has been having increasing lower extremity edema. Also, reviewing her x-ray I do appreciate some haziness suggesting the possibility of increasing vascular congestion. Therefore you treatment with diuretics will be reasonable. The patient also undergo blood work. 01/13/2023 the patient is here for a pulmonary follow-up visit. Overall she is doing about the same. Still complaining of dyspnea on exertion. Her last hemoglobin was 7.5. She does have an appointment with Hematology today. The patient does have very low iron levels. It also very low ferritin level. This is likely aggravated by the starting of the anticoagulation. The patient will need to have this further evaluated. The anticoagulation she should continue likely indefinitely if she can tolerate it especially there was no significant bleeding. The patient did have an unprovoked event. She does have a GI doctor that she sees in the past and I do believe that she needs to go back for re- evaluation. I will put in referral at this time. The patient also is complaining of lower extremity swelling. She did respond well to the Lasix. She takes additional Lasix at this time. She also had an echocardiogram that was personally reviewed. The patient does have mild pulmonary hypertension that is likely contributing to the edema although not completely. She has also taken a calcium channel rosio that may also be contributing as well. The patient will take the Lasix for 3 days and movement in a low-sodium diet and will reassess. If she continues to have swelling she will call as far as the mycobacterial disease the patient is tolerating the macrolide and ethambutol on a daily basis. Her blood work was reassuring. She will continue taking the daily dose at this time since she can not tolerate it. Her cough is overall better new lungs are clear. Her CT scan did demonstrate significant tree in budding and bronchiectasis. She will need a repeat CT scan in the near future. 02/18/2023 the patient is here for a follow-up visit. Patient continues to have dyspnea on exertion. Moderate severity. The oxygen is partially helpful. She has been on all her respiratory therapy. The patient did undergo a V/Q scan in order to follow-up with her pulmonary emboli. I did get a critical call with the V/Q scan findings therefore I had her come in so we can discuss it. It appears that the V/Q scan still shows V/Q mismatches in the areas where she was documented to have blood clots back in October. Therefore the patient has not had significant improvement of the clot brought in after more than 3 months of therapy with Eliquis. Therefore, she is not responding to the anticoagulation. She did have an echocardiogram also in December demonstrating pulmonary hypertension likely from the result of the chronic thromboembolic disease. In the meantime she has been dealing with the issue with the anemia. She will be evaluated by GI soon regarding potential endoscopy to assess for any occult bleeding in view of the significant anemia while on the Eliquis. We did talk about alternative therapies for anticoagulation. Coumadin will be difficult in view of her antibiotic use for the mycobacterial disease. We also talked but injectables including Lovenox and doubt the parent. I did speak briefly with Hematology and they did agree that does to injectables would be reasonable. The dalteparin would be easier as it is only once a day. Fondaparinux is also as good option. I will make a referral to [place] [facility] [place] for furter evaluation. 03/17/2023 the patient is here for a pulmonary follow-up visit. She continues to have significant dyspnea on exertion. Has a hard time doing any activities outside of the house causing her to have significant fatigue the next day. She is having hard time. Recently was evaluated by Hematology. It was noted that hemoglobin dropped from 9.9-9.1. Ferritin level continues to be low even on iron supplementation. Not she is scheduled to undergo IV iron infusions. In addition to that she is scheduled for her endoscopy colonoscopy on Tuesday. I did recommend she can talk to her home health aide about a capsule endoscopy if nothing is found on her studies. We also again talked about her abnormal V/Q scan. the results were suggestive of the possibility of acute or chronic clot. Difficult to differentiate since a did not have the CTA available. I had looked at the CTA and felt strongly that there were all chronic clots. Although still suggesting that she is failing Eliquis. In view of the positive of acute on chronic clots will request a CTA to better address the abnormal V/Q scan findings. Also based on the fact the patient continues to be symptomatic. we did talk about the importance of considering a different anticoagulation agent. However, will have to wait until after she is further evaluated for the anemia as additional blood thinners may be potential problematic if they worsen her anemia. We have referred her to [place] to the Pulmonary hypertension Clinic based on the fact that she does have evidence of chronic thromboembolic disease resulting in pulmonary hypertension. will wait to see if she is consider. One option will be to consider vasodilators therapy for the patient to help her with the pulmonary hypertension. 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 She also continues use her oxygen. She finds that she is using her oxygen more often. 04/21/2023 the patient is here for preoperative evaluation. The patient overall is feeling better today. She has been using her oxygen with good effect. She is completing a course of prednisone. She has 3 more days. Her respiratory exam is indeed better without any significant wheezing which is reassuring. Right now I believe she is at her best from a respiratory status. She did undergo pulmonary function studies the in addition to an ABG. It appears that she does have a severe obstruction consistent with severe COPD which is very similar to her PFTs for the last 2 years. She also has a mild restriction and has a severe diffusion impairment hence the need for oxygen supplementation. Her blood work asthma is actually very reassuring with a normal pH the the and a pCO2 of 34.6 mmHg which is reassuring the the. The PO2 was 78 mmHg on her oxygen supplementation of 2 L. the patient also has been on Eliquis for the blood clots. She understands because she is high risk for further clot formation when she has surgery she will need to stop the Eliquis 3 days prior and ultimately start Lovenox 12 hours after stopping her Eliquis. We did talk about her risk regarding surgery. The patient does have severe respiratory disease and therefore she does have high risk for perioperative pulmonary complications which includes worsening hypoxia, atelectasis, pneumonia and also prolonged mechanical ventilation. At this point the patient is medically maximized from a respiratory status and there are no other alternative, only surgery. 07/28/2023 the patient is here for pulmonary follow-up visit. She has had a very eventful few months. She did undergo her bowel resection for the colon cancer and that was successful. The patient has been able to tolerate the Eliquis and seems like hemoglobins overall better. The iron and ferritin levels also normalized. She has having a lot of constipation so I did recommend she can stop the iron supplementation for now to see if that can improve her significant constipation. Also the patient was evaluated in [place] for her chronic thromboembolic disease and pulmonary hypertension. 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 however, during the angiogram apparently she went into cardiac arrest. I do not have the records at this time . the patient had to be defibrillated and she did stay in the hospital for 3 days. Now she has a Holter monitor. She was started on sildenafil which she will be starting the next day or so for her pulmonary hypertension. In the meantime she continues on the azithromycin and ethambutol for her mycobacterial disease. She was kept in the macrolide therapy. We have to make sure that she is tolerating the macrolide therapy with cardiac history. She did have an EKG in [place]. Will also make sure she has the referral with Cardiology locally as she had this very significant event. 10/14/2023 the patient is here for a pulmonary follow-up visit. Overall she has been doing better on the sildenafil. She is taking it 3 times a day. She has been able to have less shortness of breath. She is able to ambulate without the oxygen regularly which is referring. The patient has been having issues with weight loss. She will be seeing her oncologist soon regarding her lung cancer. The patient has been using the azithromycin in the rifampin for the treatment of the mycobacterial disease. At this point will continue the therapy. The patient has cough and chest congestion has improved significantly. The patient has underlying pulmonary nodules. She should have a repeat CT scan of the chest soon to address the nodular densities. the patient also continues on the anticoagulation therapy. She does tolerated well. No evidence of any active bleeding. 01/12/2024 the patient is here for a pulmonary follow-up visit. Since we last spoke unfortunately she was diagnosed with recurrence of her colon cancer. Now spread to the area of the perineum. The patient did start chemotherapy with in for medication cocktail. She does have a Port-A-Cath. She has been tolerating the chemo. Although she started developing a cough. The cough has been nonproductive in nature. Moderate severity. She continues on her anti mycobacterial therapy she also continues on her Eliquis. She also continues on her sildenafil for the pulmonary hypertension. Based on her chemo therapy agents I suspect that the worsening cough is likely an adverse effects from the chemo. Is fairly common. No significant congestion which is reassuring. Will try to simplify her medication regimen specially now that she is dealing with this new issue. In addition to that will place her on a low- dose prednisone taper to see if she develops any improvement. In the meantime will have her also start budesonide nebs that she can continue once she completes the prednisone. She should be using albuterol along with the budesonide twice a day. [facility] Medical History (Updated 01/12/24 @ 13:35 by Bang Rocha MD) Pneumonitis Cardiac arrest Chronic thromboembolic disease Anemia aplastic aregenerative Pulmonary hypertension Dyspnea Anemia Pulmonary emboli Chest pain Back pain of thoracolumbar region Nodule on liver Abnormal EKG Asthma-COPD overlap syndrome Hypoxia D-dimer, elevated Pulmonary nodules Mycobacterial disease Asthma Bronchiectasis Social History Household Members: Spouse Household Members Other:: Fili Patient Tobacco Use Status: Never used Tobacco Second Hand Smoke Exposure: No service: No Review of Systems Const Denies chills, Denies fever(s), Denies night sweats and Reports weight loss ENT Denies change in voice, Denies lip swelling, Denies mouth pain, Reports nasal congestion, Reports nasal discharge and Denies tongue swelling Card Denies chest pain and Reports dyspnea on exertion Resp Denies change in phlegm color, Denies chest congestion, Reports cough, Denies hemoptysis, Reports excessive phlegm production, Denies pain on inspiration, Denies pain with cough, Reports dyspnea on exertion and Denies wheezing GI Reports as per HPI and Reports nausea Musc Reports back pain and Reports tingling Skin/Breast Denies rash Neuro Denies Neuro-related abnormal movements, Reports tingling and Reports paresthesias Psych Denies no additional complaints Jake/Lymph Denies easy bleeding and Denies lymphadenopathy Aller/Immun Denies lip swelling, Denies tongue swelling and Denies wheezing Physical Exam Vital Signs: Last Vital Signs Pulse 82 01/12/24 13:17 Pulse Ox 90 L 01/12/24 13:17 Oxygen Delivery Method Room Air 01/12/24 13:17 BMI result Body Mass Index 18.4 Const General: alert Neck Neck: Yes normal visual inspection, Yes full ROM and Yes no lymphadenopathy Chest Chest palpation & inspection: normal inspection of the chest Resp Auscultation: no crackles, no rales, no rhonchi, wheezes and diminished lung sounds Cardio Rate: regular rate Rhythm: regular rhythm Heart sounds: S1 normal heart sound present and S2 normal heart sound present GI Palpation (GI): Soft to palpation and nontender Auscultation: normal bowel sounds Skin General skin exam: rashes and/or lesions noted Extrem General: No clubbing, No cyanosis and Yes edema Assessment & Plan Assessment & Plan (1) Anemia: Code(s): D64.9 - Anemia, unspecified Category: Medical Qualifiers: Anemia type: iron deficiency Iron deficiency anemia type: chronic blood loss Qualified Code(s): D50.0 - Iron deficiency anemia secondary to blood loss (chronic) (2) Pulmonary hypertension: Code(s): I27.20 - Pulmonary hypertension, unspecified Category: Medical (3) Pulmonary embolism: Code(s): I26.99 - Other pulmonary embolism without acute cor pulmonale Category: Medical Qualifiers: Pulmonary embolism type: multiple subsegmental (without acute cor pulmonale) Qualified Code(s): I26.94 - Multiple subsegmental pulmonary emboli without acute cor pulmonale (4) Chronic thromboembolic disease: Code(s): I74.9 - Embolism and thrombosis of unspecified artery Category: Medical (5) Dyspnea: Code(s): R06.00 - Dyspnea, unspecified Category: Medical Qualifiers: Dyspnea type: dyspnea on exertion Qualified Code(s): R06.09 - Other forms of dyspnea (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, unspecified Category: Medical (7) Bronchiectasis: Code(s): J47.9 - Bronchiectasis, uncomplicated Category: Medical Qualifiers: Bronchiectasis type: uncomplicated Qualified Code(s): J47.9 - Bronchiectasis, uncomplicated (8) Pulmonary nodules: Code(s): R91.8 - Other nonspecific abnormal finding of lung field Category: Medical (9) Pneumonitis: Code(s): J98.4 - Other disorders of lung Category: Medical Plan Continue azithromycin stop Ethambutol start Budesonide nebs BID increase albuterol nebs BID ANUSHA as needed continue oxygen supplementation continue Revatio TID as per [facility] F/U wit Oncology continue Eliquis CXR, consider CT chest F/U 3-4 months Orders: Orders XR chest 2V Today J98.4 - Other disorders of lung Medications: New budesonide 0.5 mg (2 mL) inhalation BID 120 mL 11RF 30 days J44.9 - Chronic obstructive pulmonary disease, unspecified prednisone PO daily; Take 2 tabs daily x 10 days, 1 tab daily x 10 days 30 tabs 0RF 20 days Coding Level of Care Code Est Pt Level 4 (25186) Diagnoses Iron deficiency anemia due to chronic blood loss D50.0 Anemia type: iron deficiency Iron deficiency anemia type: chronic blood loss Pulmonary hypertension I27.20 Multiple subsegmental pulmonary emboli without acute cor pulmonale I26.94 Pulmonary embolism type: multiple subsegmental (without acute cor pulmonale) 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
== END 2024-01-12 13:43 | disposition home or self-care (01) ==
PROVIDERS: PCP Internal Medicine; Visit Provider Hospitalist
DX: D50.0 Iron deficiency anemia secondary to blood loss (chronic) (principal); I27.20 Pulmonary hypertension, unspecified; I26.94 Multiple subsegmental thrombotic pulmonary emboli without acute cor pulmonale; I74.9 Embolism and thrombosis of unspecified artery; R06.09 Other forms of dyspnea; A31.9 Mycobacterial infection, unspecified; J47.9 Bronchiectasis, uncomplicated; R91.8 Other nonspecific abnormal finding of lung field; J98.4 Other disorders of lung
CPT/HCPCS: 99214

== ENCOUNTER → 2024-01-12 13:12 | Outpatient (BNVA) | payer MEDICARE, SELFPAY | PROVIDERS: PCP Internal Medicine; Visit Provider Hospitalist | DX: I27.20 Pulmonary hypertension, unspecified (principal); J98.4 Other disorders of lung; R06.09 Other forms of dyspnea; R91.8 Other nonspecific abnormal finding of lung field; A31.9 Mycobacterial infection, unspecified; I26.94 Multiple subsegmental thrombotic pulmonary emboli without acute cor pulmonale; I74.9 Embolism and thrombosis of unspecified artery; I46.9 Cardiac arrest, cause unspecified; J47.9 Bronchiectasis, uncomplicated; D50.0 Iron deficiency anemia secondary to blood loss (chronic) | CPT/HCPCS: 99212 ==

== ENCOUNTER 2024-03-30 11:12 | Outpatient (AMB) | payer MEDICARE, SELFPAY ==
--- NOTE | 2024-03-30 11:15 | A.OFFVIS_ITS ---
Vital Signs 03/30/24 11:16 Height 5 ft 3.5 in Weight 99 lb BMI 17.3 BP 128/70 Blood Pressure Location Rt brachial Position Sitting Pulse 88 Pulse Source Pulse Oximeter Pulse Oximetry (%) 90 L Oxygen Delivery Method Room Air Intake Visit Reasons: Cough prod with yellow Deck Mechanic Required: No Allergies codeine Adverse Reaction (Severe, Verified 03/30/24 11:20) Agitated Cipro Allergy (Severe, Uncoded 03/30/24 11:20) Rash HPI Comments Details: The patient is a 79-year-old woman with known history of bronchiectasis, COPD and also nontuberculous mycobacterial infection. She had been treated in the past for this condition. 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 Unfortunately she cannot tolerate quinolones nor THOR due to adverse reactions. She has been doing very well in the meantime. She continues to have shortness of breath with activity mild in severity. Also got worse when she did go up to the high altitudes. Also had productive cough off and on. She continues to use the flutter valve. She has also pulmonary nodules. She had a last CT scan of the chest back in March 2018 that we personally reviewed demonstrating stable pulmonary no 11/09/2021 the patient is here for a pulmonary follow-up visit. Overall the patient has been doing well. She has been participating in pulmonary rehab and has been staying active. She does use her oxygen with activity. This also has been helpful. She also continue with severe chest physical therapy. She does use a percussion vest and this may be affecting her back possibly resulting in some back pain. Patient also has evidence of significant scoliosis. She did undergo pulmonary function studies which was personally by me. It appears that her FVC, FEV1 and diffusing capacity are trending a little bit better. However, her total lung capacity slightly decreased although not significant. This may be multifactorial. But it may to some degree be due to her musculoskeletal issues. I will have her be evaluated by Physical therapy to see if they can provide her with some relief as far as her scoliosis and potentially lung expansion. However, she continues the back pain she also may have to decrease the frequency on her percussion vest which could also be contributing to the pain. In the meantime she will continue participating in pulmonary rehabilitation. No changes on the medications at this time. She did have an EKG sometime in March and she did follow-up with cardiology after that. Will plan to repeat an EKG sometime in the fall 2021. 05/17/2022 the patient is here for pulmonary follow-up visit. Overall she continues to do well from a respiratory status. She continues on the azithromycin. She is using that 3 times a week for the treatment of mycobacterial lung disease. Patient understands that using medication by itself can result in resistance. She also continues to use the hypertonic saline for chest physical therapy. She continues to participate in pulmonary rehab which has been very effective beneficial for her. The only issue is that she still has a persistent cough. The cough for the most part is nonproductive in nature. Sometimes when she starts coughing she has a hard time stopping in therefore she has a hard time going to places like oriental orthodox or the gatherings where she becomes conscientious about her cough. We talked about different cough suppressants use. Tessalon Perles may be effective however the probably will not be covered. She can also use cough medicine with codeine also in certain occasions where she is at home and not driving which she can take a small dose t o help with suppress the cough. The patient has had also some pleuritic chest discomfort. Currently she she states that her symptoms have resolved. If her symptoms persist she is to get a chest x-ray. In the meantime she did have a CT scan of the chest back in June 2021 demonstrating pulmonary nodules and bronchiectatic changes. She is scheduled to have a repeat CT scan June of this year. During the visit the patient did have an EKG done demonstrating normal QTC. Although, her EKG is abnormal with a left bundle branch block and left axis deviation. I did give her a copy of the EKG. This left bundle branch block has been well documented in the past. 08/02/2022 the patient is here for a pulmonary follow-up visit. The patient has not been feeling well now for the last several months. However, she has further declining the last several weeks. Started developing worsening cough with chest congestion. Addition to increasing shortness of breath. She denies any fevers or chills. She denies any sick contacts. The phlegm is thicker and darker in color. Usually yellowish green. She has been taking the azithromycin 3 times a week and was working well for her. She did have a CT scan of the chest sometime in May 2022 which demonstrated the underlying bronchiectatic changes in the bronchiolitis. Relatively unchanged. In the office we were able to give her neb treatment with Xopenex and hypertonic saline. She was able to produce a sputum that was sent for culture and also AFB. In the meantime the patient does have some increased wheezing on examin ation so therefore will start her on a course of prednisone. She is reluctant to take high doses therefore I gave a small prednisone taper. She has responded well to Augmentin in the past therefore she will also start that. She has had history of Pseudomonas so therefore the patient understands that Pseudomonas would only be treated with quinolones and unfortunately she had a hard time tolerating quinolones in the past. Other options to treat Pseudomonas would be inhaled tobramycin or IV antibiotics if she were to worsen further. For now will just have to await the results of the culture. In meantime she is going to start the antibiotic therapy. 09/20/2022 the patient is here for a pulmonary follow-up visit. Overall she is feeling a lot better. She did complete the prednisone and also the Augmentin. Her sputum culture was positive for Haemophilus influenzae which was penicillin resistant. In addition to that her sputum culture was positive for mycobacterium speciaes. The she has been on the azithromycin 3 times a week. Therefore, explained to her that we are waiting for sensitivities. Clinically the patient is doing better so which is weight she get back the results. Based on the result will talk about any a mentation of the therapy that needs to be done in order to avoid progression of disease. The patient also has complaint of intermittent right-sided chest discomfort. Right now she feels better. She does not have it all the time. It is not reproducible. I did give her chest x- ray order for her to have it x-ray if her symptoms worsen or persist. The patient otherwise feels well and she will monitor closely. Her last CT scan was back in the fall 2021. Therefore will hopefully hold off to repeating the CAT scan of that time. I am hoping to be able to discuss this insipidus with her and decide on management before repeating the imaging. 11/30/2022 the patient is here for a pulmonary hospital follow-up visit. The patient recently came back from [place]. She was noted to have more shortness of breath and hypoxia. She required additional oxygen. Check call the office initially and our nurse triage recommend that she go to the ER. She did go to the ER here although she was subsequently discharged. Unclear the workup she had. She continued having difficulties with breathing. A week later she called again to the office and again will concerned because of the acute on chronic hypoxic respiratory failure airway recommended this time that she go to the [facility] ER. She went to the ER there quickly had a CT scan of the chest PE protocol demonstrating bilateral basilar pulmonary emboli. The patient also had extensive treating budding bronchiectasis due to mycobacterial disease. Therefore, she was started on Eliquis and was subsequently discharged. She the patient did not have an echocardiogram and did not have lower extremity Dopplers for reason. Patient feels a little better. Although she is still short of breath with activity. [id number] severity. She has wondered if she is going to be able to get back to her baseline. The patient did have moderate amount of blood clot burden. Explained to her that this will take a couple months her to clear. In the meantime we need to address her mycobacterial disease. She did culture different organism still sensitive to the azithromycin. I am concerned that monotherapy will result in increased resistance specially with the exposure to other mycobacterial disease. The patient is willing to start ethambutol. She can not started 3 times a week and then increase the azithromycin to daily. If the patient can tolerate that regimen then she can increase the ethambutol to daily as well. On the combination therapy we will plan to repeat her sputum in a couple months. Hopefully the cultures come back negative and we can decrease her regimen again to 3 times a week. In regards the blood clots the patient will have to get an echocardiogram and also a V/Q scan in a couple months to make sure there is complete clearance of her clot burden. She will continue with the Eliquis twice a day as prescribed at this time. 12/16/2022 the patient is here for sick visit. She has been experiencing worsening dyspnea on exertion for the last 1-2 weeks. Progressively getting worse. Denies any significant wheezing are productive cough. Denies any chest pains. He is mainly progressive dyspnea with any exertion. She has been using her oxygen more often. The patient did go for chest x-ray demonstrating his chronic airway disease. No evidence of any active disease. On examination she did not have any worsening wheezing or rhonchi. She has been taking her anticoagulation for the recent blood clots and that she has been taking with good adherence. She has not noticed any red blood in her urine or any black stools or any blood in the stools. The patient has been having increasing lower extremity edema. Also, reviewing her x-ray I do appreciate some haziness suggesting the possibility of increasing vascular congestion. Therefore you treatment with diuretics will be reasonable. The patient also undergo blood work. 01/13/2023 the patient is here for a pulmonary follow-up visit. Overall she is doing about the same. Still complaining of dyspnea on exertion. Her last hemoglobin was 7.5. She does have an appointment with Hematology today. The patient does have very low iron levels. It also very low ferritin level. This is likely aggravated by the starting of the anticoagulation. The patient will need to have this further evaluated. The anticoagulation she should continue likely indefinitely if she can tolerate it especially there was no significant bleeding. The patient did have an unprovoked event. She does have a GI doctor that she sees in the past and I do believe that she needs to go back for re- evaluation. I will put in referral at this time. The patient also is complaining of lower extremity swelling. She did respond well to the Lasix. She takes additional Lasix at this time. She also had an echocardiogram that was personally reviewed. The patient does have mild pulmonary hypertension that is likely contributing to the edema although not completely. She has also taken a calcium channel rosio that may also be contributing as well. The patient will take the Lasix for 3 days and movement in a low-sodium diet and will reassess. If she continues to have swelling she will call as far as the mycobacterial disease the patient is tolerating the macrolide and ethambutol on a daily basis. Her blood work was reassuring. She will continue taking the daily dose at this time since she can not tolerate it. Her cough is overall better new lungs are clear. Her CT scan did demonstrate significant tree in budding and bronchiectasis. She will need a repeat CT scan in the near future. 02/18/2023 the patient is here for a follow-up visit. Patient continues to have dyspnea on exertion. Moderate severity. The oxygen is partially helpful. She has been on all her respiratory therapy. The patient did undergo a V/Q scan in order to follow-up with her pulmonary emboli. I did get a critical call with the V/Q scan findings therefore I had her come in so we can discuss it. It appears that the V/Q scan still shows V/Q mismatches in the areas where she was documented to have blood clots back in October. Therefore the patient has not had significant improvement of the clot brought in after more than 3 months of therapy with Eliquis. Therefore, she is not responding to the anticoagulation. She did have an echocardiogram also in December demonstrating pulmonary hypertension likely from the result of the chronic thromboembolic disease. In the meantime she has been dealing with the issue with the anemia. She will be evaluated by GI soon regarding potential endoscopy to assess for any occult bleeding in view of the significant anemia while on the Eliquis. We did talk about alternative therapies for anticoagulation. Coumadin will be difficult in view of her antibiotic use for the mycobacterial disease. We also talked but injectables including Lovenox and doubt the parent. I did speak briefly with Hematology and they did agree that does to injectables would be reasonable. The dalteparin would be easier as it is only once a day. Fondaparinux is also as good option. I will make a referral to the [facility] chronic thrombo-embolic disease clinic for furter evaluation. 03/17/2023 the patient is here for a pulmonary follow-up visit. She continues to have significant dyspnea on exertion. Has a hard time doing any activities outside of the house causing her to have significant fatigue the next day. She is having hard time. Recently was evaluated by Hematology. It was noted that hemoglobin dropped from 9.9-9.1. Ferritin level continues to be low even on iron supplementation. Not she is scheduled to undergo IV iron infusions. In addition to that she is scheduled for her endoscopy colonoscopy on Tuesday. I did recommend she can talk to her sharepoint application architect about a capsule endoscopy if nothing is found on her studies. We also again talked about her abnormal V/Q scan. the results were suggestive of the possibility of acute or chronic clot. Difficult to differentiate since a did not have the CTA available. I had looked at the CTA and felt strongly that there were all chronic clots. Although still suggesting that she is failing Eliquis. In view of the positive of acute on chronic clots will request a CTA to better address the abnormal V/Q scan findings. Also based on the fact the patient continues to be symptomatic. we did talk about the importance of considering a different anticoagulation agent. However, will have to wait until after she is further evaluated for the anemia as additional blood thinners may be potential problematic if they worsen her anemia. 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 will wait to see if she is consider. One option will be to consider vasodilators therapy for the patient to help her with the pulmonary hypertension. 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 She also continues use her oxygen. She finds that she is using her oxygen more often. 04/21/2023 the patient is here for preoperative evaluation. The patient overall is feeling better today. She has been using her oxygen with good effect. She is completing a course of prednisone. She has 3 more days. Her respiratory exam is indeed better without any significant wheezing which is reassuring. Right now I believe she is at her best from a respiratory status. She did undergo pulmonary function studies the in addition to an ABG. It appears that she does have a severe obstruction consistent with severe COPD which is very similar to her PFTs for the last 2 years. She also has a mild restriction and has a severe diffusion impairment hence the need for oxygen supplementation. Her blood work asthma is actually very reassuring with a normal pH the the and a pCO2 of 34.6 mmHg which is reassuring the the. The PO2 was 78 mmHg on her oxygen supplementation of 2 L. the patient also has been on Eliquis for the blood clots. She understands because she is high risk for further clot formation when she has surgery she will need to stop the Eliquis 3 days prior and ultimately start Lovenox 12 hours after stopping her Eliquis. We did talk about her risk regarding surgery. The patient does have severe respiratory disease and therefore she does have high risk for perioperative pulmonary complications which includes worsening hypoxia, atelectasis, pneumonia and also prolonged mechanical ventilation. At this point the patient is medically maximized from a respiratory status and there are no other alternative, only surgery. 07/28/2023 the patient is here for pulmonary follow-up visit. She has had a very eventful few months. She did undergo her bowel resection for the colon cancer and that was successful. The patient has been able to tolerate the Eliquis and seems like hemoglobins overall better. The iron and ferritin levels also normalized. She has having a lot of constipation so I did recommend she can stop the iron supplementation for now to see if that can improve her significant constipation. Also the patient was evaluated in [place] for her chronic thromboembolic disease and pulmonary hypertension. 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 however, during the angiogram apparently she went into cardiac arrest. I do not have the records at this time . the patient had to be defibrillated and she did stay in the hospital for 3 days. Now she has a Holter monitor. She was started on sildenafil which she will be starting the next day or so for her pulmonary hypertension. In the meantime she continues on the azithromycin and ethambutol for her mycobacterial disease. She was kept in the macrolide therapy. We have to make sure that she is tolerating the macrolide therapy with cardiac history. She did have an EKG in [place]. Will also make sure she has the referral with Cardiology locally as she had this very significant event. 10/14/2023 the patient is here for a pulmonary follow-up visit. Overall she has been doing better on the sildenafil. She is taking it 3 times a day. She has been able to have less shortness of breath. She is able to ambulate without the oxygen regularly which is referring. The patient has been having issues with weight loss. She will be seeing her oncologist soon regarding her lung cancer. The patient has been using the azithromycin in the rifampin for the treatment of the mycobacterial disease. At this point will continue the therapy. The patient has cough and chest congestion has improved significantly. The patient has underlying pulmonary nodules. She should have a repeat CT scan of the chest soon to address the nodular densities. the patient also continues on the anticoagulation therapy. She does tolerated well. No evidence of any active bleeding. 01/12/2024 the patient is here for a pulmonary follow-up visit. Since we last spoke unfortunately she was diagnosed with recurrence of her colon cancer. Now spread to the area of the perineum. The patient did start chemotherapy with in for medication cocktail. She does have a Port-A-Cath. She has been tolerating the chemo. Although she started developing a cough. The cough has been nonproductive in nature. Moderate severity. She continues on her anti mycobacterial therapy she also continues on her Eliquis. She also continues on her sildenafil for the pulmonary hypertension. Based on her chemotherapy agents I suspect that the worsening cough is likely an adverse effects from the chemo. Is fairly common. No significant congestion which is reassuring. Will try to simplify her medication regimen specially now that she is dealing with this new issue. In addition to that will place her on a low- dose prednisone taper to see if she develops any improvement. In the meantime will have her also start budesonide nebs that she can continue once she completes the prednisone. She should be using albuterol along with the budesonide twice a day. 03/30/2024 the patient is here for sick visit. She has had some difficu lty with her breathing and cough for the last several weeks. She called in a few times since she was given prescription antibiotics. She did complete a course of Augmentin and before that she had been on doxycycline. Still having significant issues with very tenacious green phlegm. Difficult to expectorate. The patient also feels weak and tired. she is also having significant dyspnea on exertion. She does have the oxygen available. She is on chemotherapy. Therefore, she does have a we can immune system. referring to get a sputum culture in the office. It appeared to be consistent with an enteric organisms. Will start him on Bactrim to treat her for potential stenotrophomonas. Unfortunately if Pseudomonas she can not tolerate quinolones and she also has not been able to tolerate inhaled tobramycin. Therefore, will send a sputum culture and await the results. The the patient does need IV antibiotics she may need to go to the hospital for failed outpatient therapy. [facility] Medical History (Updated 04/01/24 @ 23:03 by Bang Rocha MD) Pneumonitis Cardiac arrest Chronic thromboembolic disease Anemia aplastic aregenerative Pulmonary hypertension Dyspnea Anemia Pulmonary emboli Chest pain Back pain of thoracolumbar region Nodule on liver Abnormal EKG Asthma-COPD overlap syndrome Hypoxia D-dimer, elevated Pulmonary nodules Mycobacterial disease Asthma Bronchiectasis Social History Household Members: Spouse Household Members Other:: Fili Patient Tobacco Use Status: Never used Tobacco Second Hand Smoke Exposure: No service: No Review of Systems Const Denies chills, Denies fever(s), Denies night sweats and Reports weight loss ENT Denies change in voice, Denies lip swelling, Denies mouth pain, Reports nasal congestion, Reports nasal discharge and Denies tongue swelling Card Denies chest pain and Reports dyspnea on exertion Resp Reports change in phlegm color, Reports chest congestion, Reports cough, Denies hemoptysis, Reports excessive phlegm production, Denies pain on inspiration, Denies pain with cough, Reports dyspnea on exertion and Denies wheezing GI Reports as per HPI and Reports nausea Musc Reports back pain and Reports tingling Skin/Breast Denies rash Neuro Denies Neuro-related abnormal movements, Reports tingling and Reports paresthesias Psych Denies no additional complaints Jake/Lymph Denies easy bleeding and Denies lymphadenopathy Aller/Immun Denies lip swelling, Denies tongue swelling and Denies wheezing Physical Exam Vital Signs: Last Vital Signs Pulse 88 03/30/24 11:16 BP 128/70 03/30/24 11:16 Pulse Ox 90 L 03/30/24 11:16 Oxygen Delivery Method Room Air 03/30/24 11:16 BMI result Body Mass Index 17.3 Const General: alert Neck Neck: Yes normal visual inspection, Yes full ROM and Yes no lymphadenopathy Chest Chest palpation & inspection: normal inspection of the chest Resp Auscultation: no crackles, no rales, no rhonchi, wheezes and diminished lung sounds Cardio Rate: regular rate Rhythm: regular rhythm Heart sounds: S1 normal heart sound present and S2 normal heart sound present GI Palpation (GI): Soft to palpation and nontender Auscultation: normal bowel sounds Skin General skin exam: rashes and/or lesions noted Extrem General: No clubbing, No cyanosis and Yes edema Assessment & Plan Assessment & Plan (1) Bronchiectasis: Code(s): J47.9 - Bronchiectasis, uncomplicated Category: Medical Qualifiers: Bronchiectasis type: with acute lower respiratory infection Qualified Code(s): J47.0 - Bronchiectasis with acute lower respiratory infection (2) Pulmonary hypertension: Code(s): I27.20 - Pulmonary hypertension, unspecified Category: Medical (3) Pulmonary embolism: Code(s): I26.99 - Other pulmonary embolism without acute cor pulmonale Category: Medical Qualifiers: Pulmonary embolism type: multiple subsegmental (without acute cor pulmonale) Qualified Code(s): I26.94 - Multiple subsegmental pulmonary emboli without acute cor pulmonale (4) Chronic thromboembolic disease: Code(s): I74.9 - Embolism and thrombosis of unspecified artery Category: Medical (5) Dyspnea: Code(s): R06.00 - Dyspnea, unspecified Category: Medical Qualifiers: Dyspnea type: dyspnea on exertion Qualified Code(s): R06.09 - Other forms of dyspnea (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, unspecified Category: Medical (7) Anemia: Code(s): D64.9 - Anemia, unspecified Category: Medical Qualifiers: Anemia type: iron deficiency Iron deficiency anemia type: chronic blood loss Qualified Code(s): D50.0 - Iron deficiency anemia secondary to blood loss (chronic) (8) Pulmonary nodules: Code(s): R91.8 - Other nonspecific abnormal finding of lung field Category: Medical Plan Continue azithromycin stop Ethambutol Budesonide nebs BID albuterol nebs BID ANUSHA as needed continue oxygen supplementation continue Revatio TID as per [facility] F/U wit Oncology continue Eliquis sputum cx start Bactrim DS F/U 1 months Orders: Orders Sputum Cult + Gram stain 03/30/24 A31.9 - Mycobacterial infection, unspecified, J47.9 - Bronchiectasis, uncomplicated Acid-fast Culture + Smear 03/30/24 A31.9 - Mycobacterial infection, unspecified, J47.9 - Bronchiectasis, uncomplicated Medications: New sulfamethoxazole-trimethoprim 800-160 mg (Bactrim DS) 1 tab PO BID 42 tabs 0RF 21 days Coding Level of Care Code Est Pt Level 5 (75567) Complex EM visit Add On G2211 Diagnoses Bronchiectasis with acute lower respiratory infection J47.0 Bronchiectasis type: with acute lower respiratory infection Pulmonary hypertension I27.20 Multiple subsegmental pulmonary emboli without acute cor pulmonale I26.94 Pulmonary embolism type: multiple subsegmental (without acute cor pulmon german) Chronic thromboembolic disease I74.9 Dyspnea on exertion R06.09 Dyspnea type: dyspnea on exertion 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
[2024-03-30 11:16] VITALS: BP 128/70; PULSE 88; O2SAT 90; BMI 17.3
== END 2024-03-30 11:57 | disposition home or self-care (01) ==
PROVIDERS: PCP Internal Medicine; Visit Provider Hospitalist
DX: J47.0 Bronchiectasis with acute lower respiratory infection (principal); I27.20 Pulmonary hypertension, unspecified; I26.94 Multiple subsegmental thrombotic pulmonary emboli without acute cor pulmonale; I74.9 Embolism and thrombosis of unspecified artery; R06.09 Other forms of dyspnea; A31.9 Mycobacterial infection, unspecified; D50.0 Iron deficiency anemia secondary to blood loss (chronic); R91.8 Other nonspecific abnormal finding of lung field
CPT/HCPCS: 99214; G2211

== ENCOUNTER 2024-03-30 11:12 | Outpatient (REF) | payer MEDICARE, SELFPAY | END 2024-03-30 11:13 | disposition home or self-care (01) | LOC: HO.LNP 11:12 | PROVIDERS: PCP Internal Medicine; Visit Provider Hospitalist | DX: J44.9 Chronic obstructive pulmonary disease, unspecified (principal); J47.0 Bronchiectasis with acute lower respiratory infection; A31.9 Mycobacterial infection, unspecified; R05.9 Cough, unspecified; I27.20 Pulmonary hypertension, unspecified; I26.94 Multiple subsegmental thrombotic pulmonary emboli without acute cor pulmonale; I74.9 Embolism and thrombosis of unspecified artery; R06.09 Other forms of dyspnea; D50.0 Iron deficiency anemia secondary to blood loss (chronic); R91.8 Other nonspecific abnormal finding of lung field | CPT/HCPCS: 87070; 87077; 87116; 87205; 87206; 99212 ==

== ENCOUNTER 2024-04-26 10:18 | Outpatient (AMB) | payer MEDICARE, SELFPAY ==
[2024-04-26 10:41] VITALS: BP 118/60; PULSE 84; O2SAT 94; BMI 17.7
--- NOTE | 2024-04-26 10:41 | A.OFFVIS_ITS ---
Vital Signs 04/26/24 10:41 Height 5 ft 3.5 in Weight 101 lb 6.602 oz BMI 17.7 BP 118/60 Blood Pressure Location Lt brachial Position Sitting Pulse 84 Pulse Source Pulse Oximeter Pulse Oximetry (%) 94 Oxygen Delivery Method Room Air Intake Visit Reasons: Pulm HTN/Bronchiectasis Varnish Remover Required: No Allergies codeine Adverse Reaction (Severe, Verified 04/26/24 10:44) Agitated Cipro Allergy (Severe, Uncoded 04/26/24 10:44) Rash HPI Comments Details: The patient is a 79-year-old woman with known history of bronchiectasis, COPD and also nontuberculous mycobacterial infection. She had been treated in the past for this condition. 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 Unfortunately she cannot tolerate quinolones nor THOR due to adverse reactions. She has been doing very well in the meantime. She continues to have shortness of breath with activity mild in severity. Also got worse when she did go up to the high altitudes. Also had productive cough off and on. She continues to use the flutter valve. She has also pulmonary nodules. She had a last CT scan of the chest back in March 2018 that we personally reviewed demonstrating stable pulmonary no 11/09/2021 the patient is here for a pulmonary follow-up visit. Overall the patient has been doing well. She has been participating in pulmonary rehab and has been staying active. She does use her oxygen with activity. This also has been helpful. She also continue with severe chest physical therapy. She does use a percussion vest and this may be affecting her back possibly resulting in some back pain. Patient also has evidence of significant scoliosis. She did undergo pulmonary function studies which was personally by me. It appears that her FVC, FEV1 and diffusing capacity are trending a little bit better. However, her total lung capacity slightly decreased although not significant. This may be multifactorial. But it may to some degree be due to her musculoskeletal issues. I will have her be evaluated by Physical therapy to see if they can provide her with some relief as far as her scoliosis and potentially lung expansion. However, she continues the back pain she also may have to decrease the frequency on her percussion vest which could also be contributing to the pain. In the meantime she will continue participating in pulmonary rehabilitation. No changes on the medications at this time. She did have an EKG sometime in March and she did follow-up with cardiology after that. Will plan to repeat an EKG sometime in the fall 2021. 05/17/2022 the patient is here for pulmonary follow-up visit. Overall she continues to do well from a respiratory status. She continues on the azithromycin. She is using that 3 times a week for the treatment of mycobacterial lung disease. Patient understands that using medication by itself can result in resistance. She also continues to use the hypertonic saline for chest physical therapy. She continues to participate in pulmonary rehab which has been very effective beneficial for her. The only issue is that she still has a persistent cough. The cough for the most part is nonproductive in nature. Sometimes when she starts coughing she has a hard time stopping in therefore she has a hard time going to places like orthodoxy or the gatherings where she becomes conscientious about her cough. We talked about different cough suppressants use. Tessalon Perles may be effective however the probably will not be covered. She can also use cough medicine with codeine also in certain occasions where she is at home and not driving which she can take a small dose to help with suppress the cough. The patient has had also some pleuritic chest discomfort. Currently she she states that her symptoms have resolved. If her symptoms persist she is to get a chest x-ray. In the meantime she did have a CT scan of the chest back in June 2021 demonstrating pulmonary nodules and bronchiectatic changes. She is scheduled to have a repeat CT scan June of this year. During the visit the patient did have an EKG done demonstrating normal QTC. Although, her EKG is abnormal with a left bundle branch block and left axis deviation. I did give her a copy of the EKG. This left bundle branch block has been well documented in the past. 08/02/2022 the patient is here for a pulmonary follow-up visit. The patient has not been feeling well now for the last several months. However, she has further declining the last several weeks. Started developing worsening cough with chest congestion. Addition to increasing shortness of breath. She denies any fevers or chills. She denies any sick contacts. The phlegm is thicker and darker in color. Usually yellowish green. She has been taking the azithromycin 3 times a week and was working well for her. She did have a CT scan of the chest sometime in May 2022 which demonstrated the underlying bronchiectatic changes in the bronchiolitis. Relatively unchanged. In the office we were able to give her neb treatment with Xopenex and hypertonic saline. She was able to produce a sputum that was sent for culture and also AFB. In the meantime the patient does have some increased wheezing on examination so therefore will start her on a course of prednisone. She is reluctant to take high doses therefore I gave a small prednisone taper. She has responded well to Augmentin in the past therefore she will also start that. She has had history of Pseudomonas so therefore the patient understands that Pseudomonas would only be treated with quinolones and unfortunately she had a hard time tolerating quinolones in the past. Other options to treat Pseudomonas would be inhaled tobramycin or IV antibiotics if she were to worsen further. For now will just have to await the results of the culture. In meantime she is going to start the antibiotic therapy. 09/20/2022 the patient is here for a pulmonary follow-up visit. Overall she is feeling a lot better. She did complete the prednisone and also the Augmentin. Her sputum culture was positive for Haemophilus influenzae which was penicillin resistant. In addition to that her sputum culture was positive for mycobacterium speciaes. The she has been on the azithromycin 3 times a week. Therefore, explained to her that we are waiting for sensitivities. Clinically the patient is doing better so which is weight she get back the results. Based on the result will talk about any a mentation of the therapy that needs to be done in order to avoid progression of disease. The patient also has complaint of intermittent right-sided chest discomfort. Right now she feels better. She does not have it all the time. It is not reproducible. I did give her chest x- ray order for her to have it x-ray if her symptoms worsen or persist. The patient otherwise feels well and she will monitor closely. Her last CT scan was back in the fall 2021. Therefore will hopefully hold off to repeating the CAT scan of that time. I am hoping to be able to discuss this insipidus with her and decide on management before repeating the imaging. 11/30/2022 the patient is here for a pulmonary hospital follow-up visit. The patient recently came back from [place]. She was noted to have more shortness of breath and hypoxia. She required additional oxygen. Check call the office initially and our nurse triage recommend that she go to the ER. She did go to the ER here although she was subsequently discharged. Unclear the workup she had. She continued having difficulties with breathing. A week later she called again to the office and again will concerned because of the acute on chronic hypoxic respiratory failure airway recommended this time that she go to the [facility] ER. She went to the ER there quickly had a CT scan of the chest PE protocol demonstrating bilateral basilar pulmonary emboli. The patient also had extensive treating budding bronchiectasis due to mycobacterial disease. Therefore, she was started on Eliquis and was subsequently discharged. She the patient did not have an echocardiogram and did not have lower extremity Dopplers for reason. Patient feels a little better. Although she is still short of breath with activity. Lopo-tf-sfzigrum severity. She has wondered if she is going to be able to get back to her baseline. The patient did have moderate amount of blood clot burden. Explained to her that this will take a couple months her to clear. In the meantime we need to address her mycobacterial disease. She did culture different organism still sensitive to the azithromycin. I am concerned that monotherapy will result in increased resistance specially with the exposure to other mycobacterial disease. The patient is willing to start ethambutol. She can not started 3 times a week and then increase the azithromycin to daily. If the patient can tolerate that regimen then she can increase the ethambutol to daily as well. On the combination therapy we will plan to repeat her sputum in a couple months. Hopefully the cultures come back negative and we can decrease her regimen again to 3 times a week. In regards the blood clots the patient will have to get an echocardiogram and also a V/Q scan in a couple months to make sure there is complete clearance of her clot burden. She will continue with the Eliquis twice a day as prescribed at this time. 12/16/2022 the patient is here for sick visit. She has been experiencing worsening dyspnea on exertion for the last 1-2 weeks. Progressively getting worse. Denies any significant wheezing are productive cough. Denies any chest pains. He is mainly progressive dyspnea with any exertion. She has been using her oxygen more often. The patient did go for chest x-ray demonstrating his chronic airway disease. No evidence of any active disease. On examination she did not have any worsening wheezing or rhonchi. She has been taking her anticoagulation for the recent blood clots and that she has been taking with good adherence. She has not noticed any red blood in her urine or any black stools or any blood in the stools. The patient has been having increasing lower extremity edema. Also, reviewing her x-ray I do appreciate some haziness suggesting the possibility of increasing vascular congestion. Therefore you treatment with diuretics will be reasonable. The patient also undergo blood work. 01/13/2023 the patient is here for a pulmonary follow-up visit. Overall she is doing about the same. Still complaining of dyspnea on exertion. Her last hemoglobin was 7.5. She does have an appointment with Hematology today. The patient does have very low iron levels. It also very low ferritin level. This is likely aggravated by the starting of the anticoagulation. The patient will need to have this further evaluated. The anticoagulation she should continue likely indefinitely if she can tolerate it especially there was no significant bleeding. The patient did have an unprovoked event. She does have a GI doctor that she sees in the past and I do believe that she needs to go back for re- evaluation. I will put in referral at this time. The patient also is complaining of lower extremity swelling. She did respond well to the Lasix. She takes additional Lasix at this time. She also had an echocardiogram that was personally reviewed. The patient does have mild pulmonary hypertension that is likely contributing to the edema although not completely. She has also taken a calcium channel rosio that may also be contributing as well. The patient will take the Lasix for 3 days and movement in a low-sodium diet and will reassess. If she continues to have swelling she will call as far as the mycobacterial disease the patient is tolerating the macrolide and ethambutol on a daily basis. Her blood work was reassuring. She will continue taking the daily dose at this time since she can not tolerate it. Her cough is overall better new lungs are clear. Her CT scan did demonstrate significant tree in budding and bronchiectasis. She will need a repeat CT scan in the near future. 02/18/2023 the patient is here for a follow-up visit. Patient continues to have dyspnea on exertion. Moderate severity. The oxygen is partially helpful. She has been on all her respiratory therapy. The patient did undergo a V/Q scan in order to follow-up with her pulmonary emboli. I did get a critical call with the V/Q scan findings therefore I had her come in so we can discuss it. It appears that the V/Q scan still shows V/Q mismatches in the areas where she was documented to have blood clots back in October. Therefore the patient has not had significant improvement of the clot brought in after more than 3 months of therapy with Eliquis. Therefore, she is not responding to the anticoagulation. She did have an echocardiogram also in December demonstrating pulmonary hypertension likely from the result of the chronic thromboembolic disease. In the meantime she has been dealing with the issue with the anemia. She will be evaluated by GI soon regarding potential endoscopy to assess for any occult bleeding in view of the significant anemia while on the Eliquis. We did talk about alternative therapies for anticoagulation. Coumadin will be difficult in view of her antibiotic use for the mycobacterial disease. We also talked but injectables including Lovenox and doubt the parent. I did speak briefly with Hematology and they did agree that does to injectables would be reasonable. The dalteparin would be easier as it is only once a day. Fondaparinux is also as good option. I will make a referral to the [facility] chronic thrombo-embolic disease clinic for furter evaluation. 03/17/2023 the patient is here for a pulmonary follow-up visit. She continues to have significant dyspnea on exertion. Has a hard time doing any activities outside of the house causing her to have significant fatigue the next day. She is having hard time. Recently was evaluated by Hematology. It was noted that hemoglobin dropped from 9.9-9.1. Ferritin level continues to be low even on iron supplementation. Not she is scheduled to undergo IV iron infusions. In addition to that she is scheduled for her endoscopy colonoscopy on Tuesday. I did recommend she can talk to her filenet p8 developer about a capsule endoscopy if nothing is found on her studies. We also again talked about her abnormal V/Q scan. the results were suggestive of the possibility of acute or chronic clot. Difficult to differentiate since a did not have the CTA available. I had looked at the CTA and felt strongly that there were all chronic clots. Although still suggesting that she is failing Eliquis. In view of the positive of acute on chronic clots will request a CTA to better address the abnormal V/Q scan findings. Also based on the fact the patient continues to be symptomatic. we did talk about the importance of considering a different anticoagulation agent. However, will have to wait until after she is further evaluated for the anemia as additional blood thinners may be potential problematic if they worsen her anemia. We have referred her to [place] to the Pulmonary hypertension Clinic based on the fact that she does have evidence of chronic thromboembolic disease resulting in pulmonary hypertension. will wait to see if she is consider. One option will be to consider vasodilators therapy for the patient to help her with the pulmonary hypertension. 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 She also continues use her oxygen. She finds that she is using her oxygen more often. 04/21/2023 the patient is here for preoperative evaluation. The patient overall is feeling better today. She has been using her oxygen with good effect. She is completing a course of prednisone. She has 3 more days. Her respiratory exam is indeed better without any significant wheezing which is re assuring. Right now I believe she is at her best from a respiratory status. She did undergo pulmonary function studies the in addition to an ABG. It appears that she does have a severe obstruction consistent with severe COPD which is very similar to her PFTs for the last 2 years. She also has a mild restriction and has a severe diffusion impairment hence the need for oxygen supplementation. Her blood work asthma is actually very reassuring with a normal pH the the and a pCO2 of 34.6 mmHg which is reassuring the the. The PO2 was 78 mmHg on her oxygen supplementation of 2 L. the patient also has been on Eliquis for the blood clots. She understands because she is high risk for further clot formation when she has surgery she will need to stop the Eliquis 3 days prior and ultimately start Lovenox 12 hours after stopping her Eliquis. We did talk about her risk regarding surgery. The patient does have severe respiratory disease and therefore she does have high risk for perioperative pulmonary complications which includes worsening hypoxia, atelectasis, pneumonia and also prolonged mechanical ventilation. At this point the patient is medically maximized from a respiratory status and there are no other alternative, only surgery. 07/28/2023 the patient is here for pulmonary follow-up visit. She has had a very eventful few months. She did undergo her bowel resection for the colon cancer and that was successful. The patient has been able to tolerate the Eliquis and seems like hemoglobins overall better. The iron and ferritin levels also normalized. She has having a lot of constipation so I did recommend she can stop the iron supplementation for now to see if that can improve her significant constipation. Also the patient was evaluated in [place] for her c hronic thromboembolic disease and pulmonary hypertension. 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 however, during the angiogram apparently she went into cardiac arrest. I do not have the records at this time . the patient had to be defibrillated and she did stay in the hospital for 3 days. Now she has a Holter monitor. She was started on sildenafil which she will be starting the next day or so for her pulmonary hypertension. In the meantime she continues on the azithromycin and ethambutol for her mycobacterial disease. She was kept in the macrolide therapy. We have to make sure that she is tolerating the macrolide therapy with cardiac history. She did have an EKG in [place]. Will also make sure she has the referral with Cardiology locally as she had this very significant event. 10/14/2023 the patient is here for a pulmonary follow-up visit. Overall she has been doing better on the sildenafil. She is taking it 3 times a day. She has been able to have less shortness of breath. She is able to ambulate without the oxygen regularly which is referring. The patient has been having issues with weight loss. She will be seeing her oncologist soon regarding her lung cancer. The patient has been using the azithromycin in the rifampin for the treatment of the mycobacterial disease. At this point will continue the therapy. The patient has cough and chest congestion has improved significantly. The patient has underlying pulmonary nodules. She should have a repeat CT scan of the chest soon to address the nodular densities. the patient also continues on the anticoagulation therapy. She does tolerated well. No evidence of any active bleeding. 01/12/2024 the patient is here for a pulmonary follow-up visit. Since we last spoke unfortunately she was diagnosed with recurrence of her colon cancer. Now spread to the area of the perineum. The patient did start chemotherapy with in for medication cocktail. She does have a Port-A-Cath. She has been tolerating the chemo. Although she started developing a cough. The cough has been nonproductive in nature. Moderate severity. She continues on her anti mycobacterial therapy she also continues on her Eliquis. She also continues on her sildenafil for the pulmonary hypertension. Based on her chemotherapy agents I suspect that the worsening cough is likely an adverse effects from the chemo. Is fairly common. No significant congestion which is reassuring. Will try to simplify her medication regimen specially now that she is dealing with this new issue. In addition to that will place her on a low- dose prednisone taper to see if she develops any improvement. In the meantime will have her also start budesonide nebs that she can continue once she completes the prednisone. She should be using albuterol along with the budesonide twice a day. 03/30/2024 the patient is here for sick visit. She has had some difficulty with her breathing and cough for the last several weeks. She called in a few times since she was given prescription antibiotics. She did complete a course of Augmentin and before that she had been on doxycycline. Still having significant issues with very tenacious green phlegm. Difficult to expectorate. The patient also feels weak and tired. she is also having significant dyspnea on exertion. She does have the oxygen available. She is on chemotherapy. Therefore, she does have a we can immune system. referring to get a sputum culture in the office. It appeared to be consistent with an enteric organisms. Will start him on Bactrim to treat her for potential stenotrophomonas. Unfortunately if Pseudomonas she can not tolerate quinolones and she also has not been able to tolerate inhaled tobramycin. Therefore, will send a sputum culture and await the results. The the patient does need IV antibiotics she may need to go to the hospital for failed outpatient therapy. 04/26/2024 the patient is here for a pulmonary follow-up visit. Since we last spoke she did have a sputum culture sent positive for stenotrophomonas. She was placed on Bactrim. Seems to be tolerating that well. Although the Bactrim does make a little bit dizzy. Also when she takes the Revatio that makes her dizzy as well. She did have a recent echocardiogram demonstrating only mild pulmonary hypertension which is reassuring. Therefore will go ahead and try to decrease her adverse effects by decreasing the amount of medication where she can decrease the fascial to twice a day and also decrease the Bactrim just once a day. She will continue with the therapy though. The patient continues with respiratory therapy with good effect. And she continues on the azithromycin for the mycobacterial disease. She continues on chemotherapy infusions and she is tolerating that well as well. No recent imaging to review. Will follow-up in 3 months. If she develops any issues prior to that she will call for an earlier assessment. [facility] Medical History (Updated 04/01/24 @ 23:03 by Bang Rocha MD) Pneumonitis Cardiac arrest Chronic thromboembolic disease Anemia aplastic aregenerative Pulmonary hypertension Dyspnea Anemia Pulmonary emboli Chest pain Back pain of thoracolumbar region Nodule on liver Abnormal EKG Asthma-COPD overlap syndrome Hypoxia D-dimer, elevated Pulmonary nodules Mycobacterial disease Asthma Bronchiectasis Social History Household Members: Spouse Household Members Other:: Fili Patient Tobacco Use Status: Never used Tobacco Second Hand Smoke Exposure: No service: No Review of Systems Const Denies chills, Denies fever(s), Denies night sweats and Reports weight loss ENT Denies change in voice, Reports dizziness, Denies lip swelling, Denies mouth pain, Reports nasal congestion, Reports nasal discharge and Denies tongue swelling Card Denies chest pain and Reports dyspnea on exertion Resp Denies change in phlegm color, Denies chest congestion, Reports cough, Denies hemoptysis, Reports excessive phlegm production, Denies pain on inspiration, Denies pain with cough, Reports dyspnea on exertion and Denies wheezing GI Reports as per HPI and Reports nausea Musc Reports back pain and Reports tingling Skin/Breast Denies rash Neuro Denies Neuro-related abnormal movements, Reports dizziness, Reports tingling and Reports paresthesias Psych Denies no additional complaints Jake/Lymph Denies easy bleeding and Denies lymphadenopathy Aller/Immun Denies lip swelling, Denies tongue swelling and Denies wheezing Physical Exam Vital Signs: Last Vital Signs Pulse 84 04/26/24 10:41 BP 118/60 04/26/24 10:41 Pulse Ox 94 04/26/24 10:41 Oxygen Delivery Method Room Air 04/26/24 10:41 BMI result Body Mass Index 17.7 Const General: alert Neck Neck: Yes normal visual inspection, Yes full ROM and Yes no lymphadenopathy Chest Chest palpation & inspection: normal inspection of the chest Resp Effort & Inspection: normal respiratory effort Auscultation: no crackles, no rales, no rhonchi, no wheezes and diminished lung sounds Cardio Rate: regular rate Rhythm: regular rhythm Heart sounds: S1 normal heart sound present and S2 normal heart sound present GI Palpation (GI): Soft to palpation and nontender Auscultation: normal bowel sounds Skin General skin exam: rashes and/or lesions noted Extrem General: No clubbing, No cyanosis and Yes edema Results Reviewed Results Reviewed: personally reviewed ECHO with +pulmonary HTN microbiology +stenotrophomonas Assessment & Plan Assessment & Plan (1) Bronchiectasis: Code(s): J47.9 - Bronchiectasis, uncomplicated Category: Medical Qualifiers: Bronchiectasis type: with acute lower respiratory infection Qualified C ode(s): J47.0 - Bronchiectasis with acute lower respiratory infection (2) Pulmonary hypertension: Code(s): I27.20 - Pulmonary hypertension, unspecified Category: Medical (3) Pulmonary embolism: Code(s): I26.99 - Other pulmonary embolism without acute cor pulmonale Category: Medical Qualifiers: Pulmonary embolism type: multiple subsegmental (without acute cor pulmonale) Qualified Code(s): I26.94 - Multiple subsegmental pulmonary emboli without acute cor pulmonale (4) Chronic thromboembolic disease: Code(s): I74.9 - Embolism and thrombosis of unspecified artery Category: Medical (5) Dyspnea: Code(s): R06.00 - Dyspnea, unspecified Category: Medical Qualifiers: Dyspnea type: dyspnea on exertion Qualified Code(s): R06.09 - Other forms of dyspnea (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, unspecified Category: Medical (7) Anemia: Code(s): D64.9 - Anemia, unspecified Category: Medical Qualifiers: Anemia type: iron deficiency Iron deficiency anemia type: chronic blood loss Qualified Code(s): D50.0 - Iron deficiency anemia secondary to blood loss (chronic) (8) Pulmonary nodules: Code(s): R91.8 - Other nonspecific abnormal finding of lung field Category: Medical Plan Continue azithromycin continue bactrim, decrease to daily Budesonide nebs BID albuterol nebs BID ANUSHA as needed continue oxygen supplementation continue Revatio TID, ok to decrease to BID due to dizziness F/U wit Oncology continue Eliquis start Bactrim DS F/U 3-4 months Coding Level of Care Code Tele New Pt Level 5 ([id number]) Complex EM visit Add On [id number] Diagnoses Bronchiectasis with acute lower respiratory infection J47.0 Bronchiectasis type: with acute lower respiratory infection Pulmonary hypertension I27.20 Multiple subsegmental pulmonary emboli without acute cor pulmonale I26.94 Pulmonary embolism type: multiple subsegmental (without acute cor pulmonale) Chronic thromboembolic disease I74.9 Dyspnea on exertion R06.09 Dyspnea type: dyspnea on exertion 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
== END 2024-04-26 11:04 | disposition home or self-care (01) ==
PROVIDERS: PCP Internal Medicine; Visit Provider Hospitalist
DX: J47.0 Bronchiectasis with acute lower respiratory infection (principal); I27.20 Pulmonary hypertension, unspecified; I26.94 Multiple subsegmental thrombotic pulmonary emboli without acute cor pulmonale; I74.9 Embolism and thrombosis of unspecified artery; A31.9 Mycobacterial infection, unspecified; D50.0 Iron deficiency anemia secondary to blood loss (chronic); R91.8 Other nonspecific abnormal finding of lung field
CPT/HCPCS: 99214; G2211

== ENCOUNTER → 2024-04-26 10:18 | Outpatient (BNVA) | payer MEDICARE, SELFPAY | PROVIDERS: PCP Internal Medicine; Visit Provider Hospitalist | DX: J47.0 Bronchiectasis with acute lower respiratory infection (principal); I27.20 Pulmonary hypertension, unspecified; I26.94 Multiple subsegmental thrombotic pulmonary emboli without acute cor pulmonale; R06.09 Other forms of dyspnea; A31.9 Mycobacterial infection, unspecified; D50.0 Iron deficiency anemia secondary to blood loss (chronic); R91.8 Other nonspecific abnormal finding of lung field | CPT/HCPCS: 99212 ==

== ENCOUNTER 2024-07-25 10:17 | Outpatient (AMB) | payer MEDICARE, SELFPAY ==
--- NOTE | 2024-07-25 10:19 | MHC.OFFVIS ---
Vital Signs 07/25/24 10:20 Height 5 ft 3.5 in Weight 98 lb 1.691 oz BMI 17.1 BP 130/76 Blood Pressure Location Rt brachial Position Sitting Pulse 83 Pulse Source Pulse Oximeter Pulse Oximetry (%) 96 Oxygen Delivery Method Room Air Intake Visit Reasons: copd Allergies codeine Adverse Reaction (Severe, Verified 07/25/24 10:24) Agitated Cipro Allergy (Severe, Uncoded 07/25/24 10:24) Rash HPI Comments Details: The patient is a 79-year-old woman with known history of bronchiectasis, COPD and also nontuberculous mycobacterial infection. She had been treated in the past for this condition. 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 Unfortunately she cannot tolerate quinolones nor THOR due to adverse reactions. She has been doing very well in the meantime. She continues to have shortness of breath with activity mild in severity. Also got worse when she did go up to the high altitudes. Also had productive cough off and on. She continues to use the flutter valve. She has also pulmonary nodules. She had a last CT scan of the chest back in March 2018 that we personally reviewed demonstrating stable pulmonary no 11/09/2021 the patient is here for a pulmonary follow-up visit. Overall the patient has been doing well. She has been participating in pulmonary rehab and has been staying active. She does use her oxygen with activity. This also has been helpful. She also continue with severe chest physical therapy. She does use a percussion vest and this may be affecting her back possibly resulting in some back pain. Patient also has evidence of significant scoliosis. She did undergo pulmonary function studies which was personally by me. It appears that her FVC, FEV1 and diffusing capacity are trending a little bit better. However, her total lung capacity slightly decreased although not significant. This may be multifactorial. But it may to some degree be due to her musculoskeletal issues. I will have her be evaluated by Physical therapy to see if they can provide her with some relief as far as her scoliosis and potentially lung expansion. However, she continues the back pain she also may have to decrease the frequency on her percussion vest which could also be contributing to the pain. In the meantime she will continue participating in pulmonary rehabilitation. No changes on the medications at this time. She did have an EKG sometime in March and she did follow-up with cardiology after that. Will plan to repeat an EKG sometime in the fall 2021. 05/17/2022 the patient is here for pulmonary follow-up visit. Overall she continues to do well from a respiratory status. She continues on the azithromycin. She is using that 3 times a week for the treatment of mycobacterial lung disease. Patient understands that using medication by itself can result in resistance. She also continues to use the hypertonic saline for chest physical therapy. She continues to participate in pulmonary rehab which has been very effective beneficial for her. The only issue is that she still has a persistent cough. The cough for the most part is nonproductive in nature. Sometimes when she starts coughing she has a hard time stopping in therefore she has a hard time going to places like religious or the gatherings where she becomes conscientious about her cough. We talked about different cough suppressants use. Tessalon Perles may be effective however the probably will not be covered. She can also use cough medicine with codeine also in certain occasions where she is at home and not driving which she can take a small dose to help with suppress the cough. The patient has had also some pleuritic chest discomfort. Currently she she states that her symptoms have resolved. If her symptoms persist she is to get a chest x-ray. In the meantime she did have a CT scan of the chest back in June 2021 demonstrating pulmonary nodules and bronchiectatic changes. She is scheduled to have a repeat CT scan June of this year. During the visit the patient did have an EKG done demonstrating normal QTC. Although, her EKG is abnormal with a left bundle branch block and left axis deviation. I did give her a copy of the EKG. This left bundle branch block has been well documented in the past. 08/02/2022 the patient is here for a pulmonary follow-up visit. The patient has not been feeling well now for the last several months. However, she has further declining the last several weeks. Started developing worsening cough with chest congestion. Addition to increasing shortness of breath. She denies any fevers or chills. She denies any sick contacts. The phlegm is thicker and darker in color. Usually yellowish green. She has been taking the azithromycin 3 times a week and was working well for her. She did have a CT scan of the chest sometime in May 2022 which demonstrated the underlying bronchiectatic changes in the bronchiolitis. Relatively unchanged. In the office we were able to give her neb treatment with Xopenex and hypertonic saline. She was able to produce a sputum that was sent for culture and also AFB. In the meantime the patient does have some increased wheezing on examination so therefore will start her on a course of prednisone. She is reluctant to take high doses therefore I gave a small prednisone taper. She has responded well to Augmentin in the past therefore she will also start that. She has had history of Pseudomonas so therefore the patient understands that Pseudomonas would only be treated with quinolones and unfortunately she had a hard time tolerating quinolones in the past. Other options to treat Pseudomonas would be inhaled tobramycin or IV antibiotics if she were to worsen further. For now will just have to await the results of the culture. In meantime she is going to start the antibiotic therapy. 09/20/2022 the patient is here for a pulmonary follow-up visit. Overall she is feeling a lot better. She did complete the prednisone and also the Augmentin. Her sputum culture was positive for Haemophilus influenzae which was penicillin resistant. In addition to that her sputum culture was positive for mycobacterium speciaes. The she has been on the azithromycin 3 times a week. Therefore, explained to her that we are waiting for sensitivities. Clinically the patient is doing better so which is weight she get back the results. Based on the result will talk about any a mentation of the therapy that needs to be done in order to avoid progression of disease. The patient also has complaint of intermittent right-sided chest discomfort. Right now she feels better. She does not have it all the time. It is not reproducible. I did give her chest x-ray order for her to have it x-ray if her symptoms worsen or persist. The patient otherwise feels well and she will monitor closely. Her last CT scan was back in the fall 2021. Therefore will hopefully hold off to repeating the CAT scan of that time. I am hoping to be able to discuss this insipidus with her and decide on management before repeating the imaging. 11/30/2022 the patient is here for a pulmonary hospital follow-up visit. The patient recently came back from [place]. She was noted to have more shortness of breath and hypoxia. She required additional oxygen. Check call the office initially and our nurse triage recommend that she go to the ER. She did go to the ER here although she was subsequently discharged. Unclear the workup she had. She continued having difficulties with breathing. A week later she called again to the office and again will concerned because of the acute on chronic hypoxic respiratory failure airway recommended this time that she go to the [facility] ER. She went to the ER there quickly had a CT scan of the chest PE protocol demonstrating bilateral basilar pulmonary emboli. The patient also had extensive treating budding bronchiectasis due to mycobacterial disease. Therefore, she was started on Eliquis and was subsequently discharged. She the patient did not have an echocardiogram and did not have lower extremity Dopplers for reason. Patient feels a little better. Although she is still short of breath with activity. Wooc-se-obmuesfo severity. She has wondered if she is going to be able to get back to her baseline. The patient did have moderate amount of blood clot burden. Explained to her that this will take a couple months her to clear. In the meantime we need to address her mycobacterial disease. She did culture different organism still sensitive to the azithromycin. I am concerned that monotherapy will result in increased resistance specially with the exposure to other mycobacterial disease. The patient is willing to start ethambutol. She can not started 3 times a week and then increase the azithromycin to daily. If the patient can tolerate that regimen then she can increase the ethambutol to daily as well. On the combination therapy we will plan to repeat her sputum in a couple months. Hopefully the cultures come back negative and we can decrease her regimen again to 3 times a week. In regards the blood clots the patient will have to get an echocardiogram and also a V/Q scan in a couple months to make sure there is complete clearance of her clot burden. She will continue with the Eliquis twice a day as prescribed at this time. 12/16/2022 the patient is here for sick visit. She has been experiencing worsening dyspnea on exertion for the last 1-2 weeks. Progressively getting worse. Denies any significant wheezing are productive cough. Denies any chest pains. He is mainly progressive dyspnea with any exertion. She has been using her oxygen more often. The patient did go for chest x-ray demonstrating his chronic airway disease. No evidence of any active disease. On examination she did not have any worsening wheezing or rhonchi. She has been taking her anticoagulation for the recent blood clots and that she has been taking with good adherence. She has not noticed any red blood in her urine or any black stools or any blood in the stools. The patient has been having increasing lower extremity edema. Also, reviewing her x-ray I do appreciate some haziness suggesting the possibility of increasing vascular congestion. Therefore you treatment with diuretics will be reasonable. The patient also undergo blood work. 01/13/2023 the patient is here for a pulmonary follow-up visit. Overall she is doing about the same. Still complaining of dyspnea on exertion. Her last hemoglobin was 7.5. She does have an appointment with Hematology today. The patient does have very low iron levels. It also very low ferritin level. This is likely aggravated by the starting of the anticoagulation. The patient will need to have this further evaluated. The anticoagulation she should continue likely indefinitely if she can tolerate it especially there was no significant bleeding. The patient did have an unprovoked event. She does have a GI doctor that she sees in the past and I do believe that she needs to go back for re-evaluation. I will put in referral at this time. The patient also is complaining of lower extremity swelling. She did respond well to the Lasix. She takes additional Lasix at this time. She also had an echocardiogram that was personally reviewed. The patient does have mild pulmonary hypertension that is likely contributing to the edema although not completely. She has also taken a calcium channel rosio that may also be contributing as well. The patient will take the Lasix for 3 days and movement in a low-sodium diet and will reassess. If she continues to have swelling she will call as far as the mycobacterial disease the patient is tolerating the macrolide and ethambutol on a daily basis. Her blood work was reassuring. She will continue taking the daily dose at this time since she can not tolerate it. Her cough is overall better new lungs are clear. Her CT scan did demonstrate significant tree in budding and bronchiectasis. She will need a repeat CT scan in the near future. 02/18/2023 the patient is here for a follow-up visit. Patient continues to have dyspnea on exertion. Moderate severity. The oxygen is partially helpful. She has been on all her respiratory therapy. The patient did undergo a V/Q scan in order to follow-up with her pulmonary emboli. I did get a critical call with the V/Q scan findings therefore I had her come in so we can discuss it. It appears that the V/Q scan still shows V/Q mismatches in the areas where she was documented to have blood clots back in October. Therefore the patient has not had significant improvement of the clot brought in after more than 3 months of therapy with Eliquis. Therefore, she is not responding to the anticoagulation. She did have an echocardiogram also in December demonstrating pulmonary hypertension likely from the result of the chronic thromboembolic disease. In the meantime she has been dealing with the issue with the anemia. She will be evaluated by GI soon regarding potential endoscopy to assess for any occult bleeding in view of the significant anemia while on the Eliquis. We did talk about alternative therapies for anticoagulation. Coumadin will be difficult in view of her antibiotic use for the mycobacterial disease. We also talked but injectables including Lovenox and doubt the parent. I did speak briefly with Hematology and they did agree that does to injectables would be reasonable. The dalteparin would be easier as it is only once a day. Fondaparinux is also as good option. I will make a referral to the [facility] chronic thrombo-embolic disease clinic for furter evaluation. 03/17/2023 the patient is here for a pulmonary follow-up visit. She continues to have significant dyspnea on exertion. Has a hard time doing any activities outside of the house causing her to have significant fatigue the next day. She is having hard time. Recently was evaluated by Hematology. It was noted that hemoglobin dropped from 9.9-9.1. Ferritin level continues to be low even on iron supplementation. Not she is scheduled to undergo IV iron infusions. In addition to that she is scheduled for her endoscopy colonoscopy on Tuesday. 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 We also again talked about her abnormal V/Q scan. the results were suggestive of the possibility of acute or chronic clot. Difficult to differentiate since a did not have the CTA available. I had looked at the CTA and felt strongly that there were all chronic clots. Although still suggesting that she is failing Eliquis. In view of the positive of acute on chronic clots will request a CTA to better address the abnormal V/Q scan findings. Also based on the fact the patient continues to be symptomatic. we did talk about the importance of considering a different anticoagulation agent. However, will have to wait until after she is further evaluated for the anemia as additional blood thinners may be potential problematic if they worsen her anemia. 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 will wait to see if she is consider. One option will be to consider vasodilators therapy for the patient to help her with the pulmonary hypertension. 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 She also continues use her oxygen. She finds that she is using her oxygen more often. 04/21/2023 the patient is here for preoperative evaluation. The patient overall is feeling better today. She has been using her oxygen with good effect. She is completing a course of prednisone. She has 3 more days. Her respiratory exam is indeed better without any significant wheezing which is reassuring. Right now I believe she is at her best from a respiratory status. She did undergo pulmonary function studies the in addition to an ABG. It appears that she does have a severe obstruction consistent with severe COPD which is very similar to her PFTs for the last 2 years. She also has a mild restriction and has a severe diffusion impairment hence the need for oxygen supplementation. Her blood work asthma is actually very reassuring with a normal pH the the and a pCO2 of 34.6 mmHg which is reassuring the the. The PO2 was 78 mmHg on her oxygen supplementation of 2 L. the patient also has been on Eliquis for the blood clots. She understands because she is high risk for further clot formation when she has surgery she will need to stop the Eliquis 3 days prior and ultimately start Lovenox 12 hours after stopping her Eliquis. We did talk about her risk regarding surgery. The patient does have severe respiratory disease and therefore she does have high risk for perioperative pulmonary complications which includes worsening hypoxia, atelectasis, pneumonia and also prolonged mechanical ventilation. At this point the patient is medically maximized from a respiratory status and there are no other alternative, only surgery. 07/28/2023 the patient is here for pulmonary follow-up visit. She has had a very eventful few months. She did undergo her bowel resection for the colon cancer and that was successful. The patient has been able to tolerate the Eliquis and seems like hemoglobins overall better. The iron and ferritin levels also normalized. She has having a lot of constipation so I did recommend she can stop the iron supplementation for now to see if that can improve her significant constipation. Also the patient was evaluated in [place] for her chronic thromboembolic disease and pulmonary hypertension. 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 however, during the angiogram apparently she went into cardiac arrest. I do not have the records at this time . the patient had to be defibrillated and she did stay in the hospital for 3 days. Now she has a Holter monitor. She was started on sildenafil which she will be starting the next day or so for her pulmonary hypertension. In the meantime she continues on the azithromycin and ethambutol for her mycobacterial disease. She was kept in the macrolide therapy. We have to make sure that she is tolerating the macrolide therapy with cardiac history. She did have an EKG in [place]. Will also make sure she has the referral with Cardiology locally as she had this very significant event. 10/14/2023 the patient is here for a pulmonary follow-up visit. Overall she has been doing better on the sildenafil. She is taking it 3 times a day. She has been able to have less shortness of breath. She is able to ambulate without the oxygen regularly which is referring. The patient has been having issues with weight loss. She will be seeing her oncologist soon regarding her lung cancer. The patient has been using the azithromycin in the rifampin for the treatment of the mycobacterial disease. At this point will continue the therapy. The patient has cough and chest congestion has improved significantly. The patient has underlying pulmonary nodules. She should have a repeat CT scan of the chest soon to address the nodular densities. the patient also continues on the anticoagulation therapy. She does tolerated well. No evidence of any active bleeding. 01/12/2024 the patient is here for a pulmonary follow-up visit. Since we last spoke unfortunately she was diagnosed with recurrence of her colon cancer. Now spread to the area of the perineum. The patient did start chemotherapy with in for medication cocktail. She does have a Port-A-Cath. She has been tolerating the chemo. Although she started developing a cough. The cough has been nonproductive in nature. Moderate severity. She continues on her anti mycobacterial therapy she also continues on her Eliquis. She also continues on her sildenafil for the pulmonary hypertension. Based on her chemotherapy agents I suspect that the worsening cough is likely an adverse effects from the chemo. Is fairly common. No significant congestion which is reassuring. Will try to simplify her medication regimen specially now that she is dealing with this new issue. In addition to that will place her on a low-dose prednisone taper to see if she develops any improvement. In the meantime will have her also start budesonide nebs that she can continue once she completes the prednisone. She should be using albuterol along with the budesonide twice a day. 03/30/2024 the patient is here for sick visit. She has had some difficulty with her breathing and cough for the last several weeks. She called in a few times since she was given prescription antibiotics. She did complete a course of Augmentin and before that she had been on doxycycline. Still having significant issues with very tenacious green phlegm. Difficult to expectorate. The patient also feels weak and tired. she is also having significant dyspnea on exertion. She does have the oxygen available. She is on chemotherapy. Therefore, she does have a we can immune system. referring to get a sputum culture in the office. It appeared to be consistent with an enteric organisms. Will start him on Bactrim to treat her for potential stenotrophomonas. Unfortunately if Pseudomonas she can not tolerate quinolones and she also has not been able to tolerate inhaled tobramycin. Therefore, will send a sputum culture and await the results. The the patient does need IV antibiotics she may need to go to the hospital for failed outpatient therapy. 04/26/2024 the patient is here for a pulmonary follow-up visit. Since we last spoke she did have a sputum culture sent positive for stenotrophomonas. She was placed on Bactrim. Seems to be tolerating that well. Although the Bactrim does make a little bit dizzy. Also when she takes the Revatio that makes her dizzy as well. She did have a recent echocardiogram demonstrating only mild pulmonary hypertension which is reassuring. Therefore will go ahead and try to decrease her adverse effects by decreasing the amount of medication where she can decrease the fascial to twice a day and also decrease the Bactrim just once a day. She will continue with the therapy though. The patient continues with respiratory therapy with good effect. And she continues on the azithromycin for the mycobacterial disease. She continues on chemotherapy infusions and she is tolerating that well as well. No recent imaging to review. Will follow-up in 3 months. If she develops any issues prior to that she will call for an earlier assessment. 07/25/2024 the patient is here for a pulmonary follow-up visit. Overall she is doing okay from respiratory status. She is coughing at times productive in nature. She has been on the Bactrim for the stenotrophomonas. At this point will try to hold off on additional antibiotic therapy. She has been having issues with dizziness. We had decreased her sildenafil to twice a day to try to minimize symptoms but she still having it. She try to decrease the sildenafil further half a tablet and see this provides side effect relief. Most likely she is experiencing some orthostatic dysfunction which could be secondary to chemotherapy. The patient did have a recent CT scan of the chest and abdomen. She is going to follow-up with her oncologist soon. Unfortunately, it looks like the cancer is progressing in the pelvic area. No evidence of any acute lung issues on her CT scan of the chest. The patient will follow-up in 3 months. If any issues arise she can always call for an earlier assessment. [facility] Medical History (Updated 04/01/24 @ 23:03 by Bang Rocha MD) Pneumonitis Cardiac arrest Chronic thromboembolic disease Anemia aplastic aregenerative Pulmonary hypertension Dyspnea Anemia Pulmonary emboli Chest pain Back pain of thoracolumbar region Nodule on liver Abnormal EKG Asthma-COPD overlap syndrome Hypoxia D-dimer, elevated Pulmonary nodules Mycobacterial disease Asthma Bronchiectasis Social History Household Members: Spouse Household Members Other:: Fili Patient Tobacco Use Status: Never used Tobacco Second Hand Smoke Exposure: No service: No Review of Systems Const Denies chills, Denies fever(s), Denies night sweats and Reports weight loss ENT Denies change in voice, Reports dizziness, Denies lip swelling, Denies mouth pain, Reports nasal congestion, Reports nasal discharge and Denies tongue swelling Card Denies chest pain and Reports dyspnea on exertion Resp Denies change in phlegm color, Denies chest congestion, Reports cough, Denies hemoptysis, Reports excessive phlegm production, Denies pain on inspiration, Denies pain with cough, Reports dyspnea on exertion and Denies wheezing GI Reports as per HPI and Reports nausea Musc Reports back pain and Reports tingling Skin/Breast Denies rash Neuro Denies Neuro-related abnormal movements, Reports dizziness, Reports tingling and Reports paresthesias Psych Denies no additional complaints Jake/Lymph Denies easy bleeding and Denies lymphadenopathy Aller/Immun Denies lip swelling, Denies tongue swelling and Denies wheezing Physical Exam Vital Signs: Last Vital Signs Pulse 83 07/25/24 10:20 BP 130/76 07/25/24 10:20 Pulse Ox 96 07/25/24 10:20 Oxygen Delivery Method Room Air 07/25/24 10:20 BMI result Body Mass Index 17.1 Const General: alert Neck Neck: Yes normal visual inspection, Yes full ROM and Yes no lymphadenopathy Chest Chest palpation & inspection: normal inspection of the chest Resp Effort & Inspection: normal respiratory effort Auscultation: no crackles, no rales, no rhonchi, no wheezes and diminished lung sounds Cardio Rate: regular rate Rhythm: regular rhythm Heart sounds: S1 normal heart sound present and S2 normal heart sound present GI Palpation (GI): Soft to palpation and nontender Auscultation: normal bowel sounds Skin General skin exam: rashes and/or lesions noted Extrem General: No clubbing, No cyanosis and Yes edema Assessment & Plan Assessment & Plan (1) Bronchiectasis: Code(s): J47.9 - Bronchiectasis, uncomplicated Category: Medical Qualifiers: Bronchiectasis type: with acute lower respiratory infection Qualified Code(s): J47.0 - Bronchiectasis with acute lower respiratory infection (2) Pulmonary hypertension: Code(s): I27.20 - Pulmonary hypertension, unspecified Category: Medical (3) Pulmonary embolism: Code(s): I26.99 - Other pulmonary embolism without acute cor pulmonale Category: Medical Qualifiers: Pulmonary embolism type: multiple subsegmental (without acute cor pulmonale) Qualified Code(s): I26.94 - Multiple subsegmental pulmonary emboli without acute cor pulmonale (4) Chronic thromboembolic disease: Code(s): I74.9 - Embolism and thrombosis of unspecified artery Category: Medical (5) Dyspnea: Code(s): R06.00 - Dyspnea, unspecified Category: Medical Qualifiers: Dyspnea type: dyspnea on exertion Qualified Code(s): R06.09 - Other forms of dyspnea (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, unspecified Category: Medical (7) Anemia: Code(s): D64.9 - Anemia, unspecified Category: Medical Qualifiers: Anemia type: iron deficiency Iron deficiency anemia type: chronic blood loss Qualified Code(s): D50.0 - Iron deficiency anemia secondary to blood loss (chronic) (8) Pulmonary nodules: Code(s): R91.8 - Other nonspecific abnormal finding of lung field Category: Medical Plan Continue azithromycin stop bactrim Budesonide nebs BID albuterol nebs BID ANUSHA as needed continue oxygen supplementation continue Revatio TID, ok to decrease to BID due to dizziness, will try taking half tablet 3 times day F/U wit Oncology continue Eliquis F/U 3-4 months Coding Level of Care Code Est Pt Level 4 (91955) Complex EM visit Add On G2211 Diagnoses Bronchiectasis with acute lower respiratory infection J47.0 Bronchiectasis type: with acute lower respiratory infection Pulmonary hypertension I27.20 Multiple subsegmental pulmonary emboli without acute cor pulmonale I26.94 Pulmonary embolism type: multiple subsegmental (without acute cor pulmonale) Chronic thromboembolic disease I74.9 Dyspnea on exertion R06.09 Dyspnea type: dyspnea on exertion Mycobacterial disease A31.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
[2024-07-25 10:20] VITALS: BP 130/76; PULSE 83; O2SAT 96; BMI 17.1
== END 2024-07-25 10:44 | disposition home or self-care (01) ==
PROVIDERS: PCP Internal Medicine; Visit Provider Hospitalist
DX: J47.0 Bronchiectasis with acute lower respiratory infection (principal); I27.20 Pulmonary hypertension, unspecified; I26.94 Multiple subsegmental thrombotic pulmonary emboli without acute cor pulmonale; I74.9 Embolism and thrombosis of unspecified artery; R06.09 Other forms of dyspnea; A31.9 Mycobacterial infection, unspecified; D50.0 Iron deficiency anemia secondary to blood loss (chronic); R91.8 Other nonspecific abnormal finding of lung field
CPT/HCPCS: 99214; G2211

== ENCOUNTER → 2024-07-25 10:17 | Outpatient (BNVA) | payer MEDICARE, SELFPAY | PROVIDERS: PCP Internal Medicine; Visit Provider Hospitalist | DX: J47.0 Bronchiectasis with acute lower respiratory infection (principal); R91.8 Other nonspecific abnormal finding of lung field; I27.20 Pulmonary hypertension, unspecified; I26.94 Multiple subsegmental thrombotic pulmonary emboli without acute cor pulmonale; I74.9 Embolism and thrombosis of unspecified artery; R06.09 Other forms of dyspnea; A31.9 Mycobacterial infection, unspecified; D50.0 Iron deficiency anemia secondary to blood loss (chronic) | CPT/HCPCS: 99212 ==